=== PATIENT | female | born 2005 | race Caucasian/White ===

== ENCOUNTER 2023-03-03 12:19 | Outpatient (OUT) | payer OTHER, SELFPAY | END 2023-03-03 12:20 | disposition home or self-care (01) | LOC: PST 12:25 | PROVIDERS: Family Provider Family Medicine; PCP Family Medicine; Visit Provider Obstetrics & Gynecology | DX: Z01.818 Encounter for other preprocedural examination (principal); O02.1 Missed abortion ==

== ENCOUNTER 2023-03-05 06:16 | Day surgery (SDC) | payer OTHER, SELFPAY ==
[2023-03-03 12:47] VITALS: BP 112/65; PULSE 97; RESP 20; TEMP 36.1; O2SAT 98; BMI 25.5
[2023-03-05] VITALS (14 sets, daily range): BP systolic 105–118; BP diastolic 58–80; PULSE 62–102; RESP 14–39; TEMP 36.3–36.4; O2SAT 98–100; BMI 25.5
[2023-03-05 06:30] LABS: Basophils Absolute Auto 0.1 10^3/uL (0.0-0.1); Basophils Percent Auto 0.5 % (0.2-2.0); Eosinophils Absolute Auto 0.2 10^3/uL (0.0-0.7); Eosinophils Percent Auto 1.5 % (0.9-7.0); Hematocrit 37.6 % (36.0-48.0); Hemoglobin 12.4 g/dL (12.0-16.0); Immature Granulocytes Abs Auto 0.03 10^3/uL (0.00-0.03); Immature Granulocytes Pct Auto 0.3 % (0.0-0.5); Lymphocytes Absolute Auto 2.9 10^3/uL (1.2-3.8); Mean Corpuscular Hemoglobin 28.4 pg (26.7-34.0); Mean Corpuscular Volume 86.2 fL (81.0-99.0); Mean Platelet Volume 8.5 fL (9.5-13.5); Monocytes Absolute Auto 0.8 10^3/uL (0.3-0.8); Neutrophils Percent Auto 60.7 % (43.0-75.0); Platelet Count 315 10^3/uL (150-450); Red Blood Count 4.36 10^6/uL (4.20-5.40); Red Cell Distribution Width 14.2 % (11.0-15.0); White Blood Count 9.9 10^3/uL (4.0-11.0)
[2023-03-05 07:07] LABS: HCG Quantitative 8822 mIU/mL
[2023-03-05] MEDS: LACTATED RINGER'S SOLUTION 1,000 ML 50 ML IV (07:17)
--- NOTE | 2023-03-05 09:29 | PC.NURSE ---
Peripad changed for small amount bleeding; no clots noted; denies urge to void
--- NOTE | 2023-03-05 09:34 | P.ON_ITS ---
Brief Operative Note Date of procedure: 03/05/23 Pre-op diagnosis: missed Post-op diagnosis: same Procedure: NAME OF PROCEDURE: [D&C suction ] PROCEDURE: The patient was taken back to the OR where she was given general anesthesia w ithout difficulty. She was then placed in dorsal lithotomy position, prepped and draped in the normal sterile fashion. A weighted speculum was placed in the patient's vagina and the anterior lip of the cervix was identified and grasped with a single-tooth tenaculum. The patient was then gently dilated using Hegar dilators after we had sounded roughly to 12 cm. The suction curette was then tested. The suction curette was then placed in the patient's uterus and products of conception were removed using an 8-Portuguese suction curette. ?Excellent hemostasis was noted. The patient tolerated the procedure well. Sponge, lap, and needle counts were correct x 2. All instruments were then removed from the patient's vagina. The patient was taken to the Recovery Room in stable condition. ?? Anesthesia: SOBEIDAA Surgeon: Filiberto Brunson Estimated blood loss (mL): 20 Pathology: other (products of conception) Condition: stable Disposition: PACU
[2023-03-05] MEDS: LACTATED RINGER'S SOLUTION 1,000 ML 100 ML IV (09:47)
--- NOTE | 2023-03-05 09:59 | PC.NURSE ---
Denies urge to void; peripad has scant bloody drainage
--- NOTE | 2023-03-05 10:29 | PC.NURSE ---
pt urinates without difficulty at 1015
== END 2023-03-05 10:33 | disposition home or self-care (01) ==
PROVIDERS: Family Provider Family Medicine; PCP Family Medicine; Visit Provider Obstetrics & Gynecology
PROC: (CPT 1965; principal; 2023-03-05 07:30)
DX: O02.1 Missed abortion (principal)
CPT/HCPCS: 59820; 36415; 84702; 85025; 86850; 86900; 86901; 88305; J2704

== ENCOUNTER 2024-04-06 17:38 | Emergency (ER) | payer OTHER, SELFPAY ==
[2024-04-06 17:45] VITALS: BP 137/77; PULSE 97; TEMP 37.1; O2SAT 98; BMI 24.8
--- NOTE | 2024-04-06 17:48 | US_ITS ---
The [address] [address] Patient Name: ABHILASH CHOI MRN: [id number] date: 2005 Sex: F Assigned Patient Location: ER Current Patient Location: ED.MAIN Accession/Order Number: [id number] Exam Date: 04/06/2024 18:00 Report Date: 04/06/2024 19:31 At the request of: CONCHITA RIDER Procedure: US OB transvaginal EXAMINATION: US OB transvaginal TECHNIQUE: Transvaginal sonography. Grayscale and color flow Doppler imaging. HISTORY: rule out ectopic. COMPARISON: None. FINDINGS: Uterus and cervix: Uterus is normal size and retroverted. No focal abnormality. Endometrium: Thickness measures 14mm. Endometrium is unremarkable. No evidence for intrauterine . Right ovary: Measures 2.6 x 1.0 x 1.9 cm. Normal marinelli scale and Doppler appearance. Left ovary: Measures 4 x 2.6 x 3.2 cm. 2 cm corpus luteum of the left ovary. Normal left ovary blood flow. Adnexa: No adnexal mass lesion. Cul-de-sac: Small amount of anechoic simple free fluid in the adnexa. US/US OB transvaginal IMPRESSION: No demonstrable intrauterine or extrauterine . Continued monitoring of beta hCG levels recommended with repeat ultrasound if clinically necessary. Electronically authenticated by: BRIELLE KAT Date: 04/06/2024 19:31
--- NOTE | 2024-04-06 17:53 | ED_ITS ---
HPI - Abdominal Pain General Chief Complaint: Abdominal Pain Stated Complaint: 4 WEEKS Time Seen by Provider: 04/06/24 17:41 Source: patient Mode of arrival: walk-in Limitations: no limitations History of Present Illness HPI narrative: Patient is a 18-year-old female G2, who presents to the emergency department at approximately 4 weeks for evaluation of a possible ectopic. She was referred to the emergency department by her [facility] consultant. She states last night she had sharp pain radiating from the left lower quadrant into the suprapubic abdomen. She states today the pain is dull. No medications taken prior to arrival. She denies fevers, vomiting, vaginal bleeding or fluid leakage. No vaginal discharge. She has not had any urinary symptoms. She had a miscarriage about 1 year ago with D&C. Related Data Home Medications ?Medication ?Instructions ?Recorded ?Confirmed No Known Home Medications 04/06/24 04/06/24 Allergies Allergy/AdvReac Type Severity Reaction Status Date / Time No Known Drug Allergies Allergy Verified 03/05/23 07:18 Review of Systems ROS Constitutional Denies: fever or chills Ears, nose, mouth, and throat Denies: throat pain or nasal congestion Respiratory Denies: shortness of breath Gastrointestinal Reports: abdominal pain; Denies: nausea or vomiting Genitourinary Reports: pelvic pain; Denies: painful urination or urinary frequency Musculoskeletal Denies: back pain or neck pain Integumentary/Breast Denies: rash Neurological Denies: numbness in extremities or weakness in extremities Hematologic/Lymphatic Denies: easy bruising or easy bleeding PFSH PFS Medical History (Updated 04/06/24 @ 19:52 by ANNMARIE Gramajo) Missed ab ?O02.1 - Missed (ICD-10) Family History (Updated 03/03/23 @ 12:43 by Coco Willis RN) Other Family history of COPD (chronic obstructive pulmonary disease) Family history of diabetes mellitus Social History Within the past year, how often did you have a drink containing alcohol: never Score interpretation: A score less than 3 is consistent with normal alcohol consumption. Smoking status: Never smoker Non-prescribed substance use: denies use Previous occupational history: [employer] Known occupational exposures/hazards: No Highest level of school completed/degree received: high school graduate Little interest or pleasure in doing things: more than half the days Feeling down, depressed, or hopeless: not at all Feel stressed/tense/nervous/anxious/difficulty sleeping: not at all Exam Narrative Exam Narrative: Gen.: Awake, alert, in no distress Head: Normocephalic, atraumatic ENT: Moist mucous membranes Respiratory: No respiratory distress Gastrointestinal: Abdomen is soft, nondistended and mildly tender to palpation in the left lower quadrant with no guarding or rebound. No pain out of proportion on exam Extremities: Moves extremities equally Psych: Normal mood and affect Neuro: No focal neuro deficit Skin: Warm, dry, intact Constitutional Vital Signs, click to edit/add: Last Vital Signs Temp 98.7 F 04/06/24 17:45 Pulse 97 H 04/06/24 17:45 Resp 18 04/06/24 17:45 BP 137/77 04/06/24 17:45 Pulse Ox 98 04/06/24 17:45 O2 Del Method Room Air 04/06/24 17:45 Course Vital Signs Vital signs: Vital Signs Temperature 98.7 F 04/06/24 17:45 Pulse Rate 97 H 04/06/24 17:45 Respiratory Rate 18 04/06/24 17:45 Blood Pressure 137/77 04/06/24 17:45 Pulse Oximetry 98 04/06/24 17:45 Oxygen Delivery Method Room Air 04/06/24 17:45 Temperature 98.7 F 04/06/24 17:45 Pulse Rate 97 H 04/06/24 17:45 Respiratory Rate 18 04/06/24 17:45 Blood Pressure 137/77 04/06/24 17:45 Pulse Oximetry 98 04/06/24 17:45 Oxygen Delivery Method Room Air 04/06/24 17:45 MDM - Abdominal Pain MDM Narrative Medical decision making narrative: Quantitative hCG level is 300, urine specimen is unremarkable. Abdomen is soft and benign with stable vital signs. Patient with Rh+ blood type on file from previous. Ultrasound with no evidence of , likely due to low hCG. Patient given education and reassurance, she will need to follow closely with her [facility] provider for repeat testing of quantitative hCG levels. Return to the ER if symptoms change or worsen. Continue Tylenol as needed. SUPERVISED APC VISIT, PHYSICIAN ATTESTATION: Based on the medical record the care appears appropriate. ? Medical Records Attestation: I reviewed the patient's medical records. Lab Data Labs: Lab Results 04/06/24 04/06/24 Range/Units 17:56 19:25 WBC 7.4 (4.0-11.0) 10^3/uL RBC 4.59 (4.20-5.40) 10^6/uL Hgb 12.3 (12.0-16.0) g/dL Hct 38.5 (36.0-48.0) % MCV 83.9 (81.0-99.0) fL MCH 26.8 (26.7-34.0) pg MCHC 31.9 (29.9-35.2) g/dL RDW 14.5 (11.0-15.0) % Plt Count 325 (150-450) 10^3/uL MPV 9.2 L (9.5-13.5) fL Neut % (Auto) 65.1 (43.0-75.0) % Lymph % (Auto) 24.1 (20.5-60.0) % [place] % (Auto) 9.2 (1.7-12.0) % Eos % (Auto) 0.8 L (0.9-7.0) % Baso % (Auto) 0.4 (0.2-2.0) % Neut # (Auto) 4.8 (1.4-6.5) 10^3/uL Lymph # (Auto) 1.8 (1.2-3.8) 10^3/uL [place] # (Auto) 0.7 (0.3-0.8) 10^3/uL Eos # (Auto) 0.1 (0.0-0.7) 10^3/uL Baso # (Auto) 0.0 (0.0-0.1) 10^3/uL Abs Immat Gran (auto) 0.03 (0.00-0.03) 10^3/uL Imm/Tot Granulo (auto) 0.4 (0.0-0.5) % HCG, Quant 308 mIU/mL Urine Color Yellow (YELLOW) Urine Clarity Clear (CLEAR) Urine pH 6.0 (5.0-9.0) Ur Specific [place] >=1.030 A (1.005-1.025) Urine Protein Negative (NEG/TRACE) mg/dL Urine Glucose (UA) Negative (NEGATIVE) mg/dL Urine Ketones 15 A (NEGATIVE) mg/dL Urine Occult Blood Negative (NEGATIVE) Urine Nitrite Negative (NEGATIVE) Urine Bilirubin Negative (NEGATIVE) Urine Urobilinogen 0.2 (0.2-1.0) EU/dL Ur Leukocyte Esterase Negative (NEGATIVE) Imaging Data US - abdomen: Attestation: I have reviewed the pertinent imaging results. Radiologist's impression: ITS Impressions Transvaginal US 04/06/24 17:48 IMPRESSION: No demonstrable intrauterine or extrauterine . Continued monitoring of beta hCG levels recommended with repeat ultrasound if clinically necessary. Electronically authenticated by: BRIELLE KAT Date: 04/06/2024 19:31 Discharge Plan Discharge Chief Complaint: Abdominal Pain Clinical Impression: Pelvic pain Patient Disposition: Home, Self-Care Time of Disposition Decision: 19:52 Condition: Good Prescriptions / Home Meds: No Action No Known Home Medications Print Language: Filipino Instructions: Abdominal Pain in (ED) Referrals: LAURA CANALES [Primary Care Provider] - 1 week TIAGO BRIZUELA APRN, CNM [Physician] - As soon as possible
[2024-04-06 18:48] LABS: Basophils Percent Auto 0.4 % (0.2-2.0); Eosinophils Absolute Auto 0.1 10^3/uL (0.0-0.7); Eosinophils Percent Auto 0.8 % (0.9-7.0); Hematocrit 38.5 % (36.0-48.0); Hemoglobin 12.3 g/dL (12.0-16.0); Immature Granulocytes Abs Auto 0.03 10^3/uL (0.00-0.03); Immature Granulocytes Pct Auto 0.4 % (0.0-0.5); Lymphocytes Absolute Auto 1.8 10^3/uL (1.2-3.8); Lymphocytes Percent Auto 24.1 % (20.5-60.0); Mean Corpuscular HGB Conc 31.9 g/dL (29.9-35.2); Mean Corpuscular Hemoglobin 26.8 pg (26.7-34.0); Mean Corpuscular Volume 83.9 fL (81.0-99.0); Mean Platelet Volume 9.2 fL (9.5-13.5); Monocytes Absolute Auto 0.7 10^3/uL (0.3-0.8); Monocytes Percent Auto 9.2 % (1.7-12.0); Neutrophils Absolute Auto 4.8 10^3/uL (1.4-6.5); Neutrophils Percent Auto 65.1 % (43.0-75.0); Platelet Count 325 10^3/uL (150-450); Red Blood Count 4.59 10^6/uL (4.20-5.40); Red Cell Distribution Width 14.5 % (11.0-15.0); White Blood Count 7.4 10^3/uL (4.0-11.0)
[2024-04-06 19:15] LABS: HCG Quantitative 308 mIU/mL
[2024-04-06 19:48] LABS: Bilirubin Urine NEGATIVE (NEGATIVE); Blood Urine NEGATIVE (NEGATIVE); Clarity Urine CLEAR (CLEAR); Color Urine YELLOW (YELLOW); Glucose Urine UA NEGATIVE (NEGATIVE); Ketones Urine 15 mg/dL (NEGATIVE); Leukocyte Esterase Urine NEGATIVE (NEGATIVE); Nitrite Urine NEGATIVE (NEGATIVE); Protein Urine NEGATIVE (NEG/TRACE); Specific Gravity Urine >=1.030 (1.005-1.025); Urobilinogen Urine 0.2 EU/dL (0.2-1.0)
[2024-04-06 19:49] LABS: Urine Microscopic Indicated NO
== END 2024-04-06 19:59 | disposition home or self-care (01) ==
PROVIDERS: Physician Assistant; Emergency Provider Student in an Organized Health Care Education/Training Program; Family Provider Family Medicine; PCP Family Medicine
DX: R10.2 Pelvic and perineal pain (principal)
CPT/HCPCS: 36415; 76817; 81003; 84702; 85025; 99284

== ENCOUNTER 2024-08-09 19:05 | Outpatient (OUT) | payer OTHER, SELFPAY ==
--- NOTE | 2024-08-09 19:19 | US_ITS ---
[address] [address] Patient Name: ABHILASH CHOI MRN: [id number] date: 2005 Sex: F Assigned Patient Location: US Current Patient Location: Accession/Order Number: [id number] Exam Date: 08/09/2024 19:25 Report Date: 08/10/2024 07:19 At the request of: TIAGO BRIZUELA Procedure: US OB anatomy EXAMINATION: US OB anatomy HISTORY: RELATED CONDITION IN SECOND TRIMESTER O26.92 COMPARISON: No relevant comparison available. TECHNIQUE: Transabdominal sonographic examination was performed for obstetrical and evaluation. FINDINGS: Number: 1 Heart Rate: 149.17 bpm H.B. /min Amniotic Fluid Volume: Subjectively normal Placental Location: ANTERIOR, grade 1. Placental edge is 7.6 cm from the internal cervical os Cervix Length: 3.41 cm , closed Normal anatomy: Lateral ventricles, cerebellum, posterior fossa, nose, lips, orbits, four-chamber heart, RVOT, LVOT, diaphragm, stomach, kidneys, abdominal cord insertion, bladder, umbilical arteries, three-vessel cord, spine, extremities BIOMETRY: BPD: 5.24 cm; 21 weeks 6 days; 31.70 % HC: 19.36 cm; 21 weeks 4 days; 13.50 % AC: 16.83 cm; 21 weeks 6 days; 27.80 % FL: 3.94 cm; 22 weeks 5 days; 53.10 % EFW:479.47 g; 36.10 % FL/AC: 23.41 FL/BPD: 75.22 HC/AC: 1.15 GESTATIONAL AGE: Age by EDC: 22 weeks 2 days OZZIE by EDC: 2024-12-11 Age by current US: 22 weeks 0 days OZZIE by current US: 2024-12-13 US/US OB anatomy IMPRESSION: Normal anatomy scan *Reference: [facility] Practice Guideline for the performance of Obstetric Ultrasound Examinations, May 02, 2007. Electronically authenticated by: LISA RAMSEY Date: 08/10/2024 07:19
== END 2024-08-09 19:06 | disposition home or self-care (01) ==
PROVIDERS: Family Provider Family Medicine; PCP Family Medicine; Visit Provider Midwife
DX: O26.92 Pregnancy related conditions, unspecified, second trimester (principal); Z3A.22 22 weeks gestation of pregnancy
CPT/HCPCS: 76805

== ENCOUNTER 2024-12-14 09:38 | Inpatient (IN) | payer OTHER, SELFPAY ==
[2024-12-14] VITALS (33 sets, daily range): BP systolic 113–150; BP diastolic 56–96; PULSE 60–105; TEMP 36.5–36.9
--- OUTSIDE RECORDS SUMMARY | 2024-12-14 10:01 | XMS_ITS | CCD ---
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 Name Role Phone Iain SAUL, Karma Jain Primary Care Provider [phone] FLORO, TIAGO L Attending Unavailable FLORO, TIAGO L Attending Unavailable FLORO, TIAGO L Referring Unavailable FLORO, TIAGO L Attending Unavailable FLORO, TIAGO L Attending Unavailable FLORO, TIAGO L Attending Unavailable KIM, AMISHA Mccoy Attending Unavailable JUDY, AMISHA Mccoy Attending Unavailable KARMA TIMMONS Attending Unavailable FLORO, TIAGO Cinthia Attending Unavailable FLORO, ITAGO L Attending Unavailable FLORO, TIAGO L Attending Unavailable FLORO, TIAGO L Referring Unavailable FLORO, TIAGO L Attending Unavailable FLORO, TIAGO L Attending Unavailable FLORO, TIAGO L Referring Unavailable FLORO, TIAGO L Attending Unavailable FLORO, TIAGO L Referring Unavailable FLORO, TIAGO L Attending Unavailable FLORO, TIAGO L Attending Unavailable Allergies Allergy Classification Reported Allergen(s) Allergy Type Date of Onset Reaction(s) Facility (20 sources) [place] Propensity to adverse reactions 1 [facility] Medications Current Medications Medication Drug Class(es) Dates Sig (Normalized) Sig (Original) Vit-Fe Fumarate-FA ( Vitamins) 27-0.8 MG tablet (20 sources) Vit-Fe Fumarate-FA ( Vitamins) 27-0.8 MG tablet Take by mouth Active sertraline 25 mg oral tablet (20 sources) Serotonin Reuptake Inhibitor Start: 07-31-2024 take 1 tablet by mouth once daily sertraline (Zoloft) 25 MG tablet Indications: Anxiety, generalized (CMS/HCC) Take 1 tablet (25 mg) by mouth Daily 30 tablet 2 07/31/2024 Active Completed/Discontinued Medications Medication Drug Class(es) Dates Sig (Normalized) Sig (Original) amitriptyline hydrochloride 25 mg oral tablet (3 sources) Tricyclic Antidepressant Start: 01-25-2024 End: 04-11-2024 take 1 tablet by mouth at bedtime amitriptyline (Elavil) 25 MG tablet Indications: Primary insomnia Take 1 tablet (25 mg) by mouth at bedtime 30 tablet 1 01/25/2024 04/11/2024 Discontinued (Therapy completed) ethinyl estradiol 0.02 mg / levonorgestrel 0.1 mg oral tablet (3 sources) Progestin, Estrogen, Progestin-containing Intrauterine Device Start: 12-21-2023 End: 04-11-2024 take 0.1-20 tablets by mouth once daily levonorgestrel-eth inyl estradiol (Aviane, Alesse, Lessina) 0.1-20 MG-MCG tablet Indications: Menorrhagia with regular cycle Take 1 tablet by mouth Daily 28 tablet 2 12/21/2023 04/11/2024 Discontinued (Therapy completed) Problems Active Problems Problem Classification Problem Date Documented Date Episodic/Chronic Anxiety disorders (20 sources) Posttraumatic stress disorder; Translations: [Post-traumatic stress disorder, unspecified] Onset: 03-29-2023 03-29-2023 Chronic Headache; including migraine (20 sources) Chronic cluster headache; Translations: [Chronic cluster headache, not intractable] Onset: 12-21-2023 12-21-2023 Chronic Menstrual disorders (20 sources) Menorrhagia; Translations: [Excessive and frequent menstruation with regular cycle] Onset: 12-21-2023 12-21-2023 Chronic Other conditions (2 sources) [id number] at regardless of gestation period; Translations: [Other heavy for gestational age ] 12-05-2024 Episodic Other and delivery including normal (20 sources) test positive; Translations: [Encounter for test, result positive] 05-29-2024 Episodic Other screening for suspected conditions (not mental disorders or infectious disease) (2 sources) Patient encounter status; Translations: [Encounter for screening for Streptococcus B] 11-15-2024 Episodic Residual codes; unclassified (2 sources) Gestation period, 12 weeks; Translations: [12 weeks gestation of ] 05-29-2024 Episodic Residual codes; unclassified (2 sources) Gestation period, 8 weeks; Translations: [8 weeks gestation of ] 05-01-2024 Episodic Past or Other Problems Problem Classification Problem Date Documented Da te Episodic/Chronic Cardiac dysrhythmias (20 sources) Tachycardia; Translations: [Tachycardia, unspecified] Onset: 12-21-2023 12-21-2023 Episodic Hemorrhage during ; abruptio placenta; placenta previa (2 sources) Threatened miscarriage in first trimester; Translations: [Threatened ] 04-11-2024 Episodic Mood disorders (20 sources) Mood disorders Onset: 01-25-2024 01-25-2024 Results Test Name Value Interpretation Reference Range Facil ity US OB FOLLOW UP TRANSABDOMIN AL APPROACHon 12-08-2024 US OB FOLLOW UP TRANSABDOMINAL APPROACH TITLE OF EXAM: OB Ultrasound: REASON FOR EXAM: IUGR COMPARISON: 10/05/2024, 08/09/2024, 05/01/2024 TECHNIQUE: Grayscale and M-mode Doppler imaging is performed. FINDINGS: heart rate: 136 bpm CHULA: 14.2 cm (7.1-21.9) BPD: 8.7 cm HC: 31.2 cm AC: 34.4 cm FL: 7.1 cm GA for sonogram: 35.7 wk (33.3-38.2) Cervix length: 5.0 cm OZZIE: 12/11/2024 Weight Estimate: Weight: 3112 gm / 6 lbs, 13 oz (5471-9975 gm) [place] Normal: 3540 gm (6157-7699 gm) [place] Wt%: 18% for 39.6 wks LMP: 03-06-24 Age by LMP: 39 w 4 d Age Prior US: 39 w 4 d Age US Today: 36 w 1 d OZZIE by LMP: 12-11-24 OZZIE Prior US: 12-11-24 OZZIE US Today: 01-04-25 Gestation: Single Position: Cephalic Placental Location: Anterior Placental Grade: 3 Heart Rate: 136 bpm Somatic Movement: Yes Cervical Length: 5.0 cm Fluid-filled stomach noted. MVP 5.1 cm. IMPRESSION: 1. Single live intrauterine gestation in cephalic position estimated at 35.7 weeks. This is approximately 4 weeks behind clinical dates and dating from prior ultrasound. 2. Normal CHULA. 3. Grade 3 anterior placenta. Dictated and transcribed 12/08/24/bart rodríguez [facility] sent results to ordering physician. This report has been electronically signed and approved by the interpreting radiologist. Normal Not Available US OB FOLLOW UP TRANSABDOMIN AL APPROACHon 10-05-2024 US OB FOLLOW UP TRANSABDOMINAL APPROACH TITLE OF EXAM: OB Ultrasound: REASON FOR EXAM: Growth COMPARISON: 08/09/2024, 05/01/2024 TECHNIQUE: Grayscale and M-mode Doppler imaging is performed. FINDINGS: heart rate: 143 bpm CHULA: 15.5 cm (8.9-23.6) BPD: 7.4 cm HC: 27.4 cm AC: 25.5 cm FL: 5.7 cm GA for sonogram: 29.4 wk (27.6-31.2) Cervix length: 3.6 cm OZZIE: 12/11/2024 Weight Estimate: Weight: 1448 gm / 3 lbs, 3 oz (0146-1498 gm) [place]lock Normal: 1641 gm (9284-4321 gm) [place] Wt%: 18% for 30.4 wks Age by LMP: 30 w 3 d OZZIE by LMP: 12/11/24 Gestation: Single Position: Cephalic Placental Location: Anterior Placental Grade: 2 Somatic Movement: Yes IMPRESSION: Single live intrauterine gestation in cephalic position estimated at 29 weeks 5 days. This is approximately 5 days behind provided clinical dates which is within biometric variation. Dictated and transcribed 10/06/24dpd This report has been electronically signed and approved by the interpreting radiologist. Normal Not Available US OB < 14 WEEKS EARLYon US OB < 14 WEEKS EARLY TITLE OF EXAM: OB Ultrasound: REASON FOR EXAM: Dating, New OB. TECHNIQUE: Grayscale imaging is performed. Measurements: heart rate: 163 bpm Sac: 2.9 cm CRL: 1.6 cm GA for sonogram: 8.0 wk (07.4-08.6) Cervix Length: 3.7 cm OZZIE: 12/11/2024 CLINICAL SUMMARY: Endovaginal exam was performed. Early intrauterine is seen with positive cardiac activity. Yolk sac is identified and within normal limits. heart is observed with a heart rate of 163. Uterus and adnexae: No abnormalities seen. Limited study. Full anatomical survey not performed. Dictated and transcribed 05/02/24dpd This report has been electronically signed and approved by the interpreting radiologist. Electronically Signed Prabhjot Simpson M.D. 2024-05-02 12:50:19 Normal Not Available Vital Signs Date Time Vital Sign Value Performing Clinician Kamille morales 12-05-2024 16:38-0400 Body mass index (BMI) [Ratio] 35.43 kg/m2 Tiago Floro CNM Work Phone: [facility] 12-05-2024 16:38-0400 Body weight 90.72 kg Tiago Floro CNM Work Phone: [facility] 12-05-2024 16:38-0400 Diastolic blood pressure 80 mm[Hg] Tiago Floro CNM Work Phone: [facility] 12-05-2024 16:38-0400 Systolic blood pressure 120 mm[Hg] Tiago Floro CNM Work Phone: [facility] 11-29-2024 16:29-0400 Body mass index (BMI) [Ratio] 35.43 kg/m2 Tiago Floro CNM Work Phone: [facility] 11-29-2024 16:29-0400 Body weight 90.72 kg Tiago Floro CNM Work Phone: [facility] 11-29-2024 16:29-0400 Diastolic blood pressure 70 mm[Hg] Tiago Floro CNM Work Phone: [facility] 11-29-2024 16:29-0400 Systolic blood pressure 120 mm[Hg] Tiago Floro CNM Work Phone: [facility] 11-22-2024 16:15-0400 Body mass index (BMI) [Ratio] 34.37 kg/m2 Tiago Floro CNM Work Phone: [facility] 11-22-2024 16:15-0400 Body weight 88 kg Tiago Floro CNM Work Phone: [facility] 11-22-2024 16:15-0400 Diastolic blood pressure 80 mm[Hg] Tiago Floro CNM Work Phone: [facility] 11-22-2024 16:15-0400 Systolic blood pressure 120 mm[Hg] Tiago Floro CNM Work Phone: [facility] 11-15-2024 16:31-0400 Body mass index (BMI) [Ratio] 34.54 kg/m2 Tiago Floro CNM Work Phone: [facility] 11-15-2024 16:31-0400 Body weight 88.45 kg Tiago Floro CNM Work Phone: [facility] 11-15-2024 16:31-0400 Diastolic blood pressure 80 mm[Hg] Tiago Floro CNM Work Phone: [facility] 11-15-2024 16:31-0400 Systolic blood pressure 120 mm[Hg] Tiago Floro CNM Work Phone: [facility] 11-08-2024 15:44-0400 Body mass index (BMI) [Ratio] 34.37 kg/m2 Tiago Floro CNM Work Phone: [facility] 11-08-2024 15:44-0400 Body weight 88 kg Tiago Floro CNM Work Phone: [facility] 11-08-2024 15:44-0400 Diastolic blood pressure 72 mm[Hg] Tiago Floro CNM Work Phone: [facility] 11-08-2024 15:44-0400 Systolic blood pressure 110 mm[Hg] Tiago Floro CNM Work Phone: [facility] 10-23-2024 17:03-0400 Body mass index (BMI) [Ratio] 33.48 kg/m2 Tiago Floro CNM Work Phone: [facility] 10-23-2024 17:03-0400 Body weight 85.73 kg Tiago Floro CNM Work Phone: [facility] 10-23-2024 17:03-0400 Diastolic blood pressure 80 mm[Hg] Tiago Floro CNM Work Phone: [facility] 10-23-2024 17:03-0400 Systolic blood pressure 118 mm[Hg] Tiago Floro CNM Work Phone: [facility] 08-29-2024 16:07-0500 Body mass index (BMI) [Ratio] 30.82 kg/m2 Tiago Floro CNM Work Phone: [facility] 08-29-2024 16:07-0500 Body weight 78.93 kg Tiago Floro CNM Work Phone: [facility] 08-29-2024 16:07-0500 Diastolic blood pressure 70 mm[Hg] Tiago Floro CNM Work Phone: [facility] 08-29-2024 16:07-0500 Systolic blood pressure 120 mm[Hg] Tiago Floro CNM Work Phone: [facility] 07-31-2024 18:16-0500 Body mass index (BMI) [Ratio] 30.29 kg/m2 Tiago Floro CNM Work Phone: [facility] 07-31-2024 18:16-0500 Body weight 77.56 kg Tiago Floro CNM Work Phone: [facility] 07-31-2024 18:16-0500 Diastolic blood pressure 80 mm[Hg] Tiago Floro CNM Work Phone: [facility] 07-31-2024 18:16-0500 Systolic blood pressure 120 mm[Hg] Tiago Floro CNM Work Phone: [facility] 05-29-2024 16:07-0400 Body mass index (BMI) [Ratio] 28.52 kg/m2 Tiago Floro CNM Work Phone: [facility] 05-29-2024 16:07-0400 Body weight 73.03 kg Tiago Floro CNM Work Phone: [facility] 05-29-2024 16:07-0400 Diastolic blood pressure 70 mm[Hg] Tiago Floro CNM Work Phone: [facility] 05-29-2024 16:07-0400 Systolic blood pressure 112 mm[Hg] Tiago Kim CNM Work Phone: [facility] 05-01-2024 13:43-0400 Body mass index (BMI) [Ratio] 28.87 kg/m2 Tiago Kim CNM Work Phone: [facility] 05-01-2024 13:43-0400 Body weight 73.94 kg Tiago Kim CNM Work Phone: [facility] 04-11-2024 10:56-0400 Body height 160 cm Karma Timmons MD Work Phone: [facility] 04-11-2024 10:56-0400 Body mass index (BMI) [Ratio] 28.87 kg/m2 Karma Timmons MD Work Phone: [facility] 04-11-2024 10:56-0400 Body weight 73.94 kg Karma Timmons MD Work Phone: [facility] 04-11-2024 10:56-0400 Diastolic blood pressure 70 mm[Hg] Karma Timmons MD Work Phone: [facility] 04-11-2024 10:56-0400 Heart rate 88 /min Karma Timmons MD Work Phone: [facility] 04-11-2024 10:56-0400 Respiratory rate 18 /min Karma Timmons MD Work Phone: [facility] 04-11-2024 10:56-0400 SaO2% (BldA) [Mass fraction] 100 % Karma Timmons MD Work Phone: [facility] 04-11-2024 10:56-0400 Systolic blood pressure 122 mm[Hg] Karma Timmons MD Work Phone: [facility] Encounters Encounter Date Encounter Type Care Provider Facility Start: 12-11-2024 ambulatory TIAGO Cinthia BLACKWyatt Not Bertha ilable Start: 12-08-2024 End: 12-08-2024 ambulatory TIAGO L FLORO Not Available Start: 12-05-2024 End: 12-05-2024 ambulatory TIAGO L FLORO Not Available Start: 12-05-2024 End: 12-05-2024 Subsequent care visit Tiago L Floro CNM Work Phone: [facility] Comment on above: Large for dates (Sade karma Dx); Encounter for care of first , third trimester Start: 12-05-2024 End: 12-05-2024 Bamboo flowsheet Tiago L Floro CNM Work Phone: [facility] Start: 12-05-2024 End: 12-05-2024 Bamboo flowsheet Tiago L Floro CNM Work Phone: [facility] Start: 11-29-2024 End: 11-29-2024 Subsequent care visit Tiago L Floro CNM Work Phone: [facility] Comment on above: Encounter for prenat al care of first , third trimester (Primary Dx) Start: 11-29-2024 End: 11-29-2024 ambulatory TIAGO L FLORO Not Available Start: 11-29-2024 End: 11-29-2024 Bamboo flowsheet Tiago L Floro CNM Work Phone: [facility] Start: 11-29-2024 End: 11-29-2024 Bamboo flowsheet Tiago L Floro CNM Work Phone: [facility] Start: 11-22-2024 End: 11-22-2024 Subsequent care visit Tiago L Floro CNM Work Phone: [facility] Comment on above: Encounter for prenat al care of first , third trimester (Primary Dx) Start: 11-22-2024 End: 11-22-2024 ambulatory TIAGO L FLORO Not Available Start: 11-22-2024 End: 11-22-2024 Bamboo flowsheet Tiago L Floro CNM Work Phone: [facility] Start: 11-22-2024 End: 11-22-2024 Bamboo flowsheet Tiago L Floro CNM Work Phone: [facility] Start: 11-15-2024 End: 11-15-2024 Subsequent care visit Tiago L Floro CNM Work Phone: [facility] Comment on above: Encounter for prenat al care of first , third trimester (Primary Dx); screening for streptococcus B Start: 11-15-2024 End: 11-15-2024 ambulatory TIAGO L FLORO Not Available Start: 11-15-2024 End: 11-15-2024 Bamboo flowsheet Tiago L Floro CNM Work Phone: [facility] Start: 11-15-2024 End: 11-15-2024 Bamboo flowsheet Tiago L Floro CNM Work Phone: [facility] Start: 11-08-2024 End: 11-08-2024 ambulatory TIAGO L FLORO Not Available Start: 11-08-2024 End: 11-08-2024 Subsequent care visit Tiago L Floro CNM Work Phone: [facility] Comment on above: Encounter for prenat al care of first , third trimester (Primary Dx) Start: 11-08-2024 End: 11-08-2024 Bamboo flowsheet Tiago L Floro CNM Work Phone: [facility] Start: 11-08-2024 End: 11-08-2024 Bamboo flowsheet Tiago L Floro CNM Work Phone: [facility] Start: 10-23-2024 End: 10-23-2024 ambulatory TIAGO L FLORO Not Available Start: 10-23-2024 End: 10-23-2024 Subsequent care visit Tiago L Floro CNM Work Phone: [facility] Comment on above: Encounter for prenat al care of first , third trimester (Primary Dx) Start: 10-23-2024 End: 10-23-2024 Bamboo flowsheet Tiago L Floro CNM Work Phone: [facility] Start: 10-23-2024 End: 10-23-2024 Bamboo flowsheet Tiago L Floro CNM Work Phone: [facility] Start: 10-05-2024 End: 10-05-2024 ambulatory TIAGO L FLORO Not Available Start: 09-21-2024 End: 09-21-2024 ambulatory TIAGO L FLORO Not Available Start: 09-21-2024 End: 09-21-2024 Bamboo flowsheet Tiago L Floro CNM Work Phone: [facility] Start: 09-21-2024 End: 09-21-2024 Bamboo flowsheet Tiago L Floro CNM Work Phone: [facility] Start: 08-29-2024 End: 08-29-2024 flow sheet Tiago L Floro CNM Work Phone: [facility] Comment on above: Anxiety, generalized (CMS/HCC) (Primary Dx); Encounter for supervision of other normal , second trimester Start: 08-29-2024 End: 08-29-2024 ambulatory TIAGO L FLORO Not Available Start: 08-29-2024 End: 08-29-2024 Bamboo flowsheet Tiago L Floro CNM Work Phone: [facility] Start: 08-29-2024 End: 08-29-2024 Bamboo flowsheet Tiago L Floro CNM Work Phone: [facility] Start: 08-15-2024 End: 08-15-2024 Telephone encounter Melinda TYLER [facility] Start: 07-31-2024 End: 07-31-2024 Subsequent care visit Tiago L Floro CNM Work Phone: [facility] Comment on above: Anxiety, generalized (CMS/HCC) (Primary Dx); Encounter for supervision of other normal , second trimester Start: 07-31-2024 End: 07-31-2024 ambulatory TIAGO L FLORO Not Available Start: 07-31-2024 End: 07-31-2024 Bamboo flowsheet Tiago L Floro CNM Work Phone: [facility] Start: 07-31-2024 End: 07-31-2024 Bamboo flowsheet Tiago L Floro CNM Work Phone: [facility] Start: 07-28-2024 End: 07-28-2024 Telephone encounter Karma Timmons MD Work Phone: [facility] Start: 06-26-2024 End: 06-26-2024 ambulatory TIAGO L FLORO Not Available Start: 06-26-2024 End: 06-26-2024 Bamboo flowsheet Tiago L Floro CNM Work Phone: [facility] Start: 06-26-2024 End: 06-26-2024 Bamboo flowsheet Tiago L Floro CNM Work Phone: [facility] Start: 05-29-2024 End: 05-29-2024 Office outpatient visit 15 minutes Tiago L Floro CNM Work Phone: [facility] Comment on above: 12 weeks gestation o f (Primary Dx); examination or test, positive result Start: 05-29-2024 End: 05-29-2024 ambulatory TIAGO L FLORO Not Available Start: 05-29-2024 End: 05-29-2024 Bamboo flowsheet Tiago L Floro CNM Work Phone: [facility] Start: 05-29-2024 End: 05-29-2024 Bamboo flowsheet Tiago L Floro CNM Work Phone: [facility] Start: 05-01-2024 End: 05-01-2024 Bamboo flowsheet Tiago L Floro CNM Work Phone: [facility] Start: 05-01-2024 End: 05-01-2024 Bamboo flowsheet Tiago Kim CNM Work Phone: [facility] Start: 05-01-2024 End: 05-01-2024 Initial care visit Tiago Kim CNM Work Phone: [facility] Comment on above: GA: 8w0d Start: 05-01-2024 End: 05-01-2024 ambulatory TIAGO Vicente CHATA Not Available Start: 04-11-2024 End: 04-11-2024 Bamboo flowsheet Karma Timmons MD Work Phone: [facility] Start: 04-11-2024 End: 04-11-2024 Bamboo flowsheet Karma Timmons MD Work Phone: [facility] Start: 04-11-2024 End: 04-11-2024 ambulatory KARMA TIMMONS Not Available Start: 04-11-2024 End: 04-11-2024 Office outpatient visit 15 minutes Karma Timmons MD Work Phone: [facility] Comment on above: Threatened in early (Primary Dx) Start: 01-25-2024 End: 01-25-2024 ambulatory AMISHA KIM Not Available Start: 12-21-2023 End: 12-21-2023 ambulatory AMISHA KIM Not Available Plan of Treatment Date Care Activity Detail Author Start: 04-02-2025 Influenza vaccination Influenz a Vaccine (Season Ended) [facility] Start: 01-29-2025 Influenza vaccination Influenza Vacc ine (#1) [facility] Comment on above: Postponed from 04/02 (Patient Refused) Start: 12-11-2024 End: 12-11-2024 Patient encounter procedure 12/11/2024 4:30 PM EDT Routine [facility] [address] [place] [address] Tiago Kim CNM [address] [place] [address] [facility] Start: 12-08-2024 End: 12-08-2024 Professional / ancillary services management 12/08/2024 9:30 AM EDT Ancillary Procedure [facility] [address] [id number] [facility] Start: 12-05-2024 End: 12-05-2024 Patient encounter procedure 12/05/2024 4:30 PM EDT Routine [facility] [address] [place] [id number] Tiago Kim, CNM [address] [place], [place] [id number] [facility] Start: 12-05-2024 End: 12-05-2025 US for US OB follow up transabdominal approach Imaging Routine Large for dates Expected: 12/05/2024, Expires: 12/05/2025 [facility] Work Phone: Comment on above: Expected: 12/05/2024 , Expires: 12/05/2025 Start: 11-29-2024 End: 11-29-2024 Patient encounter procedure [facility] Comment on above: Arrived Start: 11-22-2024 End: 11-22-2024 Patient encounter procedure [facility] Comment on above: Arrived Start: 11-15-2024 End: 11-15-2024 Patient encounter procedure 11/15/2024 4:30 PM EDT Routine [facility] [address] [place] [phone] Tiago Kim, CNM [address] [place], [place] [id number] [facility] Start: 11-15-2024 End: 11-15-2025 STREPTOCCOUS, GROUP B CULTURE STREPTOCCOUS, GROUP B CULTURE Lab Routine screening for streptococcus B Expected: 11/15/2024 (Approximate), Expires: 11/15/2025 [facility] Work Phone: Comment on above: Expected: 11/15/2024 (Approximate), Expires: 11/15/2025 Start: 11-07-2024 End: 11-07-2024 Patient encounter procedure 11/07/2024 4:30 PM EDT Routine [facility] [address] [place] [address] Tiago Kim, CNM [address] [place] [address] [facility] Start: 10-23-2024 End: 10-23-2024 Patient encounter procedure 10/23/2024 4:45 PM EDT Routine [facility] [address] [place] [address] Tiago Kim, CNM [address] [place] [address] [facility] Start: 09-21-2024 End: 09-21-2024 Patient encounter procedure 09/21/2024 2:30 PM EST Routine [facility] [address] [place] [address] Tiago Kim, CNM [address] [place] [address] [facility] Start: 08-29-2024 End: 08-29-2024 Patient encounter procedure [facility] Comment on above: Arrived Start: 07-31-2024 End: 07-31-2024 Patient encounter procedure [facility] Comment on above: Arrived Start: 06-26-2024 End: 06-26-2024 Patient encounter procedure [facility] Comment on above: Arrived Start: 05-29-2024 End: 05-29-2024 Patient encounter procedure [facility] Comment on above: examinatio n or test, positive result; 8 weeks gestation of Start: 05-22-2024 End: 05-22-2024 Patient encounter procedure 05/22/2024 9:30 AM EDT Office Visit [facility] [address] [facility] [address] [place] [address] Mckeznie Hong, BURN OUT SCARFING OPERATOR-COMMERCIAL FINANCE MANAGER [address] [facility] [address] [place] [address] [facility] Start: 05-01-2024 End: 05-01-2025 Bacteria identified in Urine by Culture Urine culture Microbiology Routine Amenorrhea examination or test, positive result 8 weeks gestation of Expected: 05/01/2024 (Approximate), Expires: 05/01/2025 [facility] Comment on above: Expected: 05/01/2024 (Approximate), Expires: 05/01/2025 Start: 05-01-2024 End: 05-01-2025 DRUG TOX MONITORIGN 6 W/ CONF,URINE DRUG TOX MONITORIGN 6 W/ CONF,URINE Lab Routine Amenorrhea examination or test, positive result 8 weeks gestation of Expected: 05/01/2024 (Approximate), Expires: 05/01/2025 [facility] Comment on above: Expected: 05/01/2024 (Approximate), Expires: 05/01/2025 Start: 05-01-2024 End: 05-01-2025 Neisseria gonorrhoeae DNA [Presence] in Cervical mucus by PAULINE with probe detection C. trachomatis / N. gonorrhoeae, DNA probe Pathology and Cytology Routine Amenorrhea examination or test, positive result 8 weeks gestation of Expected: 05/01/2024 (Approximate), Expires: 05/01/2025 [facility] Comment on above: Expected: 05/01/2024 (Approximate), Expires: 05/01/2025 Start: 05-01-2024 End: 05-01-2024 Professional / ancillary services management 05/01/2024 2:00 PM EDT Ancillary Procedure [facility] [address] [facility] [address] [place] [id number] [facility] Start: 05-01-2024 End: 05-01-2025 TSH W/REFLEX TO FT4 TSH W/REFLEX TO FT4 Lab Routine Amenorrhea examination or test, positive result 8 weeks gestation of Expected: 05/01/2024 (Approximate), Expires: 05/01/2025 [facility] Comment on above: Expected: 05/01/2024 (Approximate), Expires: 05/01/2025 Start: 05-01-2024 End: 05-01-2025 URINALYSIS MICROSCOPIC URINALYSIS MICROSCOPIC Lab Routine Amenorrhea examination or test, positive result 8 weeks gestation of Expected: 05/01/2024 (Approximate), Expires: 05/01/2025 [facility] Comment on above: Expected: 05/01/2024 (Approximate), Expires: 05/01/2025 Start: 05-01-2024 End: 05-01-2024 ambulatory [facility] Comment on above: Arrived Start: 04-11-2024 End: 04-11-2025 HCG, quantitative, HCG, quantitative, Lab Routine Threatened in early Expected: 04/11/2024 (Approximate), Expires: 04/11/2025 [facility] Work Phone: Comment on above: Expected: 04/11/2024 (Approximate), Expires: 04/11/2025 Start: 04-02-2024 Influenza vaccination Influenza Vacc ine (#1) [facility] ABO/Rh ABO/Rh Lab Routi ne Amenorrhea examination or test, positive result 8 weeks gestation of Ordered: 05/01/2024 [facility] Comment on above: Ordered: 05/01/2024 Antibody screen Antibody screen Lab Routine Amenorrhea examination or test, positive result 8 weeks gestation of Ordered: 05/01/2024 [facility] Comment on above: Ordered: 05/01/2024 CBC panel - Blood by Automated count CBC Lab Routine Amenorrhea examination or test, positive result 8 weeks gestation of Ordered: 05/01/2024 [facility] Comment on above: Ordered: 05/01/2024 Hemoglobin A1c/Hemoglobin.total in Blood Hemoglobin A1c Lab Routine Amenorrhea examination or test, positive result 8 weeks gestation of Ordered: 05/01/2024 [facility] Comment on above: Ordered: 05/01/2024 Hepatitis B virus surface Ag [Presence] in Serum or Plasma by Immunoassay Hepatitis B surface antigen Lab Routine Amenorrhea examination or test, positive result 8 weeks gestation of Ordered: 05/01/2024 [facility] Work Phone: Comment on above: Ordered: 05/01/2024 Hepatitis C virus Ab [Presence] in Serum or Plasma by Immunoassay Hepatitis C antibody Lab Routine Amenorrhea examination or test, positive result 8 weeks gestation of Ordered: 05/01/2024 [facility] Comment on above: Ordered: 05/01/2024 HIV-1/HIV-2 antigen/antibody combination immunoassay HIV-1 and HIV-2 antibodies Lab Routine Amenorrhea examination or test, positive result 8 weeks gestation of Ordered: 05/01/2024 [facility] Comment on above: Ordered: 05/01/2024 Reagin Ab [Presence] in Serum by RPR RPR Lab Routine Amenorrhea examination or test, positive result 8 weeks gestation of Ordered: 05/01/2024 [facility] Comment on above: Ordered: 05/01/2024 Rubella antibody, IgG Rubella an tibody, IgG Lab Routine Amenorrhea examination or test, positive result 8 weeks gestation of Ordered: 05/01/2024 [facility] Comment on above: Ordered: 05/01/2024 Immunizations Immunization Date Immunization Notes Care Provider [facility] 03-10-2021 meningococcal oligosaccharide (groups A, C, Y and W-135) diphtheria toxoid conjugate vaccine (MCV4O) Karma Timmons MD Work Phone: [facility] 03-23-2016 meningococcal oligosaccharide (groups A, C, Y and W-135) diphtheria toxoid conjugate vaccine (MCV4O) Karma Timmons MD Work Phone: [facility] 03-23-2016 tetanus toxoid, redu lu diphtheria toxoid, and acellular pertussis vaccine, adsorbed Karma Timmons MD Work Phone: [facility] 03-23-2016 varicella virus vaccine Karma Timmons MD Work Phone: [facility] 04-18-2009 diphtheria, tetanus toxoids and acellular pertussis vaccine Karma Timmons MD Work Phone: [facility] 03-23-2008 measles, mumps and r ubella virus vaccine Karma Timmons MD Work Phone: [facility] 03-23-2008 poliovirus vaccine, inactivated Karma Timmons MD Work Phone: [facility] 07-20-2005 diphtheria, tetanus toxoids and acellular pertussis vaccine Karma Timmons MD Work Phone: [facility] 07-20-2005 measles, mumps and r ubella virus vaccine Karma Timmons MD Work Phone: [facility] 07-20-2005 poliovirus vaccine, inactivated Karma Timmons MD Work Phone: [facility] 07-03-2004 pneumococcal conjuga te vaccine, 7 valent Karma Timmons MD Work Phone: [facility] 07-03-2004 varicella virus vaccine Karma Timmons MD Work Phone: [facility] 02-15-2004 diphtheria, tetanus toxoids and acellular pertussis vaccine Karma Timmons MD Work Phone: [facility] 02-15-2004 pneumococcal conjuga te vaccine, 7 valent Karma Timmons MD Work Phone: [facility] 2003 DTaP-hepatitis B and poliovirus vaccine Karma Timmons MD Work Phone: [facility] 2003 pneumococcal conjuga te vaccine, 7 valent Karma Timmons MD Work Phone: [facility] 2003 DTaP-hepatitis B and poliovirus vaccine Karma Timmons MD Work Phone: [facility] 2003 pneumococcal conjuga te vaccine, 7 valent Karma Timmons MD Work Phone: [facility] 2003 hepatitis B vaccine, pediatric or pediatric/adolescent dosage Karma Timmons MD Work Phone: [facility] Payers Date Payer Category Payer Medicaid [employer] [place] [id number] 2022-Present [address] [place] [address] [id number] 2022 Private Health Insurance [id number] 2022 Medicaid [id number] 2022 Private Health Insurance [id number] 2003 Unknown [id number] [id number]. 1259 2003 Unknown [id number] 2.16.840.1.091946.3.579.2. 1259 2003 Unknown [id number] 2.16.840.1.739908.3.579.2. 125 2003 Unknown [id number] 2.16.840.1.783631.3.579.2. 125 2003 Unknown [id number] 2.16.840.1.404895.3.579.2. 1259 2003 Unknown [id number] 2.16.840.1.649731.3.579.2. 1259 2003 Unknown [id number] 2.16.840.1.195389.3.579.2. 125 2003 Unknown [id number] 2.16.840.1.937729.3.579.2. 1259 2003 Unknown [id number] 2.16.840.1.278867.3.579.2. 1259 2003 Unknown [id number] 2.16.840.1.138583.3.579.2. 1259 2003 Unknown [id number] 2.16.840.1.039206.3.579.2. 1259 2003 Unknown [id number] 2.16.840.1.656349.3.579.2. 1259 2003 Unknown [id number] 2.16.840.1.252050.3.579.2. 1259 2003 Unknown [id number] 2.16.840.1.165604.3.579.2. 1259 2003 Unknown [id number] 2.16.840.1.005669.3.579.2. 1259 2003 Unknown [id number] 2.16.840.1.359001.3.579.2. 1259 2003 Unknown [id number] 2.16.840.1.890192.3.579.2. 9 2003 Unknown [id number] 2.16.840.1.037704.3.579.2. 1259 2003 Unknown [id number] 2.16.840.1.737393.3.579.2. 1259 Social History Date Type Detail Facility Start: 03-18-2023 Tobacco smoking stat [facility] Never smoked tobacco [facility] Start: 03-18-2023 Tobacco use and exposure Smokeless t obacco non-user [facility] Start: 04-11-2024 End: 05-01-2024 Alcoholic beverage intake Lifetime non-drinker (finding) [facility] Start: 01-25-2024 End: 05-01-2024 History of Social function [facility] Start: 01-25-2024 End: 05-01-2024 Tobacco use panel [facility] Start: 02-17-2023 Alcohol Comment Caffeine: occasional pop [facility] Start: 03-20-2024 [facility] Start: 2003 Sex assigned at Not on file [facility] Clinical Notes 04-11-2024 to 12-05-2024 Tiago Kim CNM - 12/05/2024 4:30 PM EDTGULSHAN Lynn - 11/29/2024 4:30 PM EDGULSHAN Rodríguez - 11/22/2024 4:15 PM EDTGULSHAN Lynn - 11/15/2024 4:30 PM EDT Note Date & Type Note Facility 12-05-2024 History of Presen t illness Narrative Subjective No chief complaint on file. Nani Choi is a 19 y.o. at 39w1d with a working estimated date of delivery of 12/11/2024, by Last Menstrual Period who presents for a routine visit. She denies vaginal bleeding, leakage of fluid, decreased movements, or contractions. OB History Para Term AB Living 2 1 SAB IAB Ectopic Multiple Live Births 1 # Outcome Date GA Lbr Jonny/2nd Weight Sex Type Anes PTL Lv 2 Current 1 SAB 8w0d Her is complicated by: h/o miscarriage No problems today Objective Physical Exam Weight: 200 lb Expected Total Weight Gain: 15 lb-25 lb Pregravid BMI: 28.88 BP: 120/80 Urine protein Urine glucose- Assessment/Plan Diagnoses and all orders for this visit: Large for dates - US OB follow up transabdominal approach; Future Encounter for care of first , third trimester Continue vitamin. Labs reviewed. GBS taken. Expected mode of delivery Follow up in 1 week for a routine visit. documented in this encounter [facility] 11-29-2024 History of Presen t illness Narrative Subjective No chief complaint on file. Nani Choi is a 19 y.o. at 38w2d with a working estimated date of delivery of 12/11/2024, by Last Menstrual Period who presents for a routine visit. She denies vaginal bleeding, leakage of fluid, decreased movements, or contractions. OB History Para Term AB Living 2 1 SAB IAB Ectopic Multiple Live Births 1 # Outcome Date GA Lbr Jonny/2nd Weight Sex Type Anes PTL Lv 2 Current 1 SAB 8w0d Her is complicated by: Objective Physical Exam Weight: 200 lb Expected Total Weight Gain: 15 lb-25 lb Pregravid BMI: 28.88 BP: 120/70 Urine protein-negative Urine glucose-negative Assessment/Plan Continue vitamin. Labs reviewed. GBS taken. Expected mode of delivery Follow up in 1 week for a routine visit. documented in this encounter [facility] 11-22-2024 History of Presen t illness Narrative Subjective No chief complaint on file. Nani Choi is a 19 y.o. at 37w2d with a working estimated date of delivery of 12/11/2024, by Last Menstrual Period who presents for a routine visit. She denies vaginal bleeding, leakage of fluid, decreased movements, or contractions. OB History Para Term AB Living 2 1 SAB IAB Ectopic Multiple Live Births 1 # Outcome Date GA Lbr Jonny/2nd Weight Sex Type Anes PTL Lv 2 Current 1 SAB 8w0d Her is complicated by: Objective Physical Exam Weight: 194 lb Expected Total Weight Gain: 15 lb-25 lb Pregravid BMI: 28.88 BP: 120/80 Urine protein-negative Urine glucose-negative Assessment/Plan Continue vitamin. Labs reviewed. GBS taken. Expected mode of delivery Follow up in 1 week for a routine visit. documented in this encounter [facility] 11-15-2024 History of Presen t illness Narrative Subjective No chief complaint on file. Nani Choi is a 19 y.o. at 36w2d with a working estimated date of delivery of 12/11/2024, by Last Menstrual Period who presents for a routine visit. She denies vaginal bleeding, leakage of fluid, decreased movements, or contractions. OB History Para Term AB Living 2 1 SAB IAB Ectopic Multiple Live Births 1 # Outcome Date GA Lbr Jonny/2nd Weight Sex Type Anes PTL Lv 2 Current 1 SAB 8w0d Her is complicated by: Objective Physical Exam weight: 195 lb Expected Total Weight Gain: 15 lb-25 lb Pregravid BMI: 28.88 BP: 120/80 Urine protein-negative Urine glucose-negative Assessment/Plan Diagnoses and all orders for this visit: Encounter for care of first , third trimester screening for streptococcus B - STREPTOCCOUS, GROUP B CULTURE; Future Continue vitamin. Labs reviewed. GBS taken today Expected mode of delivery Follow up in 1 week for a routine visit. documented in this encounter [facility] 11-08-2024 History of Presen t illness Narrative Subjective No chief complaint on file. Nani Choi is a 19 y.o. at 35w2d with a working estimated date of delivery of 12/11/2024, by Last Menstrual Period who presents for a routine visit. She denies vaginal bleeding, leakage of fluid, decreased movements, or contractions. OB History Para Term AB Living 2 1 SAB IAB Ectopic Multiple Live Births 1 # Outcome Date GA Lbr Jonny/2nd Weight Sex Type Anes PTL Lv 2 Current 1 SAB 8w0d Her is complicated by: back pain Objective Physical Exam weight: 194 lb Expected Total Weight Gain: 15 lb-25 lb Pregravid BMI: 28.88 BP: 110/72 Urine protein Urine glucose Assessment/Plan Patient has back pain, and states when she is at work she gets these sharp shooting pain up her whole back and it lasts for a couple minutes and then goes away. 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 I also demonstrated some stretches for her to try. Also recommended tylenol for discomfort, warm heating pad to her lower back, abdominal binder, warm shower or bath, massage and may need PT referral. PVU Note given for her work to eliminate the lifting, pushing and operating the palette derek. Continue vitamin. Labs reviewed. GBS taken. Expected mode of delivery Follow up in 1 week for a routine visit. documented in this encounter [facility] 10-23-2024 History of Presen t illness Narrative Subjective No chief complaint on file. Nani Choi is a 19 y.o. at 33w0d with a working estimated date of delivery of 12/11/2024, by Last Menstrual Period who presents for a routine visit. She denies vaginal bleeding, leakage of fluid, decreased movements, or contractions. OB History Para Term AB Living 2 1 SAB IAB Ectopic Multiple Live Births 1 # Outcome Date GA Lbr Jonny/2nd Weight Sex Type Anes PTL Lv 2 Current 1 SAB 8w0d Her is complicated by: Objective Physical Exam weight: 189 lb Expected Total Weight Gain: 15 lb-25 lb Pregravid BMI: 28.88 BP: 118/80 Urine protein-negative Urine glucose-negative Assessment/Plan Continue vitamin. Labs reviewed. GBS taken. Expected mode of delivery Follow up in 1 week for a routine visit. documented in this encounter [facility] 08-29-2024 History of Presen t illness Narrative Subjective No chief complaint on file. Nani Choi is a 19 y.o. at 25w1d with a working estimated date of delivery of 12/11/2024, by Last Menstrual Period who presents for a routine visit. She denies vaginal bleeding, leakage of fluid, decreased movements, or contractions. OB History Para Term AB Living 2 1 SAB IAB Ectopic Multiple Live Births 1 # Outcome Date GA Lbr Jonny/2nd Weight Sex Type Anes PTL Lv 2 Current 1 SAB 8w0d Her is complicated by: The following portions of the chart were reviewed this encounter and updated as appropriate: Objective Physical Exam weight: 174 lb Expected Total Weight Gain: 15 lb-25 lb Pregravid BMI: 28.88 BP: 120/70 Urine protein Urine glucose Labs: reviewed Imaging Assessment/Plan Diagnoses and all orders for this visit: Anxiety, generalized ([facility]) Encounter for supervision of other normal , second trimester Continue vitamin. Labs reviewed. Rhogam GTT at 28 weeks Follow up in 2 weeks for a routine visit. documented in this encounter [facility] 08-15-2024 Telephone encount er Note 10% co pay with unlimited visits after deductible is met Deductible is 1000/2000 and 0 is met Out of pocket 2500/5000 and 0 is met Pt will callback to schedule [facility] 08-15-2024 Miscellaneous Notes Formattin g of this note might be different from the original. 10% co pay with unlimited visits after deductible is met Deductible is 1000/2000 and 0 is met Out of pocket 2500/5000 and 0 is met Pt will callback to schedule documented in this encounter [facility] 07-31-2024 History of Presen t illness Narrative Subjective No chief complaint on file. Nani Choi is a 19 y.o. at 21w0d with a working estimated date of delivery of 12/11/2024, by Last Menstrual Period who presents for a routine visit. She denies vaginal bleeding, leakage of fluid, decreased movements, or contractions. OB History Para Term AB Living 2 1 SAB IAB Ectopic Multiple Live Births 1 # Outcome Date GA Lbr Jonny/2nd Weight Sex Type Anes PTL Lv 2 Current 1 SAB 8w0d Her is complicated by: anxiety, depression and ADHD depression The following portions of the chart were reviewed this encounter and updated as a] Objective Physical Exam weight: 171 lb Expected Total Weight Gain: 15 lb-25 lb Pregravid BMI: 28.88 BP: 120/80 Urine protein Urine glucose Labs: reviewed Imaging Assessment/Plan Continue vitamin. Labs reviewed. Rhogam GTT . Follow up in 2 weeks for a routine visit. documented in this encounter [facility] 07-28-2024 Telephone encount er Note [facility] called - a fax that was sent today didn't go over correctly - it needs re-sent . I didn't see anything recent or any notes as to what it was or I would have . Ty [facility] 07-28-2024 Miscellaneous Notes Formattin g of this note might be different from the original. [facility] called - a fax that was sent today didn't go over correctly - it needs re-sent . I didn't see anything recent or any notes as to what it was or I would have . Ty documented in this encounter [facility] 05-29-2024 History of Presen t illness Narrative Subjective No chief complaint on file. Nani Choi is a 19 y.o. at 12w0d with a working estimated date of delivery of 12/11/2024, by Last Menstrual Period who presents for a routine visit. She denies vaginal bleeding, leakage of fluid, decreased movements, and contractions. OB History Para Term AB Living 2 1 SAB IAB Ectopic Multiple Live Births 1 # Outcome Date GA Lbr Jonny/2nd Weight Sex Type Anes PTL Lv 2 Current 1 SAB 8w0d Her is complicated by history of loss The following portions of the chart were reviewed this encounter and updated as appropriate: Objective Physical Exam weight: 161 lb, Pregravid BMI: 28.88 Expected Total Weight Gain: 15 lb-25 lb BP: 112/70 Labs Imaging Assessment/Plan Diagnoses and all orders for this visit: examination or test, positive result - Ambulatory referral to Obstetrics / Gynecoologists Urine protein Urine glucose Continue vitamin. Labs reviewed. Order placed for anatomy scan at 20 weeks. Follow up in 4 weeks for a routine visit. documented in this encounter [facility] 05-01-2024 History of Presen t illness Narrative Subjective Nani Choi is a 18 y.o. at 8w0d with a working estimated date of delivery of 12/11/2024, by Last Menstrual Period who presents for an initial visit. This is planned. Patient Care Team: Karma Timmons MD as PCP - General (Family Medicine) OB History Para Term AB Living 2 1 SAB IAB Ectopic Multiple Live Births 1 # Outcome Date GA Lbr Jonny/2nd Weight Sex Type Anes PTL Lv 2 Current 1 SAB 8w0d Her is complicated by: Patient referred by Gynecology History Last Pap n/a The following portions of the chart were reviewed this encounter and updated as appropriate: Review of Systems Objective Physical Exam weight: 163 lb Expected Total Weight Gain: 15 lb-25 lb Pregravid BMI: 28.88 Urine protein Urine glucose Labs Assessment/Plan Diagnoses and all orders for this visit: Amenorrhea - Hepatitis B surface antigen - Rubella antibody, IgG - CBC - Antibody screen - RPR - Hemoglobin A1c - TSH W/REFLEX TO FT4; Future - HIV-1 and HIV-2 antibodies - ABO/Rh - DRUG TOX MONITORIGN 6 W/ CONF,URINE; Future - Hepatitis C antibody - Urine culture; Future - URINALYSIS MICROSCOPIC; Future - C. trachomatis / N. gonorrhoeae, DNA probe; Future examination or test, positive result - Hepatitis B surface antigen - Rubella antibody, IgG - CBC - Antibody screen - RPR - Hemoglobin A1c - TSH W/REFLEX TO FT4; Future - HIV-1 and HIV-2 antibodies - ABO/Rh - DRUG TOX MONITORIGN 6 W/ CONF,URINE; Future - Hepatitis C antibody - Urine culture; Future - URINALYSIS MICROSCOPIC; Future - C. trachomatis / N. gonorrhoeae, DNA probe; Future - Ambulatory referral to Obstetrics / Gynecology; Future 8 weeks gestation of - Hepatitis B surface antigen - Rubella antibody, IgG - CBC - Antibody screen - RPR - Hemoglobin A1c - TSH W/REFLEX TO FT4; Future - HIV-1 and HIV-2 antibodies - ABO/Rh - DRUG TOX MONITORIGN 6 W/ CONF,URINE; Future - Hepatitis C antibody - Urine culture; Future - URINALYSIS MICROSCOPIC; Future - C. trachomatis / N. gonorrhoeae, DNA probe; Future - Ambulatory referral to Obstetrics / Gynecology; Future Blue education folder given. Patient educated on safe medication list. Genetic testing information given. Discussed the do's and don'ts in the blue folder. We discussed labs and what we draw and what we are testing for. Patient is also informed that we do a urine drug test. Patient also given office phone number and [facility] number to call in case of an emergency or after hours needs. PVU and all questions answered. We did discuss place of delivery. Patient should plan to go to [facility] for all services unless an emergency and they need to go to the closest ER. We can make other arrangements possibly if patient would like to deliver at another facility but I did explain I am now at [place] 100% of the time and would like to do all deliveries there. documented in this encounter [facility] 04-11-2024 History of Presen t illness Narrative Nani Choi is a 18 y.o. female presents with chief complaint of Hospital Follow-up (Patient presents today for ER follow up from [facility]. Patient was in ER on 04/06/24. Patient states that she went to the ER to make sure that she wasn't having an ectopic . Patient is currently 4 weeks . Patient was having pain in lower left abdomen.) HPI: HPI History of Present Illness The patient is a 18-year-old female who presents for evaluation of . She reports feeling well overall, with no current pain. She has not yet started taking vitamins. She denies experiencing any nausea. She was advised to monitor her hormone levels due to a previous visit to the hospital for pain, which raised concerns about a potential ectopic . She has an upcoming appointment with Dr. Cook on 05/01/2024. Flowsheet Row Office Visit from 04/11/2024 in [facility] with Karma Timmons MD Hospital Information Discharged To: Home Setting Discharge Hospital [facility] Discharge Date 04/06/24 Engagement Call Start Time 1056 Admission Date 04/06/24 Medications Appointments Does the patient have a primary care provider? Yes Has the patient kept scheduled appointments due by today? Yes Self Management Patient Teaching Does the patient have access to their discharge instructions? Yes What is the patient's perception of their health status since discharge? Improving Is the patient/caregiver able to teach back the hierarchy of who to call/visit for symptoms/problems? PCP, Specialist, Home Health nurse, Urgent Care, ED, 911 Yes Wrap Up Call End Time 1100 SUBJECTIVE: MEDICATIONS: Current Outpatient Medications Medication Instructions amitriptyline (ELAVIL) 25 mg, Oral, Nightly levonorgestrel-ethinyl estradiol (Aviane, Alesse, Lessina) 0.1-20 MG-MCG tablet 1 tablet, Oral, Daily ALLERGIES: Allergies Allergen Reactions [place] Extract SURGICAL HISTORY: Past Surgical History: Procedure Laterality Date DILATION AND CURETTAGE OF UTERUS 03/05/2023 FAMILY HISTORY: Family History Problem Relation Name Age of Onset Heart disease Maternal Grandparent Diabetes Maternal Grandparent SOCIAL HISTORY: Social History Tobacco Use Smoking status: Never Smokeless tobacco: Never Vaping Use Vaping status: Never Used Substance Use Topics Alcohol use: Never Comment: Caffeine: occasional pop Drug use: Never Depression: Not at risk (01/25/2024) PHQ-2 PHQ-2 Score: 0 REVIEW OF SYMPTOMS: Review of Systems OBJECTIVE: Visit Vitals BP 122/70 (BP Location: Left arm, Patient Position: Sitting, BP Cuff Size: Adult) Pulse 88 Resp 18 Ht 5' 3 Wt 163 lb SpO2 100% BMI 28.87 kg/m OB Status Having periods Smoking Status Never BSA 1.81 m Physical Exam Constitutional: Appearance: Normal appearance. She is normal weight. Musculoskeletal: Cervical back: Normal range of motion and neck supple. Skin: General: Skin is warm and dry. Neurological: General: No focal deficit present. Mental Status: She is alert and oriented to person, place, and time. Mental status is at baseline. Psychiatric: Mood and Affect: Mood normal. Behavior: Behavior normal. Thought Content: Thought content normal. Judgment: Judgment normal. ASSESSMENT AND PLAN: Assessment/Plan Problem List Items Addressed This Visit None Visit Diagnoses Threatened in early - Primary Relevant Orders HCG, quantitative, Start pnv, pending ob visit in 3 weeks documented in this encounter [facility] Evaluation note Diagnosis 12 weeks gestation of - Primary examination or test, positive result [facility] Diagnosis Threatened in early - Primary [facility] Diagnosis Amenorrhea Absence of menstruation examination or test, positive result 8 weeks gestation of documented in [facility]* Diagnosis Anxiety, generalized (CMS/HCC)- Primary Encounter for supervision of other normal , second trimester documented [facility]* Diagnosis Anxiety, generalized (CMS/HCC)- Primary Encounter for supervision of other normal , second trimester documented [facility]* Diagnosis Encounter for care of first , third trimester- Primary [facility]* Diagnosis Encounter for care of first , third trimester- Primary screening for streptococcus B screening for Streptococcus B documented [facility]* Diagnosis Encounter for care of first , third trimester- Primary documented [facility]* Diagnosis Encounter for care of first , third trimester- Primary documented [facility]* Diagnosis Large for dates- Primary Encounter for care of first , third trimester [facility]* Maternity Services (Routine) - Closed Specialty Diagnoses / Procedures Referred By Elly suazo Referred To Contact Obstetrics and Gynecology Diagnoses examination or test, positive result 8 weeks gestation of Procedures [place] OFFICE/OUTPATIENT NEW HIGH MDM 60 MINUTES Tiago Kim, CNM [address] [place] [address] Phone: tel: fax: Tiago Kim, CNM [address] [place] [address] Phone: tel: fax: Referral ID Status Reason Start Date Expiration Date V isits Requested Visits Authorized [id number] Closed Specialty Services Required 05/01/2024 10/28/2024 1 1 [facility] Reason for Referral Specialty Diagnoses / Procedures Referred By Elly suazo Referred To Contact Obstetrics and Gynecology Diagnoses examination or test, positive result 8 weeks gestation of Procedures [place] OFFICE/OUTPATIENT NEW HIGH MDM 60 MINUTES Tiago Kim, CNM [address] [place] [address] Tiago Kim, CNM [address] [place] [address] Referral ID Status Reason Start Date Expiration Date Visits Requested Visits Authorized [id number] Pending Review Specialty Services Required 05/01/2024 10/28/2024 1 1 Summary Purpose Family History No Family History Records Found Advance Directives No Advanced Directives Records Found Additional Source Comments Care Teams (unrecognized sec tion and content) Cat Wagon Operator Relationship Specialty Start Date End Date Karma Timmons MD [address] [facility] [place] [address] PCP - General Family Medicine 02/18/23 Cat Wagon Operator Relationship Specialty Start Date End Date Karma Timmons MD [address] [place] [address] PCP - General Family Medicine 02/18/23 Cat Wagon Operator Relationship Specialty Start Date End Date Karma Timmons MD [address] [place] [address] PCP - General Family Medicine 02/18/23 Cat Wagon Operator Relationship Specialty Start Date End Date Karma Timmons MD [address] [place] [address] PCP - General Family Medicine 02/18/23 Cat Wagon Operator Relationship Specialty Start Date End Date Karma Timmons MD [address] [facility] [place] [address] PCP - General Family Medicine 02/18/23 Cat Wagon Operator Relationship Specialty Start Date End Date Karma Timmons MD [address] [place] [address] PCP - General Family Medicine 02/18/23 Cat Wagon Operator Relationship Specialty Start Date End Date Karma Timmons MD [address] [facility] [place] [address] PCP - General Family Medicine 02/18/23 Cat Wagon Operator Relationship Specialty Start Date End Date Karma Timmons MD [address] [place] [address] PCP - General Family Medicine 02/18/23 Cat Wagon Operator Relationship Specialty Start Date End Date Karma Timmons MD [address] [place] [address] PCP - General Family Medicine 02/18/23 Cat Wagon Operator Relationship Specialty Start Date End Date Karma Timmons MD [address] [facility] [place] [address] PCP - General Family Medicine 02/18/23 Cat Wagon Operator Relationship Specialty Start Date End Date Karma Timmons MD [address] [facility] [place] [address] PCP - General Family Medicine 02/18/23 Cat Wagon Operator Relationship Specialty Start Date End Date Karma Timmons MD [address] [place] [address] PCP - General Family Medicine 02/18/23 Reason for Visit (unrecogniz ed section and content) Reason Comments Hospital Follow-up Patient [facility] ER follow up from [facility]. Patient was in ER on 04/06/24. Patient states that she went to the ER to make sure that she wasn't having an ectopic . Patient is currently 4 weeks . Patient was having pain in lower left abdomen. Reason Comments Initial Visit INFORMATION SOURCE (unrecogn ized section and content) DATE CREATED AUTHOR 12/12/2024 [facility] EPIC FOR RECORDS PERTAINING TO PATIENTS WHO ARE OR HAVE BEEN ENROLLED IN A CHEMICAL DEPENDENCY/SUBSTANCEABUSE PROGRAM, SOME INFORMATION MAY BE OMITTED. This clinical summary was aggregated from multiple sources. Caution should be exercised in using it in the provision of clinical care. This summary normalizes information from multiple sources, and as a consequence, information in this document may materially change the coding, format and clinical context of patient data. In addition, data may be omitted in some cases. CLINICAL DECISIONS SHOULD BE BASED ON THE PRIMARY CLINICAL RECORDS. [employer] [facility]. provides no warranty or guarantee of the accuracy or completeness of information in this document.
[2024-12-14 10:30] LABS: Bilirubin Urine NEGATIVE (NEGATIVE); Blood Urine NEGATIVE (NEGATIVE); Clarity Urine CLEAR (CLEAR); Color Urine LT. YELLOW (YELLOW); Glucose Urine UA NEGATIVE (NEGATIVE); Ketones Urine NEGATIVE (NEGATIVE); Leukocyte Esterase Urine NEGATIVE (NEGATIVE); Nitrite Urine NEGATIVE (NEGATIVE); Protein Urine NEGATIVE (NEG/TRACE); Specific Gravity Urine <=1.005 (1.005-1.025); Urobilinogen Urine 0.2 EU/dL (0.2-1.0)
[2024-12-14 10:32] LABS: Urine Microscopic Indicated NO
[2024-12-14 10:33] LABS: Amnisure POSITIVE (NEGATIVE); Internal Control Within Normal Limits
--- NOTE | 2024-12-14 12:01 | US_ITS ---
[address] [address] Patient Name: ABHILASH CHOI MRN: [id number] date: 2005 Sex: F Assigned Patient Location: [facility] Current Patient Location: [facility] Accession/Order Number: [id number] Exam Date: 12/14/2024 14:51 Report Date: 12/14/2024 14:52 At the request of: TIAGO BRIZUELA APRN CNM Procedure: US OB limited Limited obstetrical ultrasound HISTORY: Assessment of position prior to delivery The fetus is in cephalic presentation with longitudinal lie. The heart rate 148 bpm. US/US OB limited IMPRESSION: Cephalic presentation of fetus. Impression dictated by: Cody Joseph M.D. 12/14/2024 2:52 PM Dictation Location: [place] [address] Electronically authenticated by: [id number] Y Date: 12/14/2024 14:52
[2024-12-14] MEDS: LACTATED RINGER'S SOLUTION 1,000 ML 125 ML IV ×2 (12:03→19:38)
[2024-12-14 12:26] LABS: Hemoglobin 10.9 g/dL (12.0-16.0); Mean Corpuscular HGB Conc 32.1 g/dL (29.9-35.2); Mean Corpuscular Hemoglobin 25.3 pg (26.7-34.0); Mean Corpuscular Volume 78.9 fL (81.0-99.0); Mean Platelet Volume 10.7 fL (9.5-13.5); Platelet Count 306 10^3/uL (150-450); Red Blood Count 4.31 10^6/uL (4.20-5.40); Red Cell Distribution Width 15.4 % (11.0-15.0); White Blood Count 13.3 10^3/uL (4.0-11.0)
[2024-12-14] MEDS: OXYTOCIN/0.9 % SODIUM CHLORIDE 10 UNITS/500 ML PLAST..BAG 6 UNIT IV (12:29)
[2024-12-14 12:41] LABS: Amphetamine Screen Urine NEGATIVE (NEGATIVE); Barbiturates Screen Urine NEGATIVE (NEGATIVE); Benzodiazepines Screen Urine NEGATIVE (NEGATIVE); Buprenorphine Screen Urine NEGATIVE (NEGATIVE); Cannabinoid Screen Urine NEGATIVE (NEGATIVE); Cocaine Screen Urine NEGATIVE (NEGATIVE); Methadone Screen Urine NEGATIVE (NEGATIVE); Methamphetamines Screen Urine NEGATIVE (NEGATIVE); Opiate Screen Urine NEGATIVE (NEGATIVE); Oxycodone Screen Urine NEGATIVE (NEGATIVE); Phencyclidine Screen Urine NEGATIVE (NEGATIVE); Tricyclic Antidepressant Urine NEGATIVE (NEGATIVE)
[2024-12-14] MEDS: NALBUPHINE HCL 10 MG/ML AMPULE IV (16:02)
[2024-12-14] MEDS: NALBUPHINE HCL 10 MG/ML AMPULE 20 MG IM (18:03)
[2024-12-14] MEDS: OXYTOCIN/0.9 % SODIUM CHLORIDE 20 UNITS/1,000 ML PLAST..BAG 125 UNIT IV (21:18)
--- NOTE | 2024-12-14 22:00 | P.OBHP_ITS ---
OB - H&P: HPI History of Present Illness Chief complaint: RULE OUT RUPTURE OF MEMBRANES : 1 Para: 0 History of Present Dating criteria: LMP confirmed by 1st trimester US care: good care Ultrasounds: normal 1st trimester US and normal mid trimester US Medical complications OB: none Labs Blood type: A (+) positive Rubella: immune RPR/VDLR: nonreactive GBS status: negative HBsAG: negative PFSH PFSH Medical History (Updated 12/14/24 @ 22:09 by TIAGO BRIZUELA APRN, CNHossein) Missed ab ?O02.1 - Missed (ICD-10) Family History (Updated 03/03/23 @ 12:43 by Coco Willis RN) Other Family history of COPD (chronic obstructive pulmonary disease) Family history of diabetes mellitus Social History Within the past year, how often did you have a drink containing alcohol: never Score interpretation: A score less than 3 is consistent with normal alcohol consumption. Smoking status: Never smoker Non-prescribed substance use: denies use Previous occupational history: [employer] Known occupational exposures/hazards: No Highest level of school completed/degree received: high school graduate Little interest or pleasure in doing things: not at all Feeling down, depressed, or hopeless: not at all Feel stressed/tense/nervous/anxious/difficulty sleeping: not at all Meds Home Medications and Allergies Home Medications ?Medication ?Instructions ?Recorded ?Confirmed ?Type No Known Home Medications 04/06/24 09/0 12/23 History Allergies Allergy/AdvReac Type Severity Reaction Status Date / Time No Known Drug Allergies Allergy Verified 03/05/23 07:18 Exam Constitutional Vital Signs, click to edit/add: Last Vital Signs Temp 98 F 12/14/24 18:34 Pulse 76 12/14/24 20:21 Resp 22 H 12/14/24 18:34 BP 134/67 12/14/24 20:21 O2 Del Method Room Air 12/14/24 12:32 Documenting provider has reviewed patient's vital signs: yes Common normals: no apparent distress and oriented x3 General appearance: cooperative Orientation/consciousness: Yes awake, Yes oriented to person, Yes oriented to place and Yes oriented to time HENMT Common normals: normocephalic Eye Common normals: EOMs intact bilaterally General eye: normal appearance of both eyes Neck & C-Spine Common normals: full ROM General: normal visual inspection Lymph Lymphatic: no lymphadenopathy noted Chest Common normals: inspection of chest normal, palpation of chest normal, inspection of breasts normal and palpation of breasts normal Respiratory Common normals: normal respiratory effort, no retractions, no use of accessory muscles, clear to auscultation bilaterally and percussion normal Effort & inspection: able to speak in complete sentences Cardio Common normals: regular rate and regular rhythm Rate: regular rate Rhythm: regular rhythm GI Common normals: Normal to inspection, nondistended, normoactive bowel sounds present Inspection: normal to inspection Common normals: no CVA tenderness Back & Pelvis Common normals: no CVA tenderness Extremity Common normals: normal to inspection Neuro Common normals: oriented x3 Sensorium/orientation: awake, alert, oriented to person, oriented to place and oriented to time Psych Common normals: mental status grossly normal, thought process normal, cooperative, affect normal, speech normal, activity/motor behavior normal, denie s hallucinations, denies homicidal ideation and denies suicidal ideation Appearance: grossly normal Attitude: calm Activity/motor behavior: appropriate eye contact Speech: normal speech Results Labs Labs: Short CBC 12/14/24 Range/Units 11:45 WBC 13.3 H (4.0-11.0) 10^3/uL Hgb 10.9 L (12.0-16.0) g/dL Hct 34.0 L (36.0-48.0) % Plt Count 306 (150-450) 10^3/uL Urine 12/14/24 Range/Units 10:12 Urine Color Lt. yellow (YELLOW) Urine Clarity Clear (CLEAR) Urine pH 6.0 (5.0-9.0) Ur Specific [place] <=1.005 A (1.005-1.025) Urine Protein Negative (NEG/TRACE) mg/dL Urine Glucose (UA) Negative (NEGATIVE) mg/dL OB - A/P Assessment and Plan (1) Term : (2) Post-dates :
--- NOTE | 2024-12-14 22:09 | PM.OBPRCVD ---
Procedure Procedure: RIGHT MEDIAL LATERAL EPISIOTOMY Intrapartal events: None Induction method: none Delivery augmentation: pitocin Delivery monitor: external FHT and external uterine Route of delivery: Episiotomy Description: right mediolateral L&D Laceration Description: perineal - 2nd degree and labial (Left labial repair ) Delivery repair: Vicryl Estimated blood loss (mL): 100 Anesthesia type: Nubain Infant Delivery date: 12/14/24 Gender: female presentation: vertex Placental delivery description: Spontaneous cord description: 3 Vessels and Around Body x1 (loose, reduced with delivery ) heart rate - 1 minute: 100 bpm or Greater respiratory effort - 1 minute: Spontaneous/Strong Cry muscle tone - 1 minute: Active Movement reflex response - 1 minute: Minimal Response color - 1 minute: Bluish Hands or Feet total score - 1 minute: 8 heart rate - 5 minute: 100 bpm or Greater respiratory effort - 5 minute: Spontaneous/Strong Cry muscle tone - 5 minute: Active Movement reflex response - 5 minute: Prompt Response color - 5 minute: Bluish Hands or Feet total score - 5 minute: 9
[2024-12-14] MEDS: BENZOCAINE/MENTHOL 85 GRAM SPRAY BOTTLE 1 APPLIC TOPICAL (22:38)
[2024-12-14] MEDS: GLYCERIN/WITCH HAZEL PADS 1 PAD TOPICAL (22:39)
[2024-12-14] MEDS: IBUPROFEN 400 MG TABLET 800 MG PO (22:39)
[2024-12-14] MEDS: ACETAMINOPHEN 325 MG TABLET 650 MG PO (22:39)
[2024-12-14] MEDS: LIDOCAINE HCL 1% 200 MG/20 ML MDV INJ (23:24)
[2024-12-15 04:03] VITALS: BP 144/66; PULSE 71
[2024-12-15 04:04] VITALS: BP 126/63; PULSE 68; TEMP 36.8
[2024-12-15 06:43] LABS: Basophils Percent Auto 0.2 % (0.2-2.0); Eosinophils Percent Auto 0.2 % (0.9-7.0); Hematocrit 29.4 % (36.0-48.0); Hemoglobin 9.7 g/dL (12.0-16.0); Immature Granulocytes Pct Auto 0.6 % (0.0-0.5); Lymphocytes Absolute Auto 1.5 10^3/uL (1.2-3.8); Lymphocytes Percent Auto 8.9 % (20.5-60.0); Mean Corpuscular Hemoglobin 25.9 pg (26.7-34.0); Mean Corpuscular Volume 78.4 fL (81.0-99.0); Mean Platelet Volume 9.9 fL (9.5-13.5); Monocytes Percent Auto 5.9 % (1.7-12.0); Neutrophils Percent Auto 84.2 % (43.0-75.0); Platelet Count 299 10^3/uL (150-450); Red Blood Count 3.75 10^6/uL (4.20-5.40); Red Cell Distribution Width 15.5 % (11.0-15.0); White Blood Count 16.6 10^3/uL (4.0-11.0)
[2024-12-15] MEDS: IBUPROFEN 400 MG TABLET 800 MG PO ×2 (07:51→17:54)
[2024-12-15 07:53] VITALS: BP 129/68; PULSE 87; TEMP 36.7
--- NOTE | 2024-12-15 09:08 | P.OBPN_ITS ---
OB - PN: Subj Subjective Patient comments: no complaints, pain well controlled, tolerating diet and flatus present Grapevine feeding status: exclusively Exam Narrative Exam Narrative: Alert without any distress Constitutional Vital Signs, click to edit/add: Last Vital Signs Temp 98.1 F 12/15/24 07:53 Pulse 87 12/15/24 07:53 Resp 14 12/15/24 07:53 BP 129/68 12/15/24 07:53 O2 Del Method Room Air 12/15/24 08:06 Documenting provider has reviewed patient's vital signs: yes Common normals: no apparent distress, average body habitus, oriented x3, no limitations, healthy appearing, alert and well nourished General appearance: cooperative, comfortable, well kempt, well developed and well hydrated Orientation/consciousness: Yes awake, Yes oriented to person, Yes oriented to place and Yes oriented to time GI Common normals: Normal to inspection, nondistended, normoactive bowel sounds present, soft to palpation and non-tender (Fundus firm and 1 fingerbreadth below the umbilicus) Back & Pelvis Pelvis: other (Mild lochia rubra) Extremity Common normals: normal to inspection, full ROM, no calf tenderness and no pedal edema Psych Common normals: mental status grossly normal, thought process normal, cooperative, affect normal, speech normal and activity/motor behavior normal Speech: normal speech Results Labs Labs: Short CBC 12/14/24 12/15/24 Range/Units 11:45 06:27 WBC 13.3 H 16.6 H (4.0-11.0) 10^3/uL Hgb 10.9 L 9.7 L (12.0-16.0) g/dL Hct 34.0 L 29.4 L (36.0-48.0) % Plt Count 306 299 (150-450) 10^3/uL Urine 12/14/24 Range/Units 10:12 Urine Color Lt. yellow (YELLOW) Urine Clarity Clear (CLEAR) Urine pH 6.0 (5.0-9.0) Ur Specific [place] <=1.005 A (1.005-1.025) Urine Protein Negative (NEG/TRACE) mg/dL Urine Glucose (UA) Negative (NEGATIVE) mg/dL OB - PN: A/P Assessment and Plan (1) Term : (2) Post-dates : Assessment and Plan: Patient is post #1 progressing well. Will continue supportive care. Qualifiers: Post-term type: 40-42 weeks gestation Qualified Code(s): O48.0 - Post-term Plan Patient is post #1 progressing well. Will continue supportive care Plan - Vaginal Delivery day: 1 Plan: routine care Time Spent with Patient Time: Total time spent is greater than 50% in coordination of care (as documented) at patient's floor/unit and/or counseling patient: Total time spent with greater than 50% in coordination of care (as documented) at patient's floor/unit and/or counseling patient: less than 15 minutes
[2024-12-15 17:54] VITALS: BP 131/80; PULSE 85
[2024-12-15 18:05] VITALS: TEMP 36.7
[2024-12-15] MEDS: DOCUSATE SODIUM 100 MG CAPSULE PO (21:59)
[2024-12-15] MEDS: FERROUS SULFATE 325 MG TABLET PO (22:02)
[2024-12-16 00:56] VITALS: BP 127/79; PULSE 93
[2024-12-16 00:57] VITALS: TEMP 36.6
[2024-12-16] MEDS: IBUPROFEN 400 MG TABLET 800 MG PO ×2 (01:01→09:15)
[2024-12-16] MEDS: FERROUS SULFATE 325 MG TABLET PO (09:15)
[2024-12-16] MEDS: DOCUSATE SODIUM 100 MG CAPSULE PO (09:15)
[2024-12-16 11:29] VITALS: BP 126/77; PULSE 90; TEMP 35.6
--- NOTE | 2024-12-16 13:09 | PM.OBDS ---
DS: Providers Provider Date of admission: 12/14/24 11:30 Primary care physician: LAURA CANALES Admitting clinician: Jayjay Che Attending physician on admission: Jayjay Che Attending physician on discharge: Jayjay Che Discharging clinician: Jayjay Che Anticipated date of discharge: 12/16/24 DS: Diagnosis Discharge Diagnosis (1) Term : (2) Post-dates : Assessment and plan: Patient is day #2 progressing well. Patient is for discharge to home today. Qualifiers: Post-term type: 40-42 weeks gestation Qualified Code(s): O48.0 - Post-term Plan Patient is day #2 progressing well. Patient is for discharge home today. OB - DS: Summary Hospital Course Hospital Course: Uneventful Time spent discussing smoking cessation with patient: 3 to 10 minutes Peripartum Data - Vaginal Delivery Episiotomy Description: right mediolateral Complications complications: none Infant Delivery method: spontaneous vaginal delivery Gender: female Discharge plan: home Status at Discharge Cognitive/behavioral status at discharge: Good Functional status at discharge: independent ambulation Overall status at discharge: patient is back to baseline Time Spent with Patient Time attestation: Total time spent providing and/or coordinating discharge services: Time spent: less than 30 minutes Exam Narrative Exam Narrative: Alert and oriented without any distress. Constitutional Vital Signs, click to edit/add: Last Vital Signs Temp 96.1 F L 12/16/24 11:29 Pulse 90 12/16/24 11:29 Resp 16 12/16/24 09:15 BP 126/77 12/16/24 11:29 O2 Del Method Room Air 12/16/24 09:15 Documenting provider has reviewed patient's vital signs: yes Common normals: no apparent distress, average body habitus, oriented x3, no limitations, healthy appearing, alert and well nourished General appearance: cooperative, comfortable, well kempt and well developed Orientation/consciousness: Yes awake, Yes oriented to person, Yes oriented to place and Yes oriented to time GI Common normals: Normal to inspection, nondistended, normoactive bowel sounds present, soft to palpation and non-tender (Fundus firm and 2 fingerbreadths below the umbilicus) Back & Pelvis Pelvis: other (Mild lochia rubra) Extremity Common normals: normal to inspection, full ROM, no calf tenderness and no pedal edema Psych Common normals: mental status grossly normal, thought process normal, cooperative, affect normal, speech normal and activity/motor behavior normal Appearance: grossly normal and well kempt Attitude: calm and engaged Activity/motor behavior: appropriate eye contact Speech: normal speech Discharge Plan Discharge Disposition: Home, Self-Care Condition: Good Assessment: Patient is day #2 progressing well. Health Concerns: None Plan of Treatment: Patient for discharge to home today. Patient to schedule 6 weeks visit. Discharge Medications: New acetaminophen 325 mg Tablet 650 mg PO Q6H PRN (Reason: Mild Pain) 28 Days Qty: 120 0RF Dermoplast (with menthol) 20-0.5 % Aerosol 1 spray topical Q2H PRN (Reason: Pain) 28 Days Qty: 1 0RF ferrous sulfate 325 mg (65 mg iron) Tablet 325 mg PO BID 28 Days Qty: 56 3RF ibuprofen 400 mg Tablet 800 mg PO Q8H 28 Days Qty: 168 1RF docusate sodium 100 mg Capsule 100 mg PO BID 28 Days Qty: 56 3RF lidocaine HCl 2 % Solution 5 ml topical ONCE PRN (Reason: Pain) 28 Days Qty: 1 3RF simethicone [Gas Relief 80 (simethicone)] 80 mg Tablet,Chewable 80 mg PO QID PRN (Reason: Abdominal Distention) 28 Days Qty: 90 1RF [employer]. Witch Kayla 12.5-50 % Pads, Medicated 1 pad topical Q2H PRN (Reason: Pain) 28 Days Qty: 90 2RF Activity: resume usual activities as tolerated Diet: regular diet Print Language: Romansh Patient Instructions: Postterm (DC) Forms: Portal Instructions Follow Up Appointments: December 28 @ 1130am with Marilyn Kim via teleJAZIO
== END 2024-12-16 14:15 | disposition home or self-care (01) | DRG 807 ==
PROVIDERS: Admitting Provider Midwife; Family Provider Family Medicine; PCP Family Medicine; Visit Provider Midwife
DX: O48.0 Post-term pregnancy (principal); Z37.0 Single live birth; O70.1 Second degree perineal laceration during delivery; Z3A.40 40 weeks gestation of pregnancy; Z23 Encounter for immunization
CPT/HCPCS: 36415; 51701; 59050; 59410; 76815; 80307; 81003; 84112; 85025; 85027; 86850; 86900; 86901; J2300

== ENCOUNTER 2025-04-03 14:31 | Emergency (ER) | payer OTHER, SELFPAY ==
[2025-04-03] VITALS (9 sets, daily range): BP systolic 121–151; BP diastolic 74–83; PULSE 87–113; TEMP 36.7; O2SAT 95–100; BMI 31.9
--- OUTSIDE RECORDS SUMMARY | 2025-04-03 14:36 | XMS_ITS | Clinical Summary ---
Author Organization [facility] Healthcare Address [address] [place] [address] Care Team Providers Care Detail Drafter Name Role Phone Karma Timmons MD Primary Care Provider [phone] Allergies Active Allergy Reactions Criticality Noted Date Comments Clifton Extract 10/15/2020 Medications docusate sodium (Colace) 100 MG capsule Take 100 mg by mouth in the morning and 100 mg before bedtime. Active ferrous sulfate 325 (65 Fe) MG tablet Take 325 mg by mouth in the morning. Take with meals. Active norethindrone (Micronor) 0.35 MG tabletIndicatio ns:Unwanted fertility Take 1 tablet (0.35 mg) by mouth Daily 90 tablet 3 01/23/2025 5 Active Active Problems Problem Noted Date Diagnosed Date Anxiety 12/21/2023 Chronic cluster headache, not intractable 2023 Menorrhagia with regular cycle 12/21/2023 Migraine without aura and wi thout status migrainosus, not intractable 12/21/2023 Tachycardia 12/21/2023 PTSD (post-traumatic stress disorder) 03/29/2023 Encounters Date Type Department Care Team Description 01/23/2025 2:00 PM EDT Visit [facility] [address] [place] [address] Adrianna Kim CNM Unwanted fertility (Primary Dx); care following vaginal delivery ([facility]) 01/02/2025 Refill [facility] [address] [place] [id number] Terri Jo MA Enterococcus faecalis infection from Last 3 Months Immunizations Immunization Administration Dates Next Due DTaP 04/18/2009,07/20/2005,02/15/2004 DTaP / Hep B / IPV 2003,2003 Hep B, Adolescent or Pediatric 2003 IPV 03/23/2008,07/20/2005 MMR 03/23/2008,07/20/2005 Meningococcal MCV4O 03/10/2021,03/23/2016 Pneumococcal Conjugate PCV 7 07/03/2004,02/15/20 04,2003,2003 Tdap 03/23/2016 Varicella 03/23/2016,07/03/2004 Family History Medical History Relation Name Comments Diabetes Maternal Grandparent Heart disease Maternal Grandparent Relation Name Status Comments Brother 1 Alive Brother 2 Alive Father Alive Maternal Grandparent Mother Alive Sister 1 Alive Sister 2 Alive Sister 3 Alive Social History Tobacco Use Types Packs/Day Years Used Date Smoking Tobacco: Never Smokeless Tobacco: Never Tobacco Cessation:Counseling Given: Not Answered Alcohol Use Standard Drinks/Week Comments Never 0 (1 standard drink = 0.6 oz pur e alcohol) Caffeine: occasional pop PHQ-2 Answer Date Recorded Patient Health Questionnaire-2 Score 0 12/18/2024 Comments No Sex and Gender Information Value Date Recorded Sex Assigned at Not on file Legal Sex Female 7:05 PM EDT Gender Identity Not on file Sexual Orientation Not on file Last Filed Vital Signs Vital Sign Reading Time Taken Comments Blood Pressure 120/80 01/23/2025 2:07 PM EDT Pulse 88 04/11/2024 10:56 AM EDT Temperature - - Respiratory Rate 18 04/11/2024 10:56 AM EDT Oxygen Saturation 100% 04/11/2024 10:56 AM EDT Inhaled Oxygen Concentration - - Weight 79.8 kg (176 lb) 01/23/2025 2:07 PM EDT Height 160 cm (5' 3 ) 04/11/2024 10:56 AM EDT Body Mass Index 31.18 04/11/2024 10:56 AM EDT Plan of Treatment Upcoming Encounters Date Type Department Care Team (Late st Contact Info) Description 05/01/2025 2:00 PM EDT Office Visit [facility] [address] [place] [address] Adrianna Kim CNM [address] [place] [address] Health Maintenance Due Date Last Done Comments Influenza Vaccine (#1) [address] [facility] Care Teams Detail Drafter Relationship Specialty Start Date End Date Karma Timmons MD [address] [place] [address] PCP - General Family Medicine 02/18/23
--- OUTSIDE RECORDS SUMMARY | 2025-04-03 14:36 | XMS_ITS | Encounter Summary ---
Author Organization [facility] Healthcare Address [address] [place] [address] Care Team Providers Care Machining Department Supervisor Name Role Phone Karma Timmons MD Primary Care Provider [phone] Encounter Details Date Type Department Care Team (Late Contact Info) Description 12/26/2024 Results Follow-Up [facility] [address] [place] [address] Adrianna Kim CN [address] [place], [place] [id number] POCT Urinalysis dipstick, Urine culture Social History Tobacco Use Types Packs/Day Years Used Date Smoking Tobacco: Never Smokeless Tobacco: Never Alcohol Use Standard Drinks/Week Comments Never 0 (1 standard drink = 0.6 oz pur e alcohol) Caffeine: occasional pop PHQ-2 Answer Date Recorded Patient Health Questionnaire-2 Score 0 12/18/2024 Comments No Sex and Gender Information Value Date Recorded Sex Assigned at Not on file Legal Sex Female 7:05 PM EDT Gender Identity Not on file Sexual Orientation Not on file documented as of this encounter Plan of Treatment Upcoming Encounters Date Type Department Care Team (Late Contact Info) Description 05/01/2025 2:00 PM EDT Office Visit [facility] [address] [place] [address] Adrianna Kim CNM [address] [place], [place] [id number] documented as of this encounter Visit Diagnoses Not on filedocumented in this encounter Additional Health Concerns Assessment Noted Time PHQ-9 Depression Total Score: 14 024 10:00 AM EDT documented as of this encounter Care Teams Machining Department Supervisor Relationship Specialty Start Date End Date Karma Timmons MD [address] [place] [address] PCP - General Family Medicine 02/18/23 documented as of this encounter
--- OUTSIDE RECORDS SUMMARY | 2025-04-03 14:37 | XMS_ITS | Encounter Summary ---
Author Organization [facility] Healthcare Address [address] [place] [address] Care Team Providers Care Harmonica Maker Name Role Phone Karma Timmons MD Primary Care Provider [phone] Encounter Details Date Type Department Care Team (Latest Contact Info) Description 12/11/2024 Results Follow-Up [facility] [address] [place] [address] Adrianna Kim CN [address] [place], [place] [id number] OB follow up transabdominal approach Social History Tobacco Use Types Packs/Day Years Used Date Smoking Tobacco: Never Smokeless Tobacco: Never Alcohol Use Standard Drinks/Week Comments Never 0 (1 standard drink = 0.6 oz pur e alcohol) Caffeine: occasional pop PHQ-2 Answer Date Recorded Patient Health Questionnaire-2 Score 0 01/25/2024 Comments Yes Sex and Gender Information Value Date Recorded Sex Assigned at Not on file Legal Sex Female 7:05 PM EDT Gender Identity Not on file Sexual Orientation Not on file documented as of this encounter Plan of Treatment Upcoming Encounters Date Type Department Care Team (Late st Contact Info) Description 05/01/2025 2:00 PM EDT Office Visit [facility] [address] [place] [address] Adrianna Kim CNM [address] [place], [place] [phone] documented as of this encounter Visit Diagnoses Not on filedocumented in this encounter Additional Health Concerns Assessment Noted Time PHQ-9 Depression Total Score: 14 024 10:00 AM EDT documented as of this encounter Care Teams Harmonica Maker Relationship Specialty Start Date End Date Karma Timmons MD [address] [place] [address] PCP - General Family Medicine 02/18/23 documented as of this encounter
--- OUTSIDE RECORDS SUMMARY | 2025-04-03 14:37 | XMS_ITS | Encounter Summary ---
Author Organization [facility] Healthcare Address [address] [place] [address] Care Team Providers Care Facility Service Manager Name Role Phone Karma Timmons MD Primary Care Provider [phone] Encounter Details Date Type Department Care Team ([facility] Contact Info) Description 03/05/2023 Abstract [facility] [address] [place] [address] Karma Timmons MD [address] [place], [place] [id number] Social History Tobacco Use Types Packs/Day Years Used Date Smoking Tobacco: Never Alcohol Use Standard Drinks/Week Comments Never 0 (1 standard drink = 0.6 oz pur e alcohol) Caffeine: occasional pop Comments Unknown Sex and Gender Information Value Date Recorded Sex Assigned at Not on file Legal Sex Female 7:05 PM EDT Gender Identity Not on file Sexual Orientation Not on file documented as of this encounter Plan of Treatment Upcoming Encounters Date Type Department Care Team ([facility] Contact Info) Description 05/01/2025 2:00 PM EDT Office Visit [facility] [address] [place] [address] Adrianna Kim CNM [address] [place] [address] documented as of this encounter Visit Diagnoses Not on filedocumented in this encounter Care Teams Facility Service Manager Relationship Specialty Start Date End Date Karma Timmons MD [facility] [place] [address] PCP - General Family Medicine 02/18/23 documented as of this encounter
--- OUTSIDE RECORDS SUMMARY | 2025-04-03 14:37 | XMS_ITS | Encounter Summary ---
Author Organization [facility] Healthcare Address [address] [place] [address] Care Team Providers Care Naphthalene Still Operator Name Role Phone Karma Timmons MD Primary Care Provider [phone] Encounter Details Date Type Department Care Team (Late Contact Info) Description 12/14/2024 Results Follow-Up [facility] FELIC[facility] [address] [place] [address] Adrianna Kim CNM [address] [place], [place] [phone] [facility] (CLEAN/CATCH) CLINICAL DATA PROGRAMMER/MICRO IF IND. Social History Tobacco Use Types Packs/Day Years Used Date Smoking Tobacco: Never Smokeless Tobacco: Never Alcohol Use Standard Drinks/Week Comments Never 0 (1 standard drink = 0.6 oz pur e alcohol) Caffeine: occasional pop PHQ-2 Answer Date Recorded Patient Health Questionnaire-2 Score 0 12/18/2024 Comments Yes Sex and Gender Information Value Date Recorded Sex Assigned at Not on file Legal Sex Female 7:05 PM EDT Gender Identity Not on file Sexual Orientation Not on file documented as of this encounter Plan of Treatment Upcoming Encounters Date Type Department Care Team (Late Contact Info) Description 05/01/2025 2:00 PM EDT Office Visit [facility] [address] [place] [address] Adrianna Kim CNM [address] [place], [place] [phone] documented as of this encounter Visit Diagnoses Not on filedocumented in this encounter Additional Health Concerns Assessment Noted Time PHQ-9 Depression Total Score: 14 024 10:00 AM EDT documented as of this encounter Care Teams Naphthalene Still Operator Relationship Specialty Start Date End Date Karma Timmons MD [address] [place] [address] PCP - General Family Medicine 02/18/23 documented as of this encounter
--- OUTSIDE RECORDS SUMMARY | 2025-04-03 14:37 | XMS_ITS | Clinical Summary ---
Author Organization [employer] [facility] Address [id number] [place] [address] Care Team Providers Care Veneer Joiner Name Role Phone Nevaeh Ruiz DESKTOP SUPPORT MANAGER-RAILROAD CAR CLEANER Primary Care Provider [phone] Allergies Active Allergy Reactions Criticality Noted Date Comments [place] 10/15/2020 Medications acetaminophen (TylenoL) 325 mg tablet Take 2 tablets (650 mg total) by mouth every 6 (six) hours as needed for pain. 30 tablet 10/18/2021 Active ibuprofen (ADVIL,MOTRIN) 600 mg tablet Take 1 tablet (600 mg total) by mouth every 6 (six) hours as needed for pain. 30 tablet 10/18/2021 Active Social History Tobacco Use Types Packs/Day Years Used Date Smoking Tobacco: Never Assessed Childcare Answer Date Recorded Childcare Unknown 10/14/2020 Employment Answer Date Recorded Employment Unknown 10/14/2020 Purpose - Life Answer Date Recorded Purpose and direction in life Unknown Comments No Sex and Gender Information Value Date Recorded Sex Assigned at Not on file Legal Sex Female 12:01 PM EDT Gender Identity Not on file Sexual Orientation Not on file Last Filed Vital Signs Vital Sign Reading Time Taken Comments Blood Pressure 121/81 10/18/2021 1:57 PM EDT Pulse 95 10/18/2021 1:46 PM EDT Temperature 36.6 C (97.8 F) 10/18/2021 1:46 PM EDT Respiratory Rate 16 10/18/2021 1:46 PM EDT Oxygen Saturation 100% 10/18/2021 1:46 PM EDT Inhaled Oxygen Concentration - - Weight 63.5 kg (140 lb) 10/18/2021 1:46 PM EDT Height 160 cm (5' 3 ) 10/18/2021 1:46 PM EDT Body Mass Index 24.8 10/18/2021 1:46 PM EDT Plan of Treatment Health Maintenance Due Date Last Done Comments Depression Screening 2015 Tobacco Screening 2015 Adult BMI Screening 2021 Pap Smear 2024 Influenza Vaccine 04/02/2025 DTaP,Tdap and Td Vaccines (7 - Td or Tdap) 03/23/2026 03/23/2016, 04/18/2009, 07/20/2005, Additional history exists Medical Devices Not on file Insurance [employer] Care Teams Veneer Joiner Relationship Specialty Start Date End Date Nevaeh Ruiz, DESKTOP SUPPORT MANAGER-RAILROAD CAR CLEANER PCP - General Nurse Practitioner 10/15/20
--- OUTSIDE RECORDS SUMMARY | 2025-04-03 14:37 | XMS_ITS | Encounter Summary ---
Author Organization [facility] Address [address] [place] [address] Care Team Providers Care Chip Mixing Machine Operator Name Role Phone Karma Timmons MD Primary Care Provider Encounter Details Date Type Department Care Team ([facility] Contact Info) Description 03/11/2023 Abstract [facility] [address] [id number] Filiberto Brunson DO [address] Chance Beth, [id number] Social History Tobacco Use Types Packs/Day Years [...] PM EDT Office Visit [facility] [address] [place] [address] Adrianna Kim CNM [address] [place] [address] documented as of this encounter Visit Diagnoses Not on filedocumented in this encounter Care Teams Chip Mixing Machine Operator Relationship Specialty Start Date End Date Karma Timmons MD [address] [place] [address] PCP - General Family Medicine 02/18/23 documented as of this encounter
--- OUTSIDE RECORDS SUMMARY | 2025-04-03 14:37 | XMS_ITS | Encounter Summary ---
Author Organization [facility] Address [address] [place] [address] Care Team Providers Care Direct Marketing Analyst Name Role Phone Karma Timmons MD Primary Care Provider [phone] Encounter Details Date Type Department Care Team ([facility] Contact Info) Description 04/13/2023 Abstract [facility] [address] [place] [address] Karma Timmons MD [address] [place], [place] [phone] Social History Tobacco Use Types Packs/Day Years Used Date Smoking Tobacco: Never Smokeless Tobacco: Never Alcohol Use Standard Drinks/Week Comments Never 0 (1 standard drink = 0.6 oz pur e alcohol) Caffeine: occasional pop Comments No Sex and Gender Information Value Date Recorded Sex Assigned at Not on file Legal Sex Female 7:05 PM EDT Gender Identity Not on file Sexual Orientation Not on file documented as of this encounter Plan of Treatment Upcoming Encounters Date Type Department Care Team ([facility] Contact Info) Description 05/01/2025 2:00 PM EDT Office Visit [facility] [address] [place] [address] Adrianna Kim CNM [address] [place] [address] documented as of this encounter Visit Diagnoses Not on filedocumented in this encounter Care Teams Direct Marketing Analyst Relationship Specialty Start Date End Date Karma Timmons MD [address] [place] [address] PCP - General Family Medicine 02/18/23 documented as of this encounter
--- OUTSIDE RECORDS SUMMARY | 2025-04-03 14:37 | XMS_ITS | Encounter Summary ---
Author Organization [facility] Healthcare Address [address] [place] [address] Care Team Providers Care Flooring Installer Name Role Phone Karma Timmons MD Primary Care Provider [phone] Encounter Details Date Type Department Care Team (Late Contact Info) Description 12/14/2024 Results Follow-Up [facility] [address] [place] [address] Adrianna Kim CN [address] [place], [place] [phone] US OB limited 1+ fetuses Social History Tobacco Use Types Packs/Day Years [...] EDT Office Visit [facility] [address] [place] [address] Adrianna Kim CNM [address] [place], [place] [address] documented as of this encounter Visit Diagnoses Not on filedocumented in this encounter Additional Health Concerns Assessment Noted Time PHQ-9 Depression Total Score: 14 024 10:00 AM EDT documented as of this encounter Care Teams Flooring Installer Relationship Specialty Start Date End Date Karma Timmons MD [address] [place] [address] PCP - General Family Medicine 02/18/23 documented as of this encounter
--- OUTSIDE RECORDS SUMMARY | 2025-04-03 14:37 | XMS_ITS | Encounter Summary ---
Author Organization [facility] Address [address] [place] [address] Care Team Providers Care Coldfusion Name Role Phone Karma Timmons MD Primary Care Provider [phone] Encounter Details Date Type Department Care Team ([facility] Contact Info) Description 05/28/2023 Abstract [facility] [address] [place] [address] Karma Timmons MD [address] [place], [place] [phone] Social History Tobacco Use Types Packs/Day Years [...] Upcoming Encounters Date Type Department Care Team ([facility] Contact Info) Description 05/01/2025 2:00 PM EDT Office Visit [facility] [address] [place] [address] Adrianna Kim CNM [address] [place] [address] documented as of this encounter Visit Diagnoses Not on filedocumented in this encounter Care Teams Coldfusion Relationship Specialty Start Date End Date Karma Timmons MD [address] [place] [address] PCP - General Family Medicine 02/18/23 documented as of this encounter
--- OUTSIDE RECORDS SUMMARY | 2025-04-03 14:37 | XMS_ITS | Encounter Summary ---
Author Organization [facility] Address [address] [place] [address] Care Team Providers Care Facility Operations Manager Name Role Phone Karma Timmons MD Primary Care Provider [phone] Encounter Details Date Type Department Care Team ([facility] Contact Info) Description 05/28/2023 Abstract [facility] [address] [place] [address] Karma Timmons MD [address] [place], [place] [address] Social History Tobacco Use Types Packs/Day Years [...] Upcoming Encounters Date Type Department Care Team ([facility] Contact Info) Description 05/01/2025 2:00 PM EDT Office Visit [facility] [address] [place] [address] Adrianna Kim CNM [address] [place] [address] documented as of this encounter Visit Diagnoses Not on filedocumented in this encounter Care Teams Facility Operations Manager Relationship Specialty Start Date End Date Karma Timmons MD [address] [place] [address] PCP - General Family Medicine 02/18/23 documented as of this encounter
--- OUTSIDE RECORDS SUMMARY | 2025-04-03 14:37 | XMS_ITS | Encounter Summary ---
Author Organization [facility] Address [address] [place] [address] Care Team Providers Care Component Assembler Supervisor Name Role Phone Laura Canales MD Primary Care Provider [phone] Encounter Details Date Type Department Care Team (Late st Contact Info) Description 08/10/2024 Clinisync Result Encounter [facility] External Department Unsolicited Tiago Kim CNM [address] [place] [address] Social History Tobacco Use Types Packs/Day Years [...] PM EDT Office Visit [facility] [address] [place] [address] Tiago Kim CNM [address] [place], [place] [phone] documented as of this encounter Procedures Procedure Name Priority Date/Time Associated Diagnosis Comments US OB ANATOMY 08/10/2024 7:19 AM EST documented in this encounter Results * US OB ANATOMY (08/10/2024 7:19 AM EST) Anatomical Region Laterality Modality Other 08/10/2024 7:19 AM EST Narrative 08/10/2024 7:21 [place] [address] Ultrasound Report Signed Patient: NANI ARENAS MR#: [id number] : 2005 Acct:[id number] Age/Sex: 19 / F ADM Date: 08/09/24 Loc: US Attending Dr: TIAGO KIM APRN, CNM Ordering Physician: TIAGO KIM APRN, CNM Date of Service: 08/09/24 Procedure(s): US OB anatomy Accession Number(s): [id number] cc: LAURA CANALES ; TIAGO KIM APRN, CNM The [place] [address] Patient Name: NANI ARENAS MRN: [id number] date: 2005 Sex: F Assigned Patient Location: US Current Patient Location: Accession/Order Number: [id number] Exam Date: 08/09/2024 19:25 Report Date: 08/10/2024 07:19 At the request of: TIAGO KIM Procedure: US OB anatomy EXAMINATION: US OB anatomy HISTORY: RELATED CONDITION IN SECOND TRIMESTER O26.92 COMPARISON: No relevant comparison available. TECHNIQUE: Transabdominal sonographic examination was performed for obstetrical and evaluation. FINDINGS: Number: 1 Heart Rate: 149.17 bpm H.B. /min Amniotic Fluid Volume: Subjectively normal Placental Location: ANTERIOR, grade 1. Placental edge is 7.6 cm from the internal cervical os Cervix Length: 3.41 cm , closed Normal anatomy: Lateral ventricles, cerebellum, posterior fossa, nose, lips, orbits, four-chamber heart, RVOT, LVOT, diaphragm, stomach, kidneys, abdominal cord insertion, bladder, umbilical arteries, three-vessel cord, spine, extremities BIOMETRY: BPD: 5.24 cm; 21 weeks 6 days; 31.70 % HC: 19.36 cm; 21 weeks 4 days; 13.50 % AC: 16.83 cm; 21 weeks 6 days; 27.80 % FL: 3.94 cm; 22 weeks 5 days; 53.10 % EFW:479.47 g; 36.10 % FL/AC: 23.41 FL/BPD: 75.22 HC/AC: 1.15 GESTATIONAL AGE: Age by EDC: 22 weeks 2 days OZZIE by EDC: 2024-12-11 Age by current US: 22 weeks 0 days OZZIE by current US: 2024-12-13 US/US OB anatomy IMPRESSION: Normal anatomy scan *Reference: [facility] Practice Guideline for the performance of Obstetric Ultrasound Examinations, May 02, 2007. Electronically authenticated by: LISA RAMSEY Date: 08/10/2024 07:19 Dictated By: Lisa Ramsey M.D. Signed By: 08/10/24720 DD/ 8 TD/TT: Permastone Mechanic: Procedure Note Radiology, Radiologist, MD - 08/10/2024 [place] [address] Ultrasound Report Signed Patient: NANI ARENAS RMR#: [id number] : 2005Acct:[id number] Age/Sex: 19 / FADM Date: 08/09/24 Loc: US Attending Dr: TIAGO KIM APRN, CNM Ordering Physician: TIGAO KIM APRN, CNM Date of Service: 08/09/24 Procedure(s): US OB anatomy Accession Number(s): [id number] cc: LAURA CANALES VALERIE APRN, CNM The [address] [address] Patient Name: NANI ARENAS MRN: [id number] date: 2005 Sex: F Assigned Patient Location: US Current Patient Location: Accession/Order Number: [id number] Exam Date: 08/09/2024 19:25 Report Date: 08/10/2024 07:19 At the request of: TIAGO KIM Procedure: US OB anatomy EXAMINATION: US OB anatomy HISTORY: RELATED CONDITION IN SECOND TRIMESTER O26.92 COMPARISON: No relevant comparison available. TECHNIQUE: Transabdominal sonographic examination was performed for obstetrical and evaluation. FINDINGS: Number: 1 Heart Rate: 149.17 bpm H.B. /min Amniotic Fluid Volume: Subjectively normal Placental Location: ANTERIOR, grade 1. Placental edge is 7.6 cm from the internal cervical os Cervix Length: 3.41 cm , closed Normal anatomy: Lateral ventricles, cerebellum, posterior fossa, nose,lips, orbits, four-chamber heart, RVOT, LVOT, diaphragm, stomach, kidneys,abdominal cord insertion, bladder, umbilical arteries, three-vessel cord, spine, extremities BIOMETRY: BPD: 5.24 cm; 21 weeks 6 days; 31.70 % HC: 19.36 cm; 21 weeks 4 days; 13.50 % AC: 16.83 cm; 21 weeks 6 days; 27.80 % FL: 3.94 cm; 22 weeks 5 days; 53.10 % EFW:479.47 g; 36.10 % FL/AC: 23.41 FL/BPD: 75.22 HC/AC: 1.15 GESTATIONAL AGE: Age by EDC: 22 weeks 2 days OZZIE by EDC: 2024-12-11 Age by current US: 22 weeks 0 days OZZIE by current US: 2024-12-13 US/US OB anatomy IMPRESSION: Normal anatomy scan *Reference: [facility] Practice Guideline for the performance of Obstetric Ultrasound Examinations, May 02, 2007. Electronically authenticated by: LISA RAMSEY Date: 08/10/2024 07:19 Dictated By: Lisa Ramsey M.D. Signed By:08/10/24 0721 DD/ 07 TD/TT: Permastone Mechanic: Tiago Kim [facility] Final Resu lt documented in this encounter Visit Diagnoses Not on filedocumented in this encounter Additional Health Concerns Assessment Noted Time PHQ-9 Depression Total Score: 14 01/24/ 024 10:00 AM EDT documented as of this encounter Care Teams Component Assembler Supervisor Relationship Specialty Start Date End Date Laura Canales MD [address] [place] [address] PCP - General Family Medicine 02/18/23 documented as of this encounter
--- NOTE | 2025-04-03 14:44 | CT_ITS ---
The [address] [address] Patient Name: ABHILASH CHOI MRN: [id number] date: 2005 Sex: F Assigned Patient Location: ER Current Patient Location: Accession/Order Number: [id number] Exam Date: 04/03/2025 15:40 Report Date: 04/03/2025 16:14 At the request of: RITCHIE BLANDON Procedure: CT angio chest CT ANGIOGRAM OF THE CHEST, PULMONARY EMBOLISM PROTOCOL: CLINICAL INFORMATION: Chest pain shortness of breath dizziness for 3 days. COMPARISON: None TECHNIQUE: Following intravenous injection of contrast CT scans of the chest were obtained using pulmonary embolism protocol. Coronal and sagittal reconstructed images, as well as volume rendered CT pulmonary angiographic images were also submitted.The CT exam was performed using one or more of the following dose reduction techniques: Automated exposure control, adjustment of the MA and/or Kv according to patient size, or use of the iterative reconstruction technique. FINDINGS: Pulmonary Vasculature: Contrast bolus is adequate for evaluation of pulmonary embolism. Pulmonary trunk appears nondilated. No filling defects are identified to suggest pulmonary embolism. Mediastinum : Thoracic aorta is normal in caliber. No pericardial effusion. No lymphadenopathy. The esophagus is grossly unremarkable. Lungs: No focal consolidation, pneumothorax or pleural effusion. Upper abdomen: No acute findings Soft tissue/bones: Soft tissues surrounding the chest wall demonstrate no acute findings. Osseous structures demonstrate degenerative change. CT/CT angio chest IMPRESSION: NO EVIDENCE OF ACUTE PULMONARY EMBOLISM OR PROCESS. Impression dictated by: Pablo Cuevas Jr., D.O. 04/03/2025 4:14 PM Dictation Location: [place] [address] Electronically authenticated by: [id number] Y Date: 04/03/2025 16:14
--- NOTE | 2025-04-03 14:44 | ECG_ITS ---
The [facility] Test Date: 2025-04-03 Pat Name: ABHILASH CHOI Department: Room: - Gender: Female Reprint Sorter: : 2005 Requested By: [id number] Order Number: [id number] Reading MD: CHUCK DELUCA Measurements Intervals [place] Rate: 94 P: 59 WA: 142 QRS: 75 QRSD: 84 T: 8 QT: 336 QTc: 388 Interpretive Statements 1100 Sinus rhythm 4068 Nonspecific Twave abnormality 9130 borderline ECG No previous ECG available for comparison Electronically Signed On 04-04-2025 13:55:27 EDT by CHUCK DELUCA
--- NOTE | 2025-04-03 14:45 | ED.CHESTPAI1 ---
HPI - Chest Pain General Chief Complaint: Chest Pain Stated Complaint: CHEST PAIN SOB NAUSEA Time Seen by Provider: 04/03/25 14:37 Source: patient Mode of arrival: walk-in Limitations: no limitations History of Present Illness HPI narrative: 19 year old female presents to the ED for palpitations, chest pain. Reports SOB, dizziness. Symptoms have been intermittent for 2 weeks, more constant the past 3 days. Denies fever, chills, IBARRA, vision changes. Denies N/V/D. She is taking an oral contraceptive. States she stopped breast feeding 2 weeks ago. She is 3 months . Reports wearing a Holter monitor in the past with no alarming results. Related Data Previous Rx's ?Medication ?Instructions ?Recorded acetaminophen 325 mg tablet 650 mg (2 x 325 mg) PO Q6H PRN 12/16/24 Mild Pain 28 days #120 tabs benzocaine 20 %-menthol 0.5 % 1 spray topical Q2H PRN Pain 28 12/16/24 topical aerosol (Dermoplast (with days #1 g menthol)) docusate sodium 100 mg capsule 100 mg PO BID 28 days #56 caps 12/16/24 ferrous sulfate 325 mg (65 mg 325 mg PO BID 28 days #56 tabs 12/16/24 iron) tablet glycerin-witch juliet 12.5 %-50 % 1 pad topical Q2H PRN Pain 28 days 12/16/24 topical pads ([employer].R. Witch Juliet) #90 ea ibuprofen 400 mg tablet 800 mg (2 x 400 mg) PO Q8H 28 days 12/16/24 #168 tabs lidocaine HCl 2 % mucosal solution 5 ml topical ONCE PRN Pain 28 days 12/16/24 #1 mL simethicone 80 mg chewable tablet 80 mg PO QID PRN Abdominal 12/16/24 (Gas Relief 80 (simethicone)) Distention 28 days #90 tabs Allergies Allergy/AdvReac Type Severity Reaction Status Date / Time No Known Drug Allergies Allergy Verified 04/03/25 14:35 Review of Systems ROS Constitutional Denies: fever or chills Cardiovascular Reports: chest pain and palpitations; Denies: edema or lightheadedness Respiratory Reports: shortness of breath Gastrointestinal Denies: abdominal pain Musculoskeletal Denies: back pain or neck pain Integumentary/Breast Denies: rash Neurological Reports: dizziness; Denies: headache, numbness in extremities, weakness in extremities or lack of coordination [facility] Medical History (Updated 04/03/25 @ 16:42 by Cinthya Flores) Missed ab ?O02.1 - Missed (ICD-10) Family History (Updated 03/03/23 @ 12:43 by Coco Willis RN) Other Family history of COPD (chronic obstructive pulmonary disease) Family history of diabetes mellitus Social History Within the past year, how often did you have a drink containing alcohol: never Score interpretation: A score less than 3 is consistent with normal alcohol consumption. Smoking status: Never smoker Non-prescribed substance use: denies use Previous occupational history: [employer] Known occupational exposures/hazards: No Highest level of school completed/degree received: high school graduate Little interest or pleasure in doing things: not at all Feeling down, depressed, or hopeless: not at all Feel stressed/tense/nervous/anxious/difficulty sleeping: not at all Exam Constitutional Vital Signs, click to edit/add: Last Vital Signs Temp 98.1 F 04/03/25 14:35 Pulse 89 04/03/25 16:05 Resp 18 04/03/25 16:05 BP 121/74 04/03/25 16:05 Pulse Ox 100 04/03/25 16:05 O2 Del Method Room Air 04/03/25 15:09 Common normals: no apparent distress and oriented x3 General appearance: cooperative HENMT Common normals: moist oral mucous membranes Eye Common normals: PERRL, EOMs intact bilaterally, conjunctivae normal and no scleral icterus Neck & C-Spine Common normals: supple and no JVD Chest Chest: symmetrical chest wall rise Respiratory Common normals: normal respiratory effort and clear to auscultation bilaterally Effort & inspection: able to speak in complete sentences and symmetric chest movement Cardio Common normals: regular rate and regular rhythm Neuro Common normals: oriented x3, CN's II-XII intact bilaterally, moves all extremities and no focal motor deficits Sensorium/orientation: awake and alert Speech: speech normal Course Vital Signs Vital signs: Vital Signs Temperature 98.1 F 04/03/25 14:35 Pulse Rate 113 H 04/03/25 14:35 Respiratory Rate 18 04/03/25 14:35 Blood Pressure 151/83 H 04/03/25 14:35 Pulse Oximetry 97 04/03/25 14:35 Oxygen Delivery Method Room Air 04/03/25 14:35 Temperature 98.1 F 04/03/25 14:35 Pulse Rate 89 04/03/25 16:05 Respiratory Rate 18 04/03/25 16:05 Blood Pressure 121/74 04/03/25 16:05 Pulse Oximetry 100 04/03/25 16:05 Oxygen Delivery Method Room Air 04/03/25 15:09 MDM - Chest Pain MDM Narrative Medical decision making narrative: CBC, CMP, troponin, and BNP were unremarkable. CT chest was negative for PE. She was given IV fluids. BP and HR were unremarkable. Findings were discussed with the patient. Follow up with pcp and/or [facility] for a recheck, further evaluation and treatment. Differential Diagnosis Differential diagnosis: Likely stable angina, unstable angina pectoris, atypical chest pain, st elevation myocardial infarction and chest pain Medical Records Data Attestation: I reviewed the patient's medical records. Lab Data Attestation: I reviewed the patient's lab results. Labs: Lab Results 04/03/25 Range/Units 14:58 WBC 7.1 (4.0-11.0) 10^3/uL RBC 4.88 (4.20-5.40) 10^6/uL Hgb 12.8 (12.0-16.0) g/dL Hct 39.8 (36.0-48.0) % MCV 81.6 (81.0-99.0) fL MCH 26.2 L (26.7-34.0) pg MCHC 32.2 (29.9-35.2) g/dL RDW 15.3 H (11.0-15.0) % Plt Count 323 (150-450) 10^3/uL MPV 9.2 L (9.5-13.5) fL Neut % (Auto) 61.2 (43.0-75.0) % Lymph % (Auto) 26.1 (20.5-60.0) % [place] % (Auto) 8.1 (1.7-12.0) % Eos % (Auto) 3.7 (0.9-7.0) % Baso % (Auto) 0.6 (0.2-2.0) % Neut # (Auto) 4.3 (1.4-6.5) 10^3/uL Lymph # (Auto) 1.9 (1.2-3.8) 10^3/uL [place] # (Auto) 0.6 (0.3-0.8) 10^3/uL Eos # (Auto) 0.3 (0.0-0.7) 10^3/uL Baso # (Auto) 0.0 (0.0-0.1) 10^3/uL Abs Immat Gran (auto) 0.02 (0.00-0.03) 10^3/uL Imm/Tot Granulo (auto) 0.3 (0.0-0.5) % Sodium 141 (136-145) mmol/L Potassium 4.1 (3.5-5.1) mmol/L Chloride 106 (98-107) mmol/L Carbon Dioxide 26.0 (21.0-32.0) mmol/L Anion Gap 13.1 BUN 12.0 (7.0-18.0) mg/dL Creatinine 0.67 (0.55-1.02) mg/dL Est GFR ( Amer) >60 (>=60 mL/min/1.73m^2) Est GFR (Non-Af Amer) >60 (>=60 mL/min/1.73m^2) BUN/Creatinine Ratio 17.9 Glucose 91 (74-106) mg/dL Calcium 9.4 (8.5-10.1) mg/dL Total Bilirubin 0.2 (0.2-1.0) mg/dL AST 12 L (15-37) U/L ALT 21 (14-59) U/L Alkaline Phosphatase 125 H (46-116) U/L Troponin I High Sens <4.0 L (4.0-51.3) pg/mL NT-Pro-B Natriuret Pep 18.0 (<=450.0) pg/mL Total Protein 7.9 (6.4-8.2) g/dL Albumin 3.7 (3.4-5.0) g/dL Globulin 4.2 g/dL Albumin/Globulin Ratio 0.9 Serum HCG, Qual Negative (NEGATIVE) Imaging Data CT scan - chest: Attestation: I have reviewed the pertinent imaging results. Radiologist's impression: ITS Impressions Chest CTA 04/03/25 14:44 IMPRESSION: NO EVIDENCE OF ACUTE PULMONARY EMBOLISM OR PROCESS. Impression dictated by: Pablo Cuevas Jr., D.O. 04/03/2025 4:14 PM Dictation Location: [place] [id number] Electronically authenticated by: [id number] Y Date: 04/03/2025 16:14 ECG Data Attestation: ?I have reviewed the pertinent ECG results. (EKG was reviewed by the attending physician. It showed sinus rhythm at a rate of 94. No STEMI.) Interpretation: Measurements Intervals [place] Rate: 94 P: 59 [place]: 140 QRS: 74 QRSD: 86 T: 5 QT: 336 QTc: 388 Interpretive Statements 1100 Sinus rhythm 68448 with occasional ventricular premature complexes (Unreliable analysis due to noise) 60443 Electronic ventricular pacemaker (Unreliable analysis due to noise) 4068 Nonspecific Twave abnormality 0102 ARTIFACT PRESENT 0201 -- Analysis based on intrinsic rhythm 9140 abnormal rhythm ECG No previous ECG available for comparison Heart Score History: Slightly/Non-Suspicious ECG: Normal Age: <45 years Risk Factors: 1 or 2 Risk Factors Troponin: <Normal Limit Total Heart Score Recommendations & Risks:: 1 Discharge Plan Discharge Chief Complaint: Chest Pain Clinical Impression: Palpitations, Dyspnea Patient Disposition: Home, Self-Care Time of Disposition Decision: 16:41 Condition: Good Mode of Transportation: Private Vehicle Prescriptions / Home Meds: No Action acetaminophen 325 mg Tablet 650 mg PO Q6H PRN (Reason: Mild Pain) 28 Days Qty: 120 0RF Dermoplast (with menthol) 20-0.5 % Aerosol 1 spray topical Q2H PRN (Reason: Pain) 28 Days Qty: 1 0RF ferrous sulfate 325 mg (65 mg iron) Tablet 325 mg PO BID 28 Days Qty: 56 3RF ibuprofen 400 mg Tablet 800 mg PO Q8H 28 Days Qty: 168 1RF docusate sodium 100 mg Capsule 100 mg PO BID 28 Days Qty: 56 3RF lidocaine HCl 2 % Solution 5 ml topical ONCE PRN (Reason: Pain) 28 Days Qty: 1 3RF simethicone [Gas Relief 80 (simethicone)] 80 mg Tablet,Chewable 80 mg PO QID PRN (Reason: Abdominal Distention) 28 Days Qty: 90 1RF A.E.RInder Garza 12.5-50 % Pads, Medicated 1 pad topical Q2H PRN (Reason: Pain) 28 Days Qty: 90 2RF Print Language: Mongolian Instructions: Chest Pain (ED), Heart Palpitations (ED), Dyspnea (ED) Additional Instructions: Return to the ED for worsening symptoms. Follow up with your physician for a recheck, further evaluation and treatment. Referrals: LAURA CANALES [Primary Care Provider, Family Practice] - 1 week Discharge Date/Time: 04/03/25 16:52
--- OUTSIDE RECORDS SUMMARY | 2025-04-03 15:01 | XMS_ITS | CCD ---
Author Organization [facility] Care Team Providers Care Silversmith Apprentice Name Role Phone Iain SAUL, Karma Jain Primary Care Provider FLORO, TIAGO L Attending Unavailable FLORO, TIAGO L Attending Unavailable FLORO, TIAGO L Referring Unavailable FLORO, TIAGO L Attending Unavailable FLORO, TIAGO L Attending Unavailable FLORO, TIAGO L Attending Unavailable IAINKARMA Attending Unavailable FLORO, TIAGO L Attending Unavailable [...] Date of Onset Reaction(s) Facility (20 sources) [place] Propensity to adverse reactions [facility] Medications Current Medications Medication Drug Class(es) Dates Sig (Normalized) Sig (Original) cephalexin 500 mg oral capsule (2 sources) Cephalosporin Antibacterial Start: 12-26-2024 End: 01-05-2025 take 1 capsule by mouth in the morning, then take 1 capsule by mouth in the evening, then take 1 capsule by mouth at bedtime cephalexin (Keflex) 500 MG capsule Indications: Acute cystitis without hematuria Take 1 capsule (500 mg) by mouth in the morning and 1 capsule (500 mg) in the evening and 1 capsule (500 mg) before bedtime. Do all this for 10 days. 30 capsule 12/26/2024 01/05/2025 Active docusate sodium 100 mg oral capsule (4 sources) take 1 capsule by mouth in the morning docusate sodium (Colace) 100 MG capsule Take 100 mg by mouth in the morning and 100 mg before bedtime. Active ferrous sulfate 325 mg oral tablet (4 sources) take 1 tablet by mouth at mealtime ferrous sulfate 325 (65 Fe) MG tablet Take 325 mg by mouth in the morning. Take with meals. Active norethindrone 0.35 mg oral tablet (2 sources) Start: 01-23-2025 End: 04-23-2025 take 1 tablet by mouth once daily norethindrone (Micronor) 0.35 MG tablet Indications: Unwanted fertility Take 1 tablet (0.35 mg) by mouth Daily 90 tablet 3 01/23/2025 04/23/2025 Active Vit-Fe Fumarate-FA ( Vitamins) 27-0.8 MG tablet (20 sources) End: 12-26-2024 Vit-Fe Fumarate-FA ( Vitamins) 27-0.8 MG tablet Take by mouth 12/26/2024 Discontinued (Therapy completed) Vit-Fe Fumarate-FA ( Vitamins) 27-0.8 MG tablet Take by mouth Active sertraline 25 mg oral tablet (20 sources) Serotonin Reuptake Inhibitor Start: 07-31-2024 End: 12-26-2024 take 1 tablet by mouth once daily sertraline (Zoloft) 25 MG tablet Indications: Anxiety, generalized (CMS/HCC) Take 1 tablet (25 mg) by mouth Daily 30 tablet 2 07/31/2024 12/26/2024 Discontinued (Therapy completed) Completed/Discontinued Medications Medication Drug Class(es) Dates Sig [...] stress disorder, unspecified] Onset: 03-29-2023 03-29-2023 Chronic Contraceptive and procreative management (2 sources) Unwanted fertility ; Translations: [Encounter for other general counseling and advice on contraception] 01-23-2025 Episodic Headache; including migraine (20 sources) Chronic cluster headache; Translations: [Chronic cluster headache, not intractable] Onset: 12-21-2023 12-21-2023 Chronic Menstrual disorders (20 sources) Menorrhagia; Translations: [Excessive and frequent menstruation with regular cycle] Onset: 12-21-2023 12-21-2023 Chronic Other conditions (2 sources) Kirlz-qis-fvvod at regardless of gestation period; Translations: [Other [...] [8 weeks gestation of ] 05-01-2024 Episodic Urinary tract infections (2 sources) Acute cystitis; Translations: [Acute cystitis without hematuria] 12-26-2024 Episodic Past or Other Problems Problem Classification Problem Date Documented Da te Episodic/Chronic Cardiac dysrhythmias (20 sources) Tachycardia; Translations: [Tachycardia, unspecified] Onset: 12-21-2023 12-21-2023 Episodic Hemorrhage during ; abruptio placenta; placenta previa (2 sources) Threatened miscarriage in first trimester; Translations: [Threatened ] 04-11-2024 Episodic Mood disorders (20 sources) Mood disorders Onset: 01-25-2024 01-25-2024 Results Test Name Value Interpretation Reference Range Facility ALL CBC WITH AUTO DIFFon BASOPHILS ABSOLUTE AUTO 0 [facility] Basophils/100 WBC (Bld) 0.2 % 0.2 - 2.0 % [facility] Eosinophils/100 WBC (Bld) 0.2 % Low 0.9 - 7.0 % [facility] Erythrocyte distribution width (RBC) [Ratio] 15.5 % High 11.0 - 15.0 % [facility] Hematocrit (Bld) [Volume fraction] 29.4 % Low 36.0 - 48.0 % [facility] Hemoglobin (Bld) [Mass/Vol] 9.7 g/dL Low 12.0 - 16.0 g/dL [facility] IMMATURE GRANULOCYTES ABS AUTO 0.1 High [facility] Immature granulocytes/100 WBC (Bld) 0.6 % High 0.0 - 0.5 % [facility] Interpretation and review of laboratory results Abnormal [facility] LYMPHOCYTES ABSOLUTE AUTO 1.5 [facility] Lymphocytes/100 WBC (Bld) 8.9 % Low 20.5 - 60.0 % [facility] MCH (RBC) [Entitic mass] 25.9 pg Low 26.7 - 34.[address] [facility] MCHC (RBC) [Mass/Vol] 33 g/dL 29.9 - 35.2 g/dL [facility] MCV (RBC) [Entitic vol] 78.4 fL Low 81.0 - 99.0 fL [facility] MONOCYTES ABSOLUTE AUTO 1 High [facility] Monocytes/100 WBC (Bld) 5.9 % 1.7 - 12.0 % [facility] NEUTROPHILS ABSOLUTE AUTO 14 High [facility] Neutrophils/100 WBC (Bld) 84.2 % High 43.0 - 75.0 % [facility] Platelet mean volume (Bld) [Entitic vol] 9.9 fL 9.5 - 13.5 fL [facility] EO # 0 [facility] PLT 299 [facility] RBC 3.75 Low [facility] WBC 16.6 High [facility] UA (CLEAN/CATCH) MDS COORDINATOR/RICKY RO IF IND.on 12-14-2024 BILIRUBIN URINE Negative NEGATIVE [facility] BLOOD URINE Negative NEGATIVE [facility] Clarity (U) CLEAR CLEAR [facility] Color (U) LT. YELLOW YELLOW [facility] GLUCOSE URINE UA Negative NEGATIVE mg/dL [facility] Interpretation and review of laboratory results Abnormal [facility] Ketones Ql (U) Negative NEGATIVE mg/dL [facility] Leukocyte esterase Test strip Ql (U) Negative NEGATIVE [facility] NITRITE URINE Negative NEGATIVE [facility] pH (U) 6.0 [pH] 5.0 - 9.0 [facility] PROTEIN URINE Negative NEG/TRACE mg/dL [facility] SPECIFIC GRAVITY URINE <=1.005 Abnormal 1.005 - 1.025 [facility] URINE MICROSCOPIC INDICATED NO [facility] UROBILINOGEN URINE 0.2 EU/dL 0.2 - 1.0 EU/dL [facility] US for pregnancyon [address] [place] [address] Ultrasound Report Signed Patient: NANI CHOI MR#: [id number] : 2005 Acct:[id number] Age/Sex: 19 / F ADM Date: Loc: [facility] 255- Attending Dr: TIAGO KIM APRN, CNM Ordering Physician: TIAGO KIM APRN, CNM Date of Service: 12/14/24 Procedure(s): US OB limited Accession Number(s): [id number] cc: KARMA TIMMONS ; TIAGO KIM APRN, CNM [place] [id number] Patient Name: NANI CHOI MRN: [facility]:[id number] date: 2005 Sex: F Assigned Patient Location: [facility] Current Patient Location: [facility] Accession/Order Number: [id number] Exam Date: 12/14/2024 14:51 Report Date: 12/14/2024 14:52 At the request of: TIAGO KIM APRN, CNM Procedure: US OB limited Limited obstetrical ultrasound HISTORY: Assessment of position prior to delivery The fetus is in cephalic presentation with longitudinal lie. The heart rate 148 bpm. US/US OB limited IMPRESSION: Cephalic presentation of fetus. Impression dictated by: Cody Joseph M.D. 12/14/2024 2:52 PM Dictation Location: [employer]-[facility] Electronically authenticated by: [id number] Y Date: 12/14/2024 14:52 Dictated By: Cody Joseph D.O. Signed By: 12/14/241454 DD/ 51 TD/TT: Collator Operator: [facility] Radiology, Radiologist, MD - 12/14/2024 [place] [address] Ultrasound Report Signed Patient: NANI CHOI MR#: [id number] : 2005 Acct:[id number] Age/Sex: 19 / F ADM Date: Loc: [facility] 255-[address]: TIAGO KIM APRN, CNM Ordering Physician: TIAGO KIM APRN, CNM Date of Service: 12/14/24 Procedure(s): US OB limited Accession Number(s): [id number] cc: KARMA TIMMONS VALERIE APRN, CNM [facility] [place] [id number] Patient Name: NANI CHOI MRN: [facility]:[id number] date: 2005 Sex: F Assigned Patient Location: [facility] Current Patient Location: [facility] Accession/Order Number: [id number] Exam Date: 12/14/2024 14:51 Report Date: 12/14/2024 14:52 At the request of: TIAGO KIM APRN, CNM Procedure: US OB limited Limited obstetrical ultrasound HISTORY: Assessment of position prior to delivery The fetus is in cephalic presentation with longitudinal lie. The heart rate 148 bpm. US/US OB limited IMPRESSION: Cephalic presentation of fetus. Impression dictated by: Cody Joseph M.D. 12/14/2024 2:52 PM Dictation Location: [employer] Electronically authenticated by: [id number] Y Date: 12/14/2024 14:52 Dictated By: Cody Joseph D.O. Signed By: 12/14/241454 DD/ 51 TD/TT: Collator Operator: [facility] [employer] Radiology Study observation (narrative) [facility] US for pregnancyOrdered By: Radiologist Radiology on 12-14-2024 [facility] [employer] Work Phone: US OB FOLLOW UP TRANSABDOMIN AL APPROACHon [...] 3112 gm / 6 lbs, 13 oz (1878-8010 gm) [place] Normal: 3540 gm (2889-7028 gm) [place] Wt%: 18% for 39.6 wks [...] anterior placenta. Dictated and transcribed 12/08/24/bart rodríguez [facility] sent results to ordering physician. This [...] 1448 gm / 3 lbs, 3 oz (5816-6763 gm) [place] Normal: 1641 gm (6566-2125 gm) [place] Wt%: 18% for 30.4 wks [...] anatomical survey not performed. Dictated and transcribed 05/02/24/dpd This report has been electronically signed and approved by the interpreting radiologist. Electronically Signed Prabhjot Simpson M.D. 2024-05-02 12:50:19 Normal Not Available Vital Signs Date Time Vital Sign Value Performing Clinician Kamille morales 01-23-2025 14:07-0400 Body mass index (BMI) [Ratio] 31.18 kg/m2 Tiaog Floro CNM Work Phone: [facility] 01-23-2025 14:07-0400 Body weight 79.83 kg Tiago Floro CNM Work Phone: [facility] 01-23-2025 14:07-0400 Diastolic blood pressure 80 mm[Hg] Tiago Floro CNM Work Phone: [facility] 01-23-2025 14:07-0400 Systolic blood pressure 120 mm[Hg] Tiago Floro CNM Work Phone: [facility] 12-26-2024 11:32-0400 Body mass index (BMI) [Ratio] 32.06 kg/m2 Tiago Floro CNM Work Phone: [facility] 12-26-2024 11:32-0400 Body weight 82.1 kg Tiago Floro CNM Work Phone: [facility] 12-26-2024 11:32-0400 Diastolic blood pressure 80 mm[Hg] Tiago Floro CNM Work Phone: [facility] 12-26-2024 11:32-0400 Systolic blood pressure 120 mm[Hg] Tiago Floro CNM Work Phone: [facility] 12-05-2024 16:38-0400 Body mass index (BMI) [Ratio] 35.43 kg/m2 Tiago Floro CNM Work Phone: [facility] 12-05-2024 16:38-0400 Body weight 90.72 kg Taigo Floro CNM Work Phone: [facility] 12-05-2024 16:38-0400 Diastolic blood pressure 80 mm[Hg] Tiago Floro CNM Work Phone: [facility] 12-05-2024 16:38-0400 Systolic blood pressure 120 mm[Hg] Tiago Floro CNM Work Phone: [facility] 11-29-2024 16:29-0400 Body mass index (BMI) [Ratio] 35.43 kg/m2 Tiago Floro CNM Work Phone: [facility] 11-29-2024 16:29-0400 Body weight 90.72 kg Tiago Floro CNM Work Phone: [facility] 11-29-2024 16:29-0400 Diastolic blood pressure 70 mm[Hg] Tiago Floro CNM Work Phone: [facility] 11-29-2024 16:29-0400 Systolic blood pressure 120 mm[Hg] Tiago Floro CNM Work Phone: [facility] 11-22-2024 16:15-0400 Body mass index (BMI) [Ratio] 34.37 kg/m2 Tiago Floro CNM Work Phone: [facility] 11-22-2024 16:15-0400 Body weight 88 kg Tiago Floro CNM Work Phone: [facility] 11-22-2024 16:15-0400 Diastolic blood pressure 80 mm[Hg] Tiago Floro CNM Work Phone: [facility] 11-22-2024 16:15-0400 Systolic blood pressure 120 mm[Hg] Tiago Floro CNM Work Phone: [facility] 11-15-2024 16:31-0400 Body mass index (BMI) [Ratio] 34.54 kg/m2 Tiago Floro CNM Work Phone: [facility] 11-15-2024 16:31-0400 Body weight 88.45 kg Tiago Floro CNM Work Phone: [facility] 11-15-2024 16:31-0400 Diastolic blood pressure 80 mm[Hg] Tiago Floro CNM Work Phone: [facility] 11-15-2024 16:31-0400 Systolic blood pressure 120 mm[Hg] Tiago Floro CNM Work Phone: [facility] 11-08-2024 15:44-0400 Body mass index (BMI) [Ratio] 34.37 kg/m2 Tiago Floro CNM Work Phone: [facility] 11-08-2024 15:44-0400 Body weight 88 kg Tiago Floro CNM Work Phone: [facility] 11-08-2024 15:44-0400 Diastolic blood pressure 72 mm[Hg] Tiago Floro CNM Work Phone: [facility] 11-08-2024 15:44-0400 Systolic blood pressure 110 mm[Hg] Tiago Floro CNM Work Phone: [facility] 10-23-2024 17:03-0400 Body mass index (BMI) [Ratio] 33.48 kg/m2 Tiago Floro CNM Work Phone: [facility] 10-23-2024 17:03-0400 Body weight 85.73 kg Tiago Floro CNM Work Phone: [facility] 10-23-2024 17:03-0400 Diastolic blood pressure 80 mm[Hg] Tiago Floro CNM Work Phone: [facility] 10-23-2024 17:03-0400 Systolic blood pressure 118 mm[Hg] Tiago Floro CNM Work Phone: [facility] 08-29-2024 16:07-0500 Body mass index (BMI) [Ratio] 30.82 kg/m2 Tiago Floro CNM Work Phone: [facility] 08-29-2024 16:07-0500 Body weight 78.93 kg Tiago Floro CNM Work Phone: [facility] 08-29-2024 16:07-0500 Diastolic blood pressure 70 mm[Hg] Tiago Floro CNM Work Phone: [facility] 08-29-2024 16:07-0500 Systolic blood pressure 120 mm[Hg] Tiago Floro CNM Work Phone: [facility] 07-31-2024 18:16-0500 Body mass index (BMI) [Ratio] 30.29 kg/m2 Tiago Floro CNM Work Phone: [facility] 07-31-2024 18:16-0500 Body weight 77.56 kg Tiago Floro CNM Work Phone: [facility] 07-31-2024 18:16-0500 Diastolic blood pressure 80 mm[Hg] Tiago Floro CNM Work Phone: [facility] 07-31-2024 18:16-0500 Systolic blood pressure 120 mm[Hg] Tiago Floro CNM Work Phone: [facility] 05-29-2024 16:07-0400 Body mass index (BMI) [Ratio] 28.52 kg/m2 Tiago Floro CNM Work Phone: [facility] 05-29-2024 16:07-0400 Body weight 73.03 kg Tiago Floro CNM Work Phone: [facility] 05-29-2024 16:07-0400 Diastolic blood pressure 70 mm[Hg] Tiago Floro CNM Work Phone: [facility] 05-29-2024 16:07-0400 Systolic blood pressure 112 mm[Hg] Tiago Floro CNM Work Phone: [facility] 05-01-2024 13:43-0400 Body mass index (BMI) [Ratio] 28.87 kg/m2 Tiago Floro CNM Work Phone: [facility] 05-01-2024 13:43-0400 Body weight 73.94 kg Tiago Floro CNM Work Phone: [facility] 04-11-2024 10:56-0400 Body height 160 cm Karma Timmons MD Work Phone: [facility] 04-11-2024 10:56-0400 Body mass index (BMI) [Ratio] 28.87 kg/m2 Karma Timmons MD Work Phone: [facility] 04-11-2024 10:56-0400 Body weight 73.94 kg Karma Timmons MD Work Phone: [facility] 04-11-2024 10:56-0400 Diastolic blood pressure 70 mm[Hg] Karma Timmons MD Work Phone: [facility] 04-11-2024 10:56-0400 Heart rate 88 /min Karma Timmons MD Work Phone: [facility] 04-11-2024 10:56-0400 Respiratory rate 18 /min Karma Timmons MD Work Phone: [facility] 04-11-2024 10:56-0400 SaO2% (BldA) [Mass fraction] 100 % Karma Timmons MD Work Phone: [facility] 04-11-2024 10:56-0400 Systolic blood pressure 122 mm[Hg] Karma Timmons MD Work Phone: [facility] Encounters Encounter Date Encounter Type Care Provider Facility Start: 01-23-2025 End: 01-23-2025 ambulatory TIAGO L FLORO Not Available Start: 01-23-2025 End: 01-23-2025 care visit Tiago Cinthia Lewiso CNM Work Phone: [facility] Comment on above: Unwanted fertility ( Primary Dx); care following vaginal delivery ([facility]) Start: 12-26-2024 End: 12-26-2024 ambulatory TIAGO L FLORO Not Available Start: 12-26-2024 End: 12-26-2024 care visit Tiago L Floro CNM Work Phone: [facility] Comment on above: Acute cystitis witho ut hematuria (Primary Dx) Start: 12-15-2024 End: 12-15-2024 [facility] Result Encounter Tiago Lewiso CNM Work Phone: [facility] Unsolicited Start: 12-15-2024 End: 12-15-2024 [facility] Result Encounter Tiago Cinthia Lewiso CNM Work Phone: [facility] Unsolicited Start: 12-14-2024 End: 12-14-2024 [facility] Result Encounter Tiago Cinthia Lewiso CNM Work Phone: [facility] Unsolicited Start: 12-14-2024 End: 12-14-2024 [facility] Result Encounter Tiago Lewiso CNM Work Phone: [facility] Unsolicited Start: 12-11-2024 End: 12-11-2024 ambulatory TIAGO L FLORO Not Available Start: 12-08-2024 End: 12-08-2024 ambulatory TIAGO L FLORO Not Available Start: 12-05-2024 End: 12-05-2024 ambulatory TIAGO L FLORO Not Available Start: 12-05-2024 End: 12-05-2024 Subsequent care visit Tiago Cinthia Floro CNM Work Phone: [facility] Comment on above: Large for dates (Sade karma Dx); Encounter for care of first , third trimester Start: 12-05-2024 End: 12-05-2024 Bamboo flowsheet Tiago L Floro CNM Work Phone: [facility] Start: 12-05-2024 End: 12-05-2024 Bamboo flowsheet Tiago L Floro CNM Work Phone: [facility] Start: 11-29-2024 End: 11-29-2024 Subsequent care visit Tiago Cinthia Floro CNM Work Phone: [facility] [...] Start: 08-15-2024 End: 08-15-2024 Telephone encounter Melinda Cecilio HYDRO GENERATION MANAGER [facility] Start: 07-31-2024 End: 07-31-2024 [...] 05-01-2024 End: 05-01-2024 Initial care visit Tiago L Floro CNM Work Phone: [facility] Comment on above: GA: 8w0d Start: 05-01-2024 End: 05-01-2024 ambulatory TIAGO L FLORO Not Available Start: 04-11-2024 End: 04-11-2024 Bamboo [...] on above: Threatened in early (Primary Dx) Procedures Date Procedure Procedure Detail Performing Clinician Start: 05-16-2025 ALL CBC WITH AUTO DIFF Tiago L Floro CNM Work Phone: Start: 12-14-2024 Us uterus limited 1/> fetuses Tiago Kim CNM Work Phone: Start: 12-14-2024 [facility] UA (CLEAN/CATCH) MDS COORDINATOR/MICRO IF IND. Tiago Kim CNHossein Work Phone: Plan of Treatment Date Care Activity Detail Author Start: 05-01-2025 End: 05-01-2025 Patient encounter procedure 05/01/2025 2:00 PM EDT Office Visit [facility] [address] [place] [id number] Tiago Kim, CNM [address] [place] [address] [facility] Start: 04-02-2025 Influenza vaccination Influenz a Vaccine (Season Ended) [facility] Start: 01-29-2025 Influenza vaccination Influenza Vacc ine (#1) [facility] Comment on above: Postponed from 04/02 (Patient Refused) Start: 01-23-2025 End: 01-23-2025 ambulatory 01/23/2025 2:00 PM EDT Visit [facility] [address] [facility] [place] [phone] Tiago Kim, CN [address] [place] [address] [facility] Start: 12-14-2024 End: 12-14-2024 Patient encounter procedure 12/14/2024 3:30 PM EDT Routine [facility] [address] [facility] [place] [phone] Tiago Kim, CNM [address] [place] [address] [facility] Start: 12-14-2024 End: 12-14-2024 Professional / ancillary services management 12/14/2024 3:00 PM EDT Ancillary Procedure [facility] [address] [facility] [address] [place] [phone] [facility] Start: 12-11-2024 End: 12-11-2024 Patient encounter procedure 12/11/2024 4:30 PM EDT Routine [facility] [address] [facility] [place] [phone] Tiago Kim, CNM [address] [place] [address] [facility] Start: 12-08-2024 End: 12-08-2024 Professional / ancillary services management 12/08/2024 9:30 AM EDT Ancillary Procedure [facility] [address] [facility] [address] [place] [phone] [facility] Start: 12-05-2024 End: 12-05-2024 Patient encounter procedure 12/05/2024 4:30 PM EDT Routine [facility] [address] [facility] [place] [address] Tiago Kim, CNM [address] [place] [address] [facility] Start: 12-05-2024 End: 12-05-2025 [...] PM EDT Routine [facility] [address] [facility] [place] [address] Tiago Kim, CNM [address] [place] [address] [facility] Start: 11-15-2024 End: 11-15-2025 STREPTOCCOUS, GROUP B CULTURE STREPTOCCOUS, GROUP B CULTURE Lab Routine screening for streptococcus B Expected: 11/15/2024 (Approximate), Expires: 11/15/2025 [facility] Work Phone: Comment on above: Expected: 11/15/2024 (Approximate), Expires: 11/15/2025 Start: 11-07-2024 End: 11-07-2024 Patient encounter procedure 11/07/2024 4:30 PM EDT Routine [facility] [address] [facility] [place] [address] Tiago Kim, CNM [address] [place] [address] [facility] Start: 10-23-2024 End: 10-23-2024 Patient encounter procedure 10/23/2024 4:45 PM EDT Routine [facility] [address] [facility] [place] [address] Tiago Kim, CNM [address] [place] [address] [facility] Start: 09-21-2024 End: 09-21-2024 Patient encounter procedure 09/21/2024 2:30 PM EST Routine [facility] [address] [facility] [place] [address] Tiago Kim, CNM [address] [place] [address] [facility] Start: 08-29-2024 End: 08-29-2024 [...] 05/22/2024 9:30 AM EDT Office Visit [facility] [address] [facility] [address] [place] [phone] Mckenzie Hong, DIRECTOR CHEMISTRY-[facility] [address] [facility] [address] [place] [address] [facility] Start: 05-01-2024 End: 05-01-2025 Bacteria identified in Urine by Culture Urine culture Microbiology Routine Amenorrhea examination or test, positive result 8 weeks gestation of Expected: 05/01/2024 (Approximate), Expires: 05/01/[address] [facility] Healthcare Comment on above: Expected: 05/01/2024 (Approximate), Expires: 05/01/2025 Start: 05-01-2024 End: 05-01-2025 DRUG TOX MONITORIGN 6 W/ CONF,URINE DRUG TOX MONITORIGN 6 W/ CONF,URINE Lab Routine Amenorrhea examination or test, positive result 8 weeks gestation of Expected: 05/01/2024 (Approximate), Expires: 05/01/2025 [facility] Comment on above: Expected: 05/01/2024 (Approximate), Expires: 05/01/2025 Start: 05-01-2024 End: 05-01-2025 Neisseria gonorrhoeae DNA [Presence] in Cervical mucus by PAULINE with probe detection C. trachomatis / N. gonorrhoeae, DNA probe Pathology and Cytology Routine Amenorrhea examination or test, positive result 8 weeks gestation of Expected: 05/01/2024 (Approximate), Expires: 05/01/2025 [facility] Comment on above: Expected: 05/01/2024 (Approximate), Expires: 05/01/2025 Start: 05-01-2024 End: 05-01-2024 Professional / ancillary services management 05/01/2024 2:00 PM EDT Ancillary Procedure [facility] [address] [place] [address] [facility] Start: 05-01-2024 End: 05-01-2025 TSH W/REFLEX TO FT4 TSH W/REFLEX TO FT4 Lab Routine Amenorrhea examination or test, positive result 8 weeks gestation of Expected: 05/01/2024 (Approximate), Expires: 05/01/2025 [facility] Comment on above: Expected: 05/01/2024 (Approximate), Expires: 05/01/2025 Start: 05-01-2024 End: 05-01-2025 URINALYSIS MICROSCOPIC URINALYSIS MICROSCOPIC Lab Routine Amenorrhea examination or test, positive result 8 weeks gestation of Expected: 05/01/2024 (Approximate), Expires: 05/01/2025 [facility] Comment on above: Expected: 05/01/2024 (Approximate), Expires: 05/01/2025 Start: 05-01-2024 End: 05-01-2024 ambulatory [facility] Comment on above: Arrived Start: 04-11-2024 End: 04-11-2025 HCG, quantitative, HCG, quantitative, Lab Routine Threatened in early Expected: 04/11/2024 (Approximate), Expires: 04/11/2025 [facility] Work Phone: Comment on above: Expected: 04/11/2024 (Approximate), Expires: 04/11/2025 Start: 04-02-2024 Influenza vaccination Influenza Vacc ine (#1) [facility] ABO/Rh ABO/Rh Lab Routi ne Amenorrhea examination or test, positive result 8 weeks gestation of Ordered: 05/01/2024 [facility] Comment on above: Ordered: 05/01/2024 Antibody screen Antibody screen Lab Routine Amenorrhea examination or test, positive result 8 weeks gestation of Ordered: 05/01/2024 [facility] Comment on above: Ordered: 05/01/2024 CBC panel - Blood by Automated count CBC Lab Routine Amenorrhea examination or test, positive result 8 weeks gestation of Ordered: 05/01/2024 [facility] Comment on above: Ordered: 05/01/2024 Hemoglobin A1c/Hemoglobin.total in Blood Hemoglobin A1c Lab Routine Amenorrhea examination or test, positive result 8 weeks gestation of Ordered: 05/01/2024 [facility] Comment on above: Ordered: 05/01/2024 Hepatitis B virus surface Ag [Presence] in Serum or Plasma by Immunoassay Hepatitis B surface antigen Lab Routine Amenorrhea examination or test, positive result 8 weeks gestation of Ordered: 05/01/2024 [facility] Work Phone: Comment on above: Ordered: 05/01/2024 Hepatitis C virus Ab [Presence] in Serum or Plasma by Immunoassay Hepatitis C antibody Lab Routine Amenorrhea examination or test, positive result 8 weeks gestation of Ordered: 05/01/2024 [facility] Comment on above: Ordered: 05/01/2024 HIV-1/HIV-2 antigen/antibody combination immunoassay HIV-1 and HIV-2 antibodies Lab Routine Amenorrhea examination or test, positive result 8 weeks gestation of Ordered: 05/01/2024 [facility] Comment on above: Ordered: 05/01/2024 Reagin Ab [Presence] in Serum by RPR RPR Lab Routine Amenorrhea examination or test, positive result 8 weeks gestation of Ordered: 05/01/2024 [facility] Comment on above: Ordered: 05/01/2024 Rubella antibody, IgG Rubella an tibody, IgG Lab Routine Amenorrhea examination or test, positive result 8 weeks gestation of Ordered: 05/01/2024 [facility] Comment on above: Ordered: 05/01/2024 Immunizations Immunization Date Immunization Notes Care Provider Fa cili 03-10-2021 meningococcal oligosaccharide (groups A, C, Y and W-135) diphtheria toxoid conjugate vaccine (MCV4O) Karma Timmons MD Work Phone: [facility] 03-23-2016 meningococcal oligosaccharide (groups A, C, Y and W-135) diphtheria toxoid conjugate vaccine (MCV4O) Karma Timmons MD Work Phone: [facility] 03-23-2016 tetanus toxoid, redu lu diphtheria toxoid, and acellular pertussis vaccine, adsorbed Karma Timmons MD Work Phone: [facility] 03-23-2016 varicella virus vaccine Karma Timmons MD Work Phone: [facility] 04-18-2009 diphtheria, tetanus toxoids and acellular pertussis vaccine Karma Timmons MD Work Phone: [facility] 03-23-2008 measles, mumps and r ubella virus vaccine Karma Timmons MD Work Phone: [facility] 03-23-2008 poliovirus vaccine, inactivated Karma Timmons MD Work Phone: [facility] 07-20-2005 diphtheria, tetanus toxoids and acellular pertussis vaccine Karma Timmons MD Work Phone: [facility] 07-20-2005 measles, mumps and r ubella virus vaccine Karma Timmons MD Work Phone: [facility] 07-20-2005 poliovirus vaccine, inactivated Karma Timmons MD Work Phone: [facility] 07-03-2004 pneumococcal conjuga te vaccine, 7 valent Karma Timmons MD Work Phone: [facility] 07-03-2004 varicella virus vaccine Karma Timmons MD Work Phone: [facility] 02-15-2004 diphtheria, tetanus toxoids and acellular pertussis vaccine Karma Timmons MD Work Phone: [facility] 02-15-2004 pneumococcal conjuga te vaccine, 7 valent Karma Timmons MD Work Phone: [facility] 2003 DTaP-hepatitis B and poliovirus vaccine Karma Timmons MD Work Phone: [facility] 2003 pneumococcal conjuga te vaccine, 7 valent Karma Timmons MD Work Phone: [facility] 2003 DTaP-hepatitis B and poliovirus vaccine Karma Timmons MD Work Phone: [facility] 2003 pneumococcal conjuga te vaccine, 7 valent Karma Timmons MD Work Phone: [facility] Healthcare 2003 hepatitis B vaccine, pediatric or pediatric/adolescent dosage Karma Timmons MD Work Phone: [facility] Healthcare Payers Date Payer Category Payer Medicaid [facility] [employer] [place] [id number] 2022-Present [address] [place] [address] [id number] 2022 Private Health Insurance [id number] 2022 Medicaid [id number] 2022 Private Health Insurance [id number] 2003 Unknown [id number] 2.16.840.1.580287.3.579.2. 1259 2003 Unknown [id number] 2.16.840.1.761577.3.579.2. 1259 2003 Unknown [id number] 2.16.840.1.036522.3.579.2. 1259 2003 Unknown [id number] 2.16.840.1.246478.3.579.2. 1259 2003 Unknown [id number] 2.16.840.1.795947.3.579.2. 1259 2003 Unknown [id number] 2.16.840.1.028958.3.579.2. 1259 2003 Unknown [id number] 2.16.840.1.486606.3.579.2. 1259 2003 Unknown [id number] 2.16.840.1.897620.3.579.2. 1259 2003 Unknown [id number] 2.16.840.1.908837.3.579.2. 1259 2003 Unknown [id number] 2.16.840.1.609182.3.579.2. 1259 2003 Unknown [id number] 2.16.840.1.132298.3.579.2. 1259 2003 Unknown [id number] 2.16.840.1.776302.3.579.2. 1259 2003 Unknown [id number] 2.16.840.1.991334.3.579.2. 1259 2003 Unknown [id number] 2.16.840.1.280381.3.579.2. 1259 2003 Unknown [id number] 2.16.840.1.505008.3.579.2. 1259 2003 Unknown [id number] 2.16.840.1.465535.3.579.2. 1259 2003 Unknown [id number] 2.16.840.1.947206.3.579.2. 1259 2003 Unknown [id number] 2.16.840.1.106985.3.579.2. 1259 2003 Unknown [id number] 2.16.840.1.469447.3.579.2. 1259 Social History Date Type Detail Facility Start: 03-18-2023 Tobacco smoking stat [facility] Never smoked tobacco [facility] Start: 03-18-2023 Tobacco use and exposure Smokeless t obacco non-user [facility] Start: 05-01-2024 End: 01-23-2025 Alcoholic beverage intake Lifetime non-drinker (finding) [facility] Start: 05-01-2024 End: 12-18-2024 History of Social function [facility] Start: 05-01-2024 End: 12-18-2024 Tobacco use panel [facility] Start: 02-17-2023 Alcohol Comment Caffeine: occasional pop [facility] Start: 03-20-2024 [facility] Start: 2003 Sex assigned at Not on file [facility] Clinical Notes 04-11-2024 to 01-23-2025 Tiago Kim CNM - 01/23/2025 2:00 PM EDGrant Kim CNM - 12/26/2024 11:30 AM Hermila Kim CNM - 12/05/2024 4:30 PM Hermila Kim CNM - 11/29/2024 4:30 PM EDT Note Date & Type Note Facility 01-23-2025 History of Presen t illness Narrative Nani Choi is here for visit. She is 6 weeks . Complaints: has no unusual complaints Weeks at delivery: 40 week Type of delivery: Vaginal, Spontaneous Delivery; Gender: female Baby is healthy: yes Breast or bottle feeding: breast Complaints or complications: no complications mood: well EPDS score at 6 weeks pp Contraception: Resumed Sexual activity: no Resumed Menses: no EXAM: GENERAL APPEARANCE: alert, well appearing, in no apparent distress ASSESSMENT/PLAN: There are no diagnoses linked to this encounter. normal exam documented in this encounter [facility] 12-26-2024 History of Presen t illness Narrative Nani Choi is here for visit. She is 2 weeks . Complaints: has no unusual complaints Weeks at delivery: 40 week Type of delivery: Vaginal, Spontaneous Delivery; Gender: female Baby is healthy: yes Breast or bottle feeding: breast and bottle Complaints or complications: no complications mood: well Contraception: none Resumed Sexual activity: no Resumed Menses: no EXAM: Speculum exam performed. Sutures intact, episiotomy sight is well approximated and healing. No bleeding, odor noted. Patient to continue with kathy bottle wash, tucks, witch juliet and dermoplast spray. ASSESSMENT/PLAN: There are no diagnoses linked to this encounter. normal exam documented in this encounter [facility] 12-05-2024 History of Presen t illness Narrative [...] a routine visit. documented in this encounter [facility] 11-29-2024 History of Presen t illness Narrative [...] a routine visit. documented in this encounter [facility] 11-22-2024 History of Presen t illness Narrative [...] a routine visit. documented in this encounter [facility] 11-15-2024 History of Presen t illness Narrative [...] a routine visit. documented in this encounter [facility] 11-08-2024 History of Presen t illness Narrative [...] goes away. 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 I also demonstrated some stretches for [...] a routine visit. documented in this encounter [facility] 10-23-2024 History of Presen t illness Narrative [...] a routine visit. documented in this encounter [facility] 08-29-2024 History of Presen t illness Narrative [...] all orders for this visit: Anxiety, generalized ([facility]) Encounter for supervision of other normal , second trimester Continue vitamin. Labs reviewed. Rhogam GTT at 28 weeks Follow up in 2 weeks for a routine visit. documented in this encounter [facility] 08-15-2024 Telephone encount er Note 10% co pay with unlimited visits after deductible is met Deductible is 1000/2000 and 0 is met Out of pocket 2500/5000 and 0 is met Pt will callback to schedule [facility] 08-15-2024 Miscellaneous Notes Formattin g of this note might be different from the original. 10% co pay with unlimited visits after deductible is met Deductible is 1000/2000 and 0 is met Out of pocket 2500/5000 and 0 is met Pt will callback to schedule documented in this encounter [facility] 07-31-2024 History of Presen t illness Narrative [...] a routine visit. documented in this encounter [facility] 07-28-2024 Telephone encount er Note Ignacia Galloway called - a fax that was sent today didn't go over correctly - it needs re-sent . I didn't see anything recent or any notes as to what it was or I would have . Ty [facility] 07-28-2024 Miscellaneous Notes Formattin g of this note might be different from the original. Ignacia Galloway called - a fax that was sent today didn't go over correctly - it needs re-sent . I didn't see anything recent or any notes as to what it was or I would have . Ty documented in this encounter [facility] 05-29-2024 History of Presen t illness Narrative [...] a routine visit. documented in this encounter [facility] 05-01-2024 History of Presen t illness Narrative [...] also given office phone number and [facility] number to call in case of an emergency or after hours needs. PVU and all questions answered. We did discuss place of delivery. Patient should plan to go to [facility] for all services unless an emergency and they need to go to the closest ER. We can make other arrangements possibly if patient would like to deliver at another facility but I did explain I am now at [place] 100% of the time and would like to do all deliveries there. documented in this encounter [facility] 04-11-2024 History of Presen t illness Narrative Nani Choi is a 18 y.o. female presents with chief complaint of Hospital Follow-up (Patient presents today for ER follow up from [facility]. Patient was in ER on 04/06/24. Patient [...] Flowsheet Row Office Visit from 04/11/2024 in [facility] with Karma Timmons MD Hospital Information Discharged To: Home Setting Discharge Hospital [facility] Discharge Date 04/06/24 Engagement Call Start Time [...] (ELAVIL) 25 mg, Oral, Nightly levonorgestrel-ethinyl estradiol (Shahbaz Lindere, Lessina) 0.1-20 MG-MCG tablet 1 tablet, Oral, Daily ALLERGIES: Allergies Allergen Reactions Charlotte Extract SURGICAL HISTORY: Past Surgical History: Procedure [...] in 3 weeks documented in this encounter [facility] Healthcare Evaluation note Diagnosis 12 weeks gestation [...] third trimester [facility] Diagnosis Acute cystitis without hematuria- Primary [facility] Diagnosis Unwanted fertility- Primary care following vaginal delivery ([facility]) [facility]* Maternity Services (Routine) - Closed Specialty Diagnoses / Procedures Referred By Elly suazo Referred To Contact Obstetrics and Gynecology Diagnoses examination or test, positive result 8 weeks gestation of Procedures MI OFFICE/OUTPATIENT NEW HIGH MDM 60 MINUTES Tiago Kim, GULSHANM [address] [place] [address] Phone: tel: fax: Tiago Kim, GULSHANM [address] [place] [address] Phone: tel: fax: Referral ID Status Reason Start Date Expiration Date V [facility] Requested Visits Authorized [id number] Closed Specialty Services Required 05/01/2024 10/28/2024 1 1 [facility] Healthcare Reason for Referral Specialty Diagnoses / Procedures Referred By Elly t Referred To Contact Obstetrics and Gynecology Diagnoses examination or test, positive result 8 weeks gestation of Procedures MI OFFICE/OUTPATIENT NEW HIGH MDM 60 MINUTES Tiago Kim, GULSHANM [address] [place] [address] Tiago Kim, GULSHANM [address] [place] [address] Referral ID Status Reason Start Date Expiration Date Visits Requested Visits Authorized [id number] Pending Review Specialty Services Required 05/01/2024 10/28/2024 1 1 Summary Purpose Family History No Family History Records Found Advance Directives No Advanced Directives Records Found Additional Source Comments Care Teams (unrecognized sec tion and content) Silversmith Apprentice Relationship Specialty Start Date End Date Karma Timmons MD [address] [facility] [place] [address] PCP - General Family Medicine 02/18/23 Silversmith Apprentice Relationship Specialty Start Date End Date Karma Timmons MD [address] [facility] [place] [address] PCP - General Family Medicine 02/18/23 Silversmith Apprentice Relationship Specialty Start Date End Date Karma Timmons MD [address] [facility] [place] [address] PCP - General Family Medicine 02/18/23 Silversmith Apprentice Relationship Specialty Start Date End Date Karma Timmons MD [address] [facility] [place] [address] PCP - General Family Medicine 02/18/23 Silversmith Apprentice Relationship Specialty Start Date End Date Karma Timmons MD [address] [facility] [place] [address] PCP - General Family Medicine 02/18/23 Silversmith Apprentice Relationship Specialty Start Date End Date Karma Timmons MD [address] [facility] [place] [address] PCP - General Family Medicine 02/18/23 Silversmith Apprentice Relationship Specialty Start Date End Date Karma Timmons MD [address] [facility] [place] [address] PCP - General Family Medicine 02/18/23 Silversmith Apprentice Relationship Specialty Start Date End Date Karma Timmons MD [address] [facility] [place] [address] PCP - General Family Medicine 02/18/23 Silversmith Apprentice Relationship Specialty Start Date End Date Karma Timmons MD [address] [facility] [place] [address] PCP - General Family Medicine 02/18/23 Silversmith Apprentice Relationship Specialty Start Date End Date Karma Timmons MD [address] [facility] [place] [address] PCP - General Family Medicine 02/18/23 Silversmith Apprentice Relationship Specialty Start Date End Date Karma Timmons MD [address] [facility] [place] [address] PCP - General Family Medicine 02/18/23 Silversmith Apprentice Relationship Specialty Start Date End Date Karma Timmons MD [address] [facility] [place] [address] PCP - General Family Medicine 02/18/23 Silversmith Apprentice Relationship Specialty Start Date End Date Karma Timmons MD [address] [facility] [place] [address] PCP - General Family Medicine 02/18/23 Silversmith Apprentice Relationship Specialty Start Date End Date Karma Timmons MD [address] [facility] [place] [address] PCP - General Family Medicine 02/18/23 Reason for Visit (unrecogniz ed section and content) Reason Comments Hospital Follow-up Patient presents tod keira for ER follow up from [facility]. Patient was in ER on 04/06/24. Patient states that she went to the ER to make sure that she wasn't having an ectopic . Patient is currently 4 weeks . Patient was having pain in lower left abdomen. Reason Comments Initial Visit Reason Comments Care INFORMATION SOURCE (unrecogn ized section and content) DATE CREATED AUTHOR 01/28/2025 [facility] FOR RECORDS PERTAINING TO PATIENTS WHO ARE [...] BE BASED ON THE PRIMARY CLINICAL RECORDS. [employer] provides no warranty or guarantee of the accuracy or completeness of information in this document.
--- NOTE | 2025-04-03 15:06 | PC.NURSE ---
pt c/o all over chest pain on and off for the last 3 days pt also adds this comes while driving her car not with excursion. appellate court clerk in place.
[2025-04-03 15:11] LABS: Hematocrit 39.8 % (36.0-48.0); Hemoglobin 12.8 g/dL (12.0-16.0); Immature Granulocytes Abs Auto 0.02 10^3/uL (0.00-0.03); Immature Granulocytes Pct Auto 0.3 % (0.0-0.5); Lymphocytes Absolute Auto 1.9 10^3/uL (1.2-3.8); Mean Corpuscular HGB Conc 32.2 g/dL (29.9-35.2); Mean Corpuscular Hemoglobin 26.2 pg (26.7-34.0); Mean Corpuscular Volume 81.6 fL (81.0-99.0); Platelet Count 323 10^3/uL (150-450); Red Blood Count 4.88 10^6/uL (4.20-5.40); White Blood Count 7.1 10^3/uL (4.0-11.0)
[2025-04-03] MEDS: 0.9 % SODIUM CHLORIDE 500 ML IV (15:26)
[2025-04-03 15:32] LABS: Alanine Aminotransferase 21 U/L (14-59); Albumin Globulin Ratio 0.9; Albumin Level 3.7 g/dL (3.4-5.0); Alkaline Phosphatase 125 U/L (46-116); Anion Gap 13.1; Aspartate Amino Transferase 12 U/L (15-37); Blood Urea Nitrogen 12.0 mg/dL (7.0-18.0); Calcium 9.4 mg/dL (8.5-10.1); Carbon Dioxide 26.0 mmol/L (21.0-32.0); Chloride 106 mmol/L (98-107); Estimated GFR (African America >60 (>=60 mL/min/1.73m^2); Estimated GFR (Non-African Ame >60 (>=60 mL/min/1.73m^2); Globulin 4.2 g/dL; Glucose 91 mg/dL (74-106); Potassium 4.1 mmol/L (3.5-5.1); Sodium 141 mmol/L (136-145); Total Protein 7.9 g/dL (6.4-8.2)
[2025-04-03 15:34] LABS: NT Pro B Type Natriuretic Pept 18.0 pg/mL (<=450.0)
== END 2025-04-03 16:52 | disposition home or self-care (01) ==
PROVIDERS: Nurse Practitioner Family; Emergency Provider Student in an Organized Health Care Education/Training Program; Family Provider Family Medicine; PCP Family Medicine
DX: R00.2 Palpitations (principal); R06.00 Dyspnea, unspecified
CPT/HCPCS: 36415; 71275; 80053; 83880; 84484; 84703; 85025; 93005; 99285; Q9967

== ENCOUNTER 2025-05-15 15:18 | Emergency (ER) | payer OTHER, SELFPAY ==
--- OUTSIDE RECORDS SUMMARY | 2025-05-01 14:00 | XMS_ITS | Encounter Summary ---
Author Organization [facility] Address [address] [place] [address] Care Team Providers Care Decorative Engraver Name Role Phone Karma Timmons MD Primary Care Provider [phone] Reason for Referral * Behavioral Health - Outpatient (Routine) - Authorized Specialty Diagnoses / Procedures Referred By Elly t Referred To Contact Behavioral Health Diagnoses Anxiety, generalized Procedures OR OFFICE/OUTPATIENT NEW HIGH MDM 60 MINUTES Adrianna Kim CNM [address] [place] [address] Phone: tel: fax: Moises Lindo LPC Referral ID Status Reason Start Date Expiration Date Visits Requested Visits Authorized [id number] Authorized Specialty Services Required 05/01/2025 10/28/2025 1 1 Reason for Visit * Reason Comments Follow-up Encounter Details Date Type Department Care Team (Late st Contact Info) Description 05/01/2025 2:00 PM EDT Office Visit [facility] [address] [place] [id number] Adrianna Kim CNM [address] [place] [address] Unwanted fertility (Primary Dx); Anxiety, generalized Social History Tobacco Use Types Packs/Day Years [...] on file documented as of this encounter Last Filed Vital Signs Vital Sign Reading Time Taken Comments Blood Pressure 110/70 05/01/2025 2:16 PM EDT Pulse - - Temperature - - Respiratory Rate - - Oxygen Saturation - - Inhaled Oxygen Concentration - - Weight 85.7 kg (189 lb) 05/01/2025 2:16 PM EDT Height - - Body Mass Index 33.48 04/11/2024 10:56 AM EDT documented in this encounter Plan of Treatment Upcoming Encounters Date Type Department Care Team (Late st Contact Info) Description 05/28/2025 2:30 PM EDT Social Work [facility] [address] [place] [address] Moises Lindo LPC 06/13/2025 2:00 PM EST Office Visit [facility] OBE[facility] [address] [place] [address] Adrianna Kim, GULSHANM [address] [place] [address] Scheduled Referrals Name Type Priority Associated Diagnoses Orde r Schedule Ambulatory referral to Behavioral Health Outpatient Referral Routine Anxiety, generalized Expected: 05/01/2025 (Approximate), Expires: 10/29/2025 documented as of this encounter Visit Diagnoses Diagnosis Unwanted fertility- Primary Anxiety, generalized documented in this encounter Additional Health Concerns Assessment Noted Time PHQ-9 Depression Total Score: 14 024 10:00 AM EDT documented as of this encounter Care Teams Decorative Engraver Relationship Specialty Start Date End Date Karma Timmons MD [address] [place], [place] [id number] PCP - General Family Medicine 02/18/23 documented as of this encounter
[2025-05-15] VITALS (9 sets, daily range): BP systolic 134; BP diastolic 83; PULSE 70–84; TEMP 36.8; O2SAT 97–98; BMI 31.9
--- OUTSIDE RECORDS SUMMARY | 2025-05-15 15:29 | XMS_ITS | Encounter Summary ---
Author Organization [facility] Address [address] [place] [address] Care Team Providers Care Chemical Production Technician Name Role Phone Karma Timmons MD Primary Care Provider [phone] Encounter Details Date Type Department Care Team (Late Contact Info) Description 03/11/2023 Abstract [facility] [address] [place] [id number] Filiberto Brunson DO [address] [place] [address] Social History Tobacco Use Types Packs/Day Years [...] Department Care Team (Late Contact Info) Description 05/28/2025 2:30 PM EDT Social Work [facility] [address] [place] [address] Moises Lindo LPC 06/13/2025 2:00 PM EST Office Visit [facility] [address] [place] [address] Adrianna Kim, GULSHAN [address] [place] [address] documented as of this encounter Visit Diagnoses Not on filedocumented in this encounter Care Teams Chemical Production Technician Relationship Specialty Start Date End Date Karma Timmons MD [address] [place], [place] [id number] PCP - General Family Medicine 02/18/23 documented as of this encounter
--- OUTSIDE RECORDS SUMMARY | 2025-05-15 15:29 | XMS_ITS | Encounter Summary ---
Author Organization [facility] Address [address] [place] [address] Care Team Providers Care Asphalt Tamper Name Role Phone Karma Timmons MD Primary Care Provider [phone] Encounter Details Date Type Department Care Team (Late Contact Info) Description 12/14/2024 Results Follow-Up [facility] [address] [place] [address] Adrianna Kim, CN [address] [place], [place] [id number] [facility] UA (CLEAN/CATCH) GRANULATOR MACHINE OPERATOR/MICRO IF IND. Social History Tobacco Use Types [...] [facility] [address] [facility] [address] [place] [address] Moises Lindo LPC 06/13/2025 2:00 PM EST Office Visit [facility] [address] [place] [address] Adrianna Kim, CN [address] [place] [address] documented as of this encounter Visit Diagnoses Not on filedocumented in this encounter Additional Health Concerns Assessment Noted Time PHQ-9 Depression Total Score: 14 024 10:00 AM EDT documented as of this encounter Care Teams Asphalt Tamper Relationship Specialty Start Date End Date Karma Timmons MD [address] [place] [address] PCP - General Family Medicine 02/18/23 documented as of this encounter
--- OUTSIDE RECORDS SUMMARY | 2025-05-15 15:29 | XMS_ITS | Encounter Summary ---
Author Organization [facility] Address [address] [place] [address] Care Team Providers Care Dog Food Dough Mixer Name Role Phone Karma Timmons MD Primary Care Provider [phone] Encounter Details Date Type Department Care Team (Latest Contact Info) Description 12/11/2024 Results Follow-Up [facility] [address] [place] [address] Adrianna Kim, CN [address] [place], [place] [phone] OB follow up transabdominal approach Social History [...] Behavioral Health [address] [place] [address] Moises Lindo LPC 06/13/2025 2:00 PM EST Office Visit [facility] [address] [place] [address] Adrianna Kim CNM [address] [place] [address] documented as of this encounter Visit Diagnoses Not on filedocumented in this encounter Additional Health Concerns Assessment Noted Time PHQ-9 Depression Total Score: 14 01/24/ 024 10:00 AM EDT documented as of this encounter Care Teams Dog Food Dough Mixer Relationship Specialty Start Date End Date Karma Timmons MD [address] [place], [place] [address] PCP - General Family Medicine 02/18/23 documented as of this encounter
--- OUTSIDE RECORDS SUMMARY | 2025-05-15 15:29 | XMS_ITS | Encounter Summary ---
Author Organization [facility] Address [address] [place] [address] Care Team Providers Care Resistance Brazer Name Role Phone Karma Timmons MD Primary Care Provider [phone] Encounter Details Date Type Department Care Team (Late Contact Info) Description 03/05/2023 Abstract [facility] [address] [place] [address] Karma Timmons MD [address] [place], [place] [id number] Social History Tobacco Use Types Packs/Day Years [...] Behavioral Health [address] [place] [phone] Moises Lindo LPC 06/13/2025 2:00 PM EST Office Visit [facility] [address] [place] [address] Adrianna Kim CNM [address] [place], [place] [id number] documented as of this encounter Visit Diagnoses Not on filedocumented in this encounter Care Teams Resistance Brazer Relationship Specialty Start Date End Date Karma Timmons MD [address] [place] [address] PCP - General Family Medicine 02/18/23 documented as of this encounter
--- OUTSIDE RECORDS SUMMARY | 2025-05-15 15:29 | XMS_ITS | Encounter Summary ---
Author Organization [facility] Address [address] [place] [address] Care Team Providers Care Aircraft Painter Name Role Phone Karma Timmons MD Primary Care Provider [phone] Encounter Details Date Type Department Care Team ([facility] Contact Info) Description 04/13/2023 Abstract [facility] [address] [place] [address] Karma Timmons MD [address] [place], [place] [phone] Social History Tobacco Use Types Packs/Day Years [...] Behavioral Health [address] [place] [phone] Moises Lindo LPC 06/13/2025 2:00 PM EST Office Visit [facility] [address] [place] [address] Adrianna Kim, GULSHANM [address] [place], [place] [phone] documented as of this encounter Visit Diagnoses Not on filedocumented in this encounter Care Teams Aircraft Painter Relationship Specialty Start Date End Date Karma Timmons MD [address] [place] [address] PCP - General Family Medicine 02/18/23 documented as of this encounter
--- OUTSIDE RECORDS SUMMARY | 2025-05-15 15:29 | XMS_ITS | Encounter Summary ---
Author Organization [facility] Address [address] [place] [address] Care Team Providers Care Mail Carrier Name Role Phone Laura Canales MD Primary Care Provider [phone] Encounter Details Date Type Department Care Team (Late st Contact Info) Description 08/10/2024 Clinisync Result Encounter [facility] External Department Unsolicited Tiago Kim CNM [address] [place], [place] [phone] Social History Tobacco Use Types Packs/Day Years [...] Social Work [facility] [address] [facility] [address] [place] [address] Moises Lindo LPC 06/13/2025 2:00 PM EST Office Visit [facility] [address] [place] [address] Tiago Kim CNM [address] [place], [place] [phone] documented as of this encounter Procedures Procedure Name Priority Date/Time Associated Diagnosis Comments US OB ANATOMY 08/10/2024 7:19 AM EST documented in this encounter Results * US OB ANATOMY (08/10/2024 7:19 AM EST) Anatomical Region Laterality Modality Other 08/10/2024 7:19 AM EST Narrative 08/10/2024 7:21 AM EST The [address] [address] Ultrasound Report Signed Patient: NANI ARENAS MR#: [id number] : 2005 Acct:[id number] Age/Sex: 19 / F ADM Date: 08/09/24 Loc: US Attending Dr: TIAGO KIM APRN, CNM Ordering Physician: TIAGO KIM APRN, CNM Date of Service: 08/09/24 Procedure(s): US OB anatomy Accession Number(s): [id number] cc: LAURA CANALES ; TIAGO KIM APRN, CNM The [address] [address] Patient Name: NANI ARENAS MRN: [id number] date: 2005 Sex: F Assigned Patient Location: US Current Patient Location: Accession/Order Number: [id number] Exam Date: 08/09/2024 19:25 Report Date: 08/10/2024 [...] Dictated By: Lisa Ramsey M.D. Signed By: 08/10/2421 DD/ 8 TD/TT: Gravure Printing Machinist: Procedure Note Radiology, Radiologist, - 08/10/[address] [address] Ultrasound Report Signed Patient: NANI ARENAS RMR#: [id number] : 2005Acct:[id number] Age/Sex: 19 / FADM Date: 08/09/24 Loc: US Attending Dr: TIAGO KIM APRN, CNM Ordering Physician: TIAGO KIM APRN, CNM Date of Service: 08/09/24 Procedure(s): US OB anatomy Accession Number(s): [id number] cc: LAURA CANALES ; TIAGO KIM APRN, CNM The [address] [address] Patient Name: NANI ARENAS MRN: [facility]:[id number] date: 2005 Sex: F Assigned Patient Location: US Current Patient Location: Accession/Order Number: [id number] Exam Date: 08/09/2024 19:25 Report Date: 08/10/2024 [...] 07:19 Dictated By: Lisa Ramsey M.D. Signed By:08/10/2421 DD/ 8 TD/TT: [employer] Printing Machinist: us Tiago Kim CNM [facility] Final Resu lt documented in this encounter Visit Diagnoses Not on filedocumented in this encounter Additional Health Concerns Assessment Noted Time PHQ-9 Depression Total Score: 14 024 10:00 AM EDT documented as of this encounter Care Teams Mail Carrier Relationship Specialty Start Date End Date Laura Canales MD [address] [place] [address] PCP - General Family Medicine 02/18/23 documented as of this encounter
--- OUTSIDE RECORDS SUMMARY | 2025-05-15 15:29 | XMS_ITS | Encounter Summary ---
Author Organization [facility] Address [address] [place] [address] Care Team Providers Care Back Hoe Operator Name Role Phone Karma Timmons MD Primary Care Provider [phone] Encounter Details Date Type Department Care Team (Late Contact Info) Description 05/01/2025 Bamboo flowsheet [facility] [address] [place] [address] Adrianna Kim CN [address] [place], [place] [phone] Social History Tobacco Use Types Packs/Day Years [...] Behavioral Health [address] [place] [address] Moises Lindo LPC 06/13/2025 2:00 PM EST Office Visit [facility] [address] [place] [address] Adrianna Kim CNM [address] [place] [address] documented as of this encounter Visit Diagnoses Not on filedocumented in this encounter Additional Health Concerns Assessment Noted Time PHQ-9 Depression Total Score: 14 024 10:00 AM EDT documented as of this encounter Care Teams Back Hoe Operator Relationship Specialty Start Date End Date Karma Timmons MD [address] [place], [place] [phone] PCP - General Family Medicine 02/18/23 documented as of this encounter
--- OUTSIDE RECORDS SUMMARY | 2025-05-15 15:29 | XMS_ITS | Clinical Summary ---
Author Organization [facility] Healthcare Address [address] [place] [address] Care Team Providers Care Wheat Farmer Name Role Phone Karma Timmons MD Primary Care Provider [phone] Allergies Active Allergy Reactions Criticality Noted Date Comments [employer] Extract 10/15/2020 Medications ferrous sulfate 325 (65 Fe) MG tablet Take 325 mg by mouth in the morning. Take with meals. Active norethindrone (Micronor) 0.35 MG tabletIndication s:Unwanted fertility Take 1 tablet (0.35 mg) by mouth Daily 90 tablet 3 5 Active norgestimate-eth inyl estradiol (Sprintec 28) 0.25-35 MG-MCG tabletIndication s:Unwanted fertility Take 1 tablet by mouth Daily 90 tablet 2 5 07/30/20 25 Active sertraline (Zoloft) 50 MG tabletIndication s:Anxiety, generalized Take 0.5 tablets (25 mg) by mouth Daily 15 tablet 5 05/31/20 25 Active docusate sodium (Colace) 100 MG capsule Take 100 mg by mouth in the morning and 100 mg before bedtime. 05/01/20 25 Discontinu ed(Therapy completed) Active Problems Problem Noted Date Diagnosed Date Anxiety 12/21/2023 Chronic cluster headache, not intractable 2023 Menorrhagia with regular cycle 12/21/2023 Migraine without aura and wi thout status migrainosus, not intractable 12/21/2023 Tachycardia 12/21/2023 PTSD (post-traumatic stress disorder) 03/29/2023 Encounters Date Type Department Care Team Description 05/01/2025 2:00 PM EDT Office Visit [facility] [address] [place] [address] Adrianna Kim CNM Unwanted fertility (Primary Dx); Anxiety, generalized 05/01/2025 Bamboo flowsheet [facility] [address] [place] [address] Adrianna Kim CNM from Last 3 Months Immunizations Immunization Administration [...] Pressure 110/70 05/01/2025 2:16 PM EDT Pulse 88 04/11/2024 10:56 AM EDT Temperature - - Respiratory Rate 18 04/11/2024 10:56 AM EDT Oxygen Saturation 100% 04/11/2024 10:56 AM EDT Inhaled Oxygen Concentration - - Weight 85.7 kg (189 lb) 05/01/2025 2:16 PM EDT Height 160 cm (5' 3 ) 04/11/2024 10:56 AM EDT Body Mass Index 33.48 04/11/2024 10:56 AM EDT Plan of Treatment Upcoming Encounters Date Type Department Care Team (Late st Contact Info) Description 05/28/2025 2:30 PM EDT Social Work [facility] [address] [place] [address] DennyMoises white LPC 06/13/2025 2:00 PM EST Office Visit [facility] [address] [place] [address] Adrianna Kim CNM [address] [place], [place] [phone] Health Maintenance Due Date Last Done Comments Influenza Vaccine (#1) 2025 Insurance [facility] Care Teams Wheat Farmer Relationship Specialty Start Date End Date Karma Timmons MD [address] [place] [address] PCP - General Family Medicine 02/18/23
--- OUTSIDE RECORDS SUMMARY | 2025-05-15 15:29 | XMS_ITS | Encounter Summary ---
Author Organization [facility] Address [address] [place] [address] Care Team Providers Care Water Rights Specialist Name Role Phone Karma Timmons MD Primary Care Provider [phone] Encounter Details Date Type Department Care Team ([facility] Contact Info) Description 05/28/2023 Abstract [facility] [address] [place] [address] Karma Timmons MD [address] [place], [place] [address] Social History Tobacco Use Types Packs/Day Years [...] Upcoming Encounters Date Type Department Care Team ([facility] Contact Info) Description 05/28/2025 2:30 PM EDT Social Work [facility] [address] [place] [address] Moises Lindo LPC 06/13/2025 2:00 PM EST Office Visit [facility] [address] [place] [address] Adrianna Kim, GULSHANM [address] [place], [place] [address] documented as of this encounter Visit Diagnoses Not on filedocumented in this encounter Care Teams Water Rights Specialist Relationship Specialty Start Date End Date Karma Timmons MD [address] [place] [address] PCP - General Family Medicine 02/18/23 documented as of this encounter
--- OUTSIDE RECORDS SUMMARY | 2025-05-15 15:29 | XMS_ITS | Clinical Summary ---
Author Organization [facility] Address [id number] [place] [address] Care Team Providers Care Senior Ui Developer Name Role Phone Nevaeh Ruiz CASINO PORTER-QUALITY MANAGEMENT NURSE Primary Care Provider [phone] Allergies Active Allergy Reactions Criticality Noted Date Comments [place] 10/15/2020 Medications acetaminophen (TylenoL) 325 mg tablet [...] MEDICAID [employer] WORK[employer] COMPENSATION Care Teams Senior Ui Developer Relationship Specialty Start Date End Date Nevaeh Ruiz, CASINO PORTER-QUALITY MANAGEMENT NURSE PCP - General Nurse Practitioner 10/15/20
--- OUTSIDE RECORDS SUMMARY | 2025-05-15 15:29 | XMS_ITS | Encounter Summary ---
Author Organization [facility] Address [address] [place] [address] Care Team Providers Care Management And Budget Analyst Name Role Phone Karma Timmons MD Primary Care Provider Encounter Details Date Type Department Care Team (Late st Contact Info) Description 12/14/2024 Results Follow-Up [facility] [address] [place] [address] Adrianna Kim, CN [address] [place], [place] [phone] US OB limited 1+ fetuses Social History [...] [facility] [address] [facility] [address] [place] [address] Moises Lindo LPC 06/13/2025 2:00 PM EST Office Visit [facility] [address] [place] [address] Adrianna Kim CNM [address] [place] [address] documented as of this encounter Visit Diagnoses Not on filedocumented in this encounter Additional Health Concerns Assessment Noted Time PHQ-9 Depression Total Score: 14 024 10:00 AM EDT documented as of this encounter Care Teams Management And Budget Analyst Relationship Specialty Start Date End Date Karma Timmons MD [address] [place] [address] PCP - General Family Medicine 02/18/23 documented as of this encounter
--- OUTSIDE RECORDS SUMMARY | 2025-05-15 15:29 | XMS_ITS | Encounter Summary ---
Author Organization [facility] Address [address] [place] [address] Care Team Providers Care Production Estimator Name Role Phone Karma Timmons MD Primary Care Provider [phone] Encounter Details Date Type Department Care Team ([facility] Contact Info) Description 05/28/2023 Abstract [facility] [address] [place] [address] Karma Timmons MD [address] [place], [place] [address] Social History Tobacco Use Types Packs/Day Years [...] Upcoming Encounters Date Type Department Care Team ([facility] Contact Info) Description 05/28/2025 2:30 PM EDT Social Work [facility] [address] [place] [address] Moises Lindo LPC 06/13/2025 2:00 PM EST Office Visit [facility] [address] [place] [address] Adrianna Kim, GULSHANM [address] [place], [place] [address] documented as of this encounter Visit Diagnoses Not on filedocumented in this encounter Care Teams Production Estimator Relationship Specialty Start Date End Date Karma Timmons MD [address] [place] [address] PCP - General Family Medicine 02/18/23 documented as of this encounter
--- OUTSIDE RECORDS SUMMARY | 2025-05-15 15:29 | XMS_ITS | Encounter Summary ---
Author Organization [facility] Address [address] [place] [address] Care Team Providers Care Direct Care Supervisor Name Role Phone Karma Timmons MD Primary Care Provider [phone] Encounter Details Date Type Department Care Team (Late Contact Info) Description 12/26/2024 Results Follow-Up [facility] [address] [place] [address] Adrianna Kim, [facility] [address] [place], [place] [phone] POCT Urinalysis dipstick, Urine culture Social History [...] Behavioral Health [address] [place] [address] Moises Lindo LPC 06/13/2025 2:00 PM EST Office Visit [facility] [address] [place] [address] Adrianna Kim CNM [address] [place] [address] documented as of this encounter Visit Diagnoses Not on filedocumented in this encounter Additional Health Concerns Assessment Noted Time PHQ-9 Depression Total Score: 14 01/24/ 024 10:00 AM EDT documented as of this encounter Care Teams Direct Care Supervisor Relationship Specialty Start Date End Date Karma Timmons MD [address] [place] [address] PCP - General Family Medicine 02/18/23 documented as of this encounter
--- OUTSIDE RECORDS SUMMARY | 2025-05-15 15:34 | XMS_ITS | CCD ---
Author Organization [facility] Care Team Providers Care Journeyman Molder Name Role Phone Iian SAUL, Karma Jain Primary Care Provider [phone] FLORO, TIAGO L Attending Unavailable FLORO, TIAGO [...] Date of Onset Reaction(s) Facility (20 sources) [place] Propensity to adverse reactions [facility] Medications [...] Active docusate sodium 100 mg oral capsule (5 sources) take 1 capsule by mouth in the morning docusate sodium (Colace) 100 MG capsule Take 100 mg by mouth in the morning and 100 mg before bedtime. Active ferrous sulfate 325 mg oral tablet (5 sources) take 1 tablet by mouth at mealtime ferrous sulfate 325 (65 Fe) MG tablet Take 325 mg by mouth in the morning. Take with meals. Active norethindrone 0.35 mg oral tablet (3 sources) Start: 01-23-2025 End: 04-23-2025 take 1 tablet by mouth once daily norethindrone (Micronor) 0.35 MG tablet Indications: Unwanted fertility Take 1 tablet (0.35 mg) by mouth Daily 90 tablet 3 01/23/2025 Active Vit-Fe Fumarate-FA ( Vitamins) 27-0.8 MG [...] 12-21-2023 12-21-2023 Chronic Other conditions (2 sources) [id number] at regardless of gestation period; Translations: [Other [...] WITH AUTO DIFFon BASOPHILS ABSOLUTE AUTO 0 [facility] Basophils/100 WBC (Bld) 0.2 % 0.2 - 2.0 % [facility] Eosinophils/100 WBC (Bld) 0.2 % Low 0.9 - 7.0 % [facility] Erythrocyte distribution width (RBC) [Ratio] 15.5 % High 11.0 - 15.0 % [facility] Hematocrit (Bld) [Volume fraction] 29.4 % Low 36.0 - 48.0 % [facility] Healthcar e Hemoglobin (Bld) [Mass/Vol] 9.7 g/dL Low 12.0 - 16.0 g/dL [facility] IMMATURE GRANULOCYTES ABS AUTO 0.1 High [facility] Immature granulocytes/100 WBC (Bld) 0.6 % High 0.0 - 0.5 % [facility] Interpretation and review of laboratory results Abnormal [facility] LYMPHOCYTES ABSOLUTE AUTO 1.5 [facility] Lymphocytes/100 WBC (Bld) 8.9 % Low 20.5 - 60.0 % [facility] MCH (RBC) [Entitic mass] 25.9 pg Low 26.7 - 34.0 pg [facility] MCHC (RBC) [Mass/Vol] 33 g/dL 29.9 - 35.2 g/dL [facility] MCV (RBC) [Entitic vol] 78.4 fL Low 81.0 - 99.0 fL [facility] MONOCYTES ABSOLUTE AUTO 1 High [facility] Monocytes/100 WBC (Bld) 5.9 % 1.7 - 12.0 % [facility] NEUTROPHILS ABSOLUTE AUTO 14 High [facility] Neutrophils/100 WBC (Bld) 84.2 % High 43.0 - 75.0 % [facility] Platelet mean volume (Bld) [Entitic vol] 9.9 fL 9.5 - 13.5 fL [facility] EO # 0 [facility] PLT 299 [facility] RBC 3.75 Low [facility] WBC 16.6 High [facility] UA (CLEAN/CATCH) FUR CUTTING MACHINE OPERATOR/RICKY RO IF IND.on 12-14-2024 BILIRUBIN URINE Negative NEGATIVE [facility] BLOOD URINE Negative NEGATIVE [facility] Clarity (U) CLEAR CLEAR [facility] Color (U) LT. YELLOW YELLOW [facility] GLUCOSE URINE UA Negative NEGATIVE mg/dL [facility] Interpretation and review of laboratory results Abnormal [facility] Ketones Ql (U) Negative NEGATIVE mg/dL [facility] Leukocyte esterase Test strip Ql (U) Negative NEGATIVE [facility] NITRITE URINE Negative NEGATIVE [facility] pH (U) 6.0 [pH] 5.0 - 9.0 [facility] PROTEIN URINE Negative NEG/TRACE mg/dL [facility] SPECIFIC GRAVITY URINE <=1.005 Abnormal 1.005 - 1.025 [facility] URINE MICROSCOPIC INDICATED NO [facility] UROBILINOGEN URINE 0.2 EU/dL 0.2 - 1.0 EU/dL [facility] [place] [place] [address] Ultrasound Report Signed Patient: NANI CHOI MR#: [id number] : 2005 Acct:[id number] Age/Sex: 19 / F ADM Date: Loc: [facility] 255-[address]: TIAGO KIM APRN, CNM Ordering Physician: TIAGO KIM APRN, CNM Date of Service: 12/14/24 Procedure(s): US OB limited Accession Number(s): [id number] cc: KARMA TIMMONS ; TIAGO KIM APRN, CNM [place] [id number] Patient Name: NANI CHOI MRN: [id number] date: 2005 Sex: F Assigned Patient Location: [facility] Current Patient Location: [facility] Accession/Order Number: [id number] Exam Date: 12/14/2024 14:51 Report Date: 12/14/2024 14:52 At the request of: TIAGO KIM APRN, CNM Procedure: US OB limited Limited obstetrical ultrasound HISTORY: Assessment of position prior to delivery The fetus is in cephalic presentation with longitudinal lie. The heart rate 148 bpm. US/US OB limited IMPRESSION: Cephalic presentation of fetus. Impression dictated by: Cody Joseph M.D. 12/14/2024 2:52 PM Dictation Location: [id number]-[id number] Electronically authenticated by: [id number] Y Date: 12/14/2024 14:52 Dictated By: Cody Joseph D.O. Signed By: 12/14/245 DD/ 51 TD/TT: Medical Device Sales Representative: [facility] Radiology, Radiologist, MD - 12/14/2024 [place] [address] Ultrasound Report Signed Patient: NANI CHOI MR#: [id number] : 2005 Acct:[id number] Age/Sex: 19 / F ADM Date: Loc: [facility] 255-[address]: TIAGO KIM APRN, CNM Ordering Physician: TIAGO KIM APRN, CNM Date of Service: 12/14/24 Procedure(s): US OB limited Accession Number(s): [id number] cc: KARMA TIMMONS ; TIAGO KIM APRN, CNM [facility] [place] [id number] Patient Name: NANI CHOI MRN: [facility]:[id number] date: 2005 Sex: F Assigned Patient Location: [facility] Current Patient Location: [facility] Accession/Order Number: [id number] Exam Date: 12/14/2024 14:51 Report Date: 12/14/2024 14:52 At the request of: TIAGO KIM APRN, CNM Procedure: US OB limited Limited obstetrical ultrasound HISTORY: Assessment of position prior to delivery The fetus is in cephalic presentation with longitudinal lie. The heart rate 148 bpm. US/US OB limited IMPRESSION: Cephalic presentation of fetus. Impression dictated by: Cody Joseph M.D. 12/14/2024 2:52 PM Dictation Location: RADIO-PC-23 Electronically authenticated by: [id number] Y Date: 12/14/2024 14:52 Dictated By: Cody Joseph D.O. Signed By: 12/14/241454 DD/ 51 TD/TT: Medical Device Sales Representative: [facility] Radiology Study observation (narrative) [facility] US for pregnancyOrdered By: Radiologist Radiology on 12-14-2024 [facility] App [employer] e Work Phone: US OB FOLLOW UP [...] 3112 gm / 6 lbs, 13 oz (9850-0149 gm) [place] Normal: 3540 gm (8361-7994 gm) [place] Wt%: 18% for 39.6 wks [...] Grade 3 anterior placenta. Dictated and transcribed 12/08/24/dpgordy rodríguez [facility] sent results to ordering physician. This [...] 1448 gm / 3 lbs, 3 oz (4471-8031 gm) [place] Normal: 1641 gm (6944-7365 gm) [place] Wt%: 18% for 30.4 wks Age by LMP: 30 w 3 d OZZIE by LMP: 12/11/24 Gestation: Single Position: Cephalic Placental Location: Anterior Placental Grade: 2 Somatic Movement: Yes IMPRESSION: Single live intrauterine gestation in cephalic position estimated at 29 weeks 5 days. This is approximately 5 days behind provided clinical dates which is within biometric variation. Dictated and transcribed 10/06/24/dpd This report has been electronically signed and approved by the interpreting radiologist. Normal Not Available Vital Signs Date Time Vital Sign Value Performing Clinician Kamille morales 01-23-2025 14:07-0400 Body mass index (BMI) [Ratio] 31.18 kg/m2 Tiago [facility] Work Phone: [facility] 01-23-2025 14:07-0400 Body weight 79.83 kg Tiago [facility] Work Phone: [facility] 01-23-2025 14:07-0400 Diastolic blood pressure 80 mm[Hg] Tiago [facility] Work Phone: [facility] 01-23-2025 14:07-0400 Systolic blood pressure 120 mm[Hg] Tiago [facility] Work Phone: [facility] 12-26-2024 11:32-0400 Body mass index (BMI) [Ratio] 32.06 kg/m2 Tiago [facility] Work Phone: [facility] 12-26-2024 11:32-0400 Body weight 82.1 kg Tiago Floro CNM Work Phone: [facility] 12-26-2024 11:32-0400 Diastolic blood pressure 80 mm[Hg] Tiago Floro CNM Work Phone: [facility] 12-26-2024 11:32-0400 Systolic blood pressure 120 mm[Hg] Tiago Floro CNM Work Phone: [facility] 12-05-2024 16:38-0400 Body mass index (BMI) [Ratio] 35.43 kg/m2 Tiago Floro CNM Work Phone: [facility] 12-05-2024 16:38-0400 Body weight 90.72 kg Tiago Floro CNM Work Phone: [facility] 12-05-2024 16:38-0400 Diastolic blood pressure 80 mm[Hg] Tiago Floro CNM Work Phone: [facility] 12-05-2024 16:38-0400 Systolic blood pressure 120 mm[Hg] Tiago Floro CNM Work Phone: [facility] 11-29-2024 16:29-0400 Body mass index (BMI) [Ratio] 35.43 kg/m2 Tiago Floro CNM Work Phone: [facility] 11-29-2024 16:29-0400 Body weight 90.72 kg Tiago Floro CNM Work Phone: [facility] 11-29-2024 16:29-0400 Diastolic blood pressure 70 mm[Hg] Tiago Floro CNM Work Phone: [facility] 11-29-2024 16:29-0400 Systolic blood pressure 120 mm[Hg] Tiago Floro CNM Work Phone: [facility] 11-22-2024 16:15-0400 Body mass index (BMI) [Ratio] 34.37 kg/m2 Tiago Floro CNM Work Phone: [facility] 11-22-2024 16:15-0400 Body weight 88 kg Tiago Floro CNM Work Phone: [facility] 11-22-2024 16:15-0400 Diastolic blood pressure 80 mm[Hg] Tiago Floro CNM Work Phone: [facility] 11-22-2024 16:15-0400 Systolic blood pressure 120 mm[Hg] Tiago Floro CNM Work Phone: [facility] 11-15-2024 16:31-0400 Body mass index (BMI) [Ratio] 34.54 kg/m2 Tiago Floro CNM Work Phone: [facility] 11-15-2024 16:31-0400 Body weight 88.45 kg Tiago Floro CNM Work Phone: [facility] 11-15-2024 16:31-0400 Diastolic blood pressure 80 mm[Hg] Tiago Floro CNM Work Phone: [facility] 11-15-2024 16:31-0400 Systolic blood pressure 120 mm[Hg] Tiago Floro CNM Work Phone: [facility] 11-08-2024 15:44-0400 Body mass index (BMI) [Ratio] 34.37 kg/m2 Tiago Floro CNM Work Phone: [facility] 11-08-2024 15:44-0400 Body weight 88 kg Tiago Floro CNM Work Phone: [facility] 11-08-2024 15:44-0400 Diastolic blood pressure 72 mm[Hg] Tiago Floro CNM Work Phone: [facility] 11-08-2024 15:44-0400 Systolic blood pressure 110 mm[Hg] Tiago Floro CNM Work Phone: [facility] 10-23-2024 17:03-0400 Body mass index (BMI) [Ratio] 33.48 kg/m2 Tiago Floro CNM Work Phone: [facility] 10-23-2024 17:03-0400 Body weight 85.73 kg Tiago Floro CNM Work Phone: [facility] 10-23-2024 17:03-0400 Diastolic blood pressure 80 mm[Hg] Tiago Floro CNM Work Phone: [facility] 10-23-2024 17:03-0400 Systolic blood pressure 118 mm[Hg] Tiago Floro CNM Work Phone: [facility] 08-29-2024 16:07-0500 Body mass index (BMI) [Ratio] 30.82 kg/m2 Tiago Floro CNM Work Phone: [facility] 08-29-2024 16:07-0500 Body weight 78.93 kg Tiago Floro CNM Work Phone: [facility] 08-29-2024 16:07-0500 Diastolic blood pressure 70 mm[Hg] Tiago Floro CNM Work Phone: [facility] 08-29-2024 16:07-0500 Systolic blood pressure 120 mm[Hg] Tiago Floro CNM Work Phone: [facility] 07-31-2024 18:16-0500 Body mass index (BMI) [Ratio] 30.29 kg/m2 Tiago Floro CNM Work Phone: [facility] 07-31-2024 18:16-0500 Body weight 77.56 kg Tiago Floro CNM Work Phone: [facility] 07-31-2024 18:16-0500 Diastolic blood pressure 80 mm[Hg] Tiago Floro CNM Work Phone: [facility] 07-31-2024 18:16-0500 Systolic blood pressure 120 mm[Hg] Tiago Floro CNM Work Phone: [facility] 05-29-2024 16:07-0400 Body mass index (BMI) [Ratio] 28.52 kg/m2 Tiago Floro CNM Work Phone: [facility] 05-29-2024 16:07-0400 Body weight 73.03 kg Tiago Kim CNM Work Phone: [facility] 05-29-2024 16:07-0400 Diastolic blood pressure 70 mm[Hg] Tiago Lewiso CNM Work Phone: [facility] 05-29-2024 16:07-0400 Systolic blood pressure 112 mm[Hg] Tiago Kim CNM Work Phone: [facility] 05-01-2024 13:43-0400 Body mass index (BMI) [Ratio] 28.87 kg/m2 Tiago Kim CNM Work Phone: [facility] 05-01-2024 13:43-0400 Body weight 73.94 kg Tiago Kim CNM Work Phone: [facility] 04-11-2024 10:56-0400 Body height 160 cm Karma Timmons MD Work Phone: [facility] 04-11-2024 10:56-0400 Body mass index (BMI) [Ratio] 28.87 kg/m2 Karma Timmons MD Work Phone: [facility] 04-11-2024 10:56-0400 Body weight 73.94 kg Karma Timmons MD Work Phone: [facility] 04-11-2024 10:56-0400 Diastolic blood pressure 70 mm[Hg] Karma Timmons MD Work Phone: [facility] 04-11-2024 10:56-0400 Heart rate 88 /min Karma Timmons MD Work Phone: [facility] 04-11-2024 10:56-0400 Respiratory rate 18 /min Karma Timmons MD Work Phone: [facility] 04-11-2024 10:56-0400 SaO2% (BldA) [Mass fraction] 100 % Karma Timmons MD Work Phone: [facility] 04-11-2024 10:56-0400 Systolic blood pressure 122 mm[Hg] Karma Timmons MD Work Phone: [facility] Encounters Encounter Date Encounter Type Care Provider Facility Start: 05-01-2025 End: 05-01-2025 ambulatory TIAGO L FLORO Not Available Start: 05-01-2025 End: 05-01-2025 Bamboo flowsheet Tiago L Floro CNM Work Phone: [facility] Start: 05-01-2025 End: 05-01-2025 Bamboo flowsheet Tiago L Floro CNM Work Phone: [facility] Start: 01-23-2025 End: 01-23-2025 ambulatory TIAGO L FLORO Not Available Start: 01-23-2025 End: 01-23-2025 care visit Tiago L Floro CNM Work Phone: [facility] Comment on above: Unwanted fertility ( Primary Dx); care following vaginal delivery ([facility]) Start: 12-26-2024 End: 12-26-2024 ambulatory TIAGO L FLORO Not Available Start: 12-26-2024 End: 12-26-2024 care visit Tiago L Floro CNM Work Phone: [facility] Comment on above: Acute cystitis witho ut hematuria (Primary Dx) Start: 12-15-2024 End: 12-15-2024 [facility] Result Encounter Tiago L Floro CNM Work Phone: [facility] Unsolicited Start: 12-15-2024 End: 12-15-2024 [facility] Result Encounter Tiago L Floro CNM Work Phone: [facility] Unsolicited Start: 12-14-2024 End: 12-14-2024 [facility] Result Encounter Tiago L Floro CNM Work Phone: [facility] Unsolicited Start: 12-14-2024 End: 12-14-2024 [facility] Result Encounter Tiago L Floro CNM Work Phone: [facility] Unsolicited Start: 12-11-2024 End: 12-11-2024 ambulatory TIAGO L FLORO Not Available Start: 12-08-2024 End: 12-08-2024 ambulatory TIAGO L FLORO Not Available Start: 12-05-2024 End: 12-05-2024 ambulatory TIAGO L FLORO Not Available Start: 12-05-2024 End: 12-05-2024 Subsequent care visit Tiago Cinthia Lewiso CNM Work Phone: [facility] Comment on above: Large for dates (Sade karma Dx); Encounter for care of first , third trimester Start: 12-05-2024 End: 12-05-2024 Bamboo flowsheet Tiago L Debbieo CNM Work Phone: [facility] Start: 12-05-2024 End: 12-05-2024 Bamboo flowsheet Tiago L Floro CNM Work Phone: [facility] Start: 11-29-2024 End: 11-29-2024 Subsequent care visit Tiago Cinthia Lewiso CNM Work [...] 11-22-2024 End: 11-22-2024 Subsequent care visit Tiago Cinthia Lewiso CNM Work [...] Phone: [facility] Start: 08-15-2024 End: 01-14-2025 Telephone encounter Melinda Hernandes [employer] INTERPRETIVE SPECIALIST [facility] Start: 07-31-2024 End: 07-31-2024 [...] Start: 05-29-2024 End: 05-29-2024 Bamboo flowsheet Tiago Kim CNM Work Phone: [facility] Start: 05-01-2024 End: 05-01-2024 Bamboo flowsheet Tiagorobert Kim CNM Work Phone: [facility] Start: 05-01-2024 End: 05-01-2024 Bamboo flowsheet Tiago Kim CNM Work Phone: [facility] Start: 05-01-2024 End: 05-01-2024 Initial care visit Tiago Kim CNM Work Phone: [facility] Comment on above: GA: 8w0d Start: 04-11-2024 End: 04-11-2024 Bamboo flowsheet Karma Timmons MD Work Phone: [facility] Start: 04-11-2024 End: 04-11-2024 Bamboo flowsheet Karma Timmons MD Work Phone: [facility] Start: 04-11-2024 End: 04-11-2024 Office outpatient visit 15 minutes Karma Timmons MD Work Phone: [facility] Comment on above: Threatened in early (Primary Dx) Procedures Date Procedure Procedure Detail Performing Clinician Start: 12-15-2024 ALL CBC WITH AUTO DIFF Tiago GAFFNEYM Work Phone: Start: 12-14-2024 Us uterus limited 1/> fetuses Tiago Kim CNM Work Phone: Start: 12-14-2024 [facility] UA (CLEAN/CATCH) FUR CUTTING MACHINE OPERATOR/MICRO IF IND. Tiago Lewiso CNM Work Phone: Plan of Treatment Date Care Activity Detail Author Start: 05-01-2025 End: 05-01-2025 Patient encounter procedure 05/01/2025 2:00 PM EDT Office Visit [facility] [address] [place] [address] Tiago Kim CNM [address] [facility] [place] [address] [facility] Start: 04-02-2025 [facility] Start: 01-29-2025 Influenza vaccination Influenza Vacc ine (#1) [facility] Comment on above: Postponed from 04/02 (Patient Refused) Start: 01-23-2025 End: 01-23-2025 ambulatory 01/23/2025 2:00 PM EDT Visit [facility] [address] [facility] [address] Tiago Kim, CNM [address] [facility] [place] [address] [facility] Start: 12-14-2024 End: 12-14-2024 Patient encounter procedure 12/14/2024 3:30 PM EDT Routine [facility] [address] [facility] [place] [address] Tiago Kim, CNM [address] [facility] [place] [place] [address] [facility] Start: 12-14-2024 End: 12-14-2024 Professional / ancillary services management 12/14/2024 3:00 PM EDT Ancillary Procedure [facility] [address] [place] [id number] [facility] Start: 12-11-2024 End: 12-11-2024 Patient encounter procedure 12/11/2024 4:30 PM EDT Routine [facility] [address] [facility] [place] [address] Tiago Kim, CNM [address] [facility] [place] [place] [address] [facility] Start: 12-08-2024 End: 12-08-2024 Professional / ancillary services management 12/08/2024 9:30 AM EDT Ancillary Procedure [facility] [address] [id number] [facility] Start: 12-05-2024 End: 12-05-2024 Patient encounter procedure 12/05/2024 4:30 PM EDT Routine [facility] [address] [place] [phone] Tiago Kim CNM [address] [place] [address] [facility] Start: 12-05-2024 End: 12-05-2025 [...] PM EDT Routine [facility] [address] [place] [phone] Tiago Kim, VICKEY [address] [place] [address] [facility] Start: 11-15-2024 End: 11-15-2025 STREPTOCCOUS, GROUP B CULTURE STREPTOCCOUS, GROUP B CULTURE Lab Routine screening for streptococcus B Expected: 11/15/2024 (Approximate), Expires: 11/15/2025 [facility] Work Phone: Comment on above: Expected: 11/15/2024 (Approximate), Expires: 11/15/2025 Start: 11-07-2024 End: 11-07-2024 Patient encounter procedure 11/07/2024 4:30 PM EDT Routine [facility] [address] [facility] [address] Judy Tiago L, CNM [address] [facility] [place] [place] [address] [facility] Start: 10-23-2024 End: 10-23-2024 Patient encounter procedure 10/23/2024 4:45 PM EDT Routine [facility] [address] [facility] [id number] DebbiemicTiago, CNM [address] [facility] [place] [place] [address] [facility] Start: 09-21-2024 End: 09-21-2024 Patient encounter procedure 09/21/2024 2:30 PM EST Routine [facility] [address] [facility] [phone] Marilyn Kimrobert Vicente, CNM [address] [facility] [place] [address] [facility] Start: 08-29-2024 End: 08-29-2024 [...] 05/22/2024 9:30 AM EDT Office Visit [facility] [address] [place] [id number] Mckenzie Hong, SHEET METAL ASSEMBLER AND RIVETER-FUR CUTTING MACHINE OPERATOR [address] [facility] [address] [place] [address] [facility] Start: 05-01-2024 End: 05-01-2025 Bacteria identified in Urine by Culture Urine culture Microbiology Routine Amenorrhea examination or test, positive result 8 weeks gestation of Expected: 05/01/2024 (Approximate), Expires: 05/01/2025 [facility] Comment on above: Expected: 05/01/2024 (Approximate), Expires: 05/01/2025 Start: 05-01-2024 End: 05-01-2025 DRUG TOX MONITORIGN 6 W/ CONF,URINE DRUG TOX MONITORIGN 6 W/ CONF,URINE Lab Routine Amenorrhea examination or test, positive result 8 weeks gestation of Expected: 05/01/2024 (Approximate), Expires: 05/01/2025 [facility] Comment on above: Expected: 05/01/2024 (Approximate), Expires: 05/01/2025 Start: 05-01-2024 End: 05-01-2025 Neisseria gonorrhoeae DNA [Presence] in Cervical mucus by PAULINE with probe detection C. trachomatis / N. gonorrhoeae, DNA probe Pathology and Cytology Routine Amenorrhea examination or test, positive result 8 weeks gestation of Expected: 05/01/2024 (Approximate), Expires: 05/01/2025 [facility] Comment on above: Expected: 05/01/2024 (Approximate), Expires: 05/01/2025 Start: 05-01-2024 End: 05-01-2024 Professional / ancillary services management 05/01/2024 2:00 PM EDT Ancillary Procedure [facility] [address] [facility] [address] [place] [address] [facility] Start: 05-01-2024 End: 05-01-2025 TSH W/REFLEX TO FT4 TSH W/REFLEX TO FT4 Lab Routine Amenorrhea examination or test, positive result 8 weeks gestation of Expected: 05/01/2024 (Approximate), Expires: 05/01/2025 [facility] Comment on above: Expected: 05/01/2024 (Approximate), Expires: 05/01/2025 Start: 05-01-2024 End: 05-01-2025 URINALYSIS MICROSCOPIC URINALYSIS MICROSCOPIC Lab Routine Amenorrhea examination or test, positive result 8 weeks gestation of Expected: 05/01/2024 (Approximate), Expires: 05/01/2025 [facility] Comment on above: Expected: 05/01/2024 (Approximate), Expires: 05/01/2025 Start: 05-01-2024 End: 05-01-2024 ambulatory [facility] Comment on above: Arrived Start: 04-11-2024 End: 04-11-2025 HCG, quantitative, HCG, quantitative, Lab Routine Threatened in early Expected: 04/11/2024 (Approximate), Expires: 04/11/2025 [facility] Work Phone: Comment on above: Expected: 04/11/2024 (Approximate), Expires: 04/11/2025 Start: 04-02-2024 Influenza vaccination Influenza Vacc ine (#1) [facility] ABO/Rh ABO/Rh Lab Routi ne Amenorrhea examination or test, positive result 8 weeks gestation of Ordered: 05/01/2024 [facility] Comment on above: Ordered: 05/01/2024 Antibody screen Antibody screen Lab Routine Amenorrhea examination or test, positive result 8 weeks gestation of Ordered: 05/01/2024 [facility] Comment on above: Ordered: 05/01/2024 CBC panel - Blood by Automated count CBC Lab Routine Amenorrhea examination or test, positive result 8 weeks gestation of Ordered: 05/01/2024 [facility] Comment on above: Ordered: 05/01/2024 Hemoglobin A1c/Hemoglobin.total in Blood Hemoglobin A1c Lab Routine Amenorrhea examination or test, positive result 8 weeks gestation of Ordered: 05/01/2024 [facility] Comment on above: Ordered: 05/01/2024 Hepatitis B virus surface Ag [Presence] in Serum or Plasma by Immunoassay Hepatitis B surface antigen Lab Routine Amenorrhea examination or test, positive result 8 weeks gestation of Ordered: 05/01/2024 [facility] Work Phone: Comment on above: Ordered: 05/01/2024 Hepatitis C virus Ab [Presence] in Serum or Plasma by Immunoassay Hepatitis C antibody Lab Routine Amenorrhea examination or test, positive result 8 weeks gestation of Ordered: 05/01/2024 [facility] Comment on above: Ordered: 05/01/2024 HIV-1/HIV-2 antigen/antibody combination immunoassay HIV-1 and HIV-2 antibodies Lab Routine Amenorrhea examination or test, positive result 8 weeks gestation of Ordered: 05/01/2024 [facility] Comment on above: Ordered: 05/01/2024 Reagin Ab [Presence] in Serum by [facility] Lab Routine Amenorrhea examination or test, positive result 8 weeks gestation of Ordered: 05/01/2024 [facility] Comment on above: Ordered: 05/01/2024 Rubella antibody, IgG Rubella an tibody, IgG Lab Routine Amenorrhea examination or test, positive result 8 weeks gestation of Ordered: 05/01/2024 [facility] Comment on above: Ordered: 05/01/2024 Immunizations Immunization Date Immunization Notes Care Provider Fa [facility] 03-10-2021 meningococcal oligosaccharide (groups A, C, Y and W-135) diphtheria toxoid conjugate vaccine (MCV4O) Karma Timmons MD Work Phone: [facility] 03-23-2016 meningococcal oligosaccharide (groups A, C, Y and W-135) diphtheria toxoid conjugate vaccine (MCV4O) Karma Timmons MD Work Phone: [facility] 03-23-2016 tetanus toxoid, redu lu diphtheria toxoid, and acellular pertussis vaccine, adsorbed Karma Timmons MD Work Phone: [facility] 03-23-2016 varicella virus vaccine Karma Timmons MD Work Phone: [facility] 04-18-2009 diphtheria, tetanus toxoids and acellular pertussis vaccine Karma Timmons MD Work Phone: [facility] 03-23-2008 measles, mumps and r ubella virus vaccine Karma Timmons MD Work Phone: [facility] 03-23-2008 poliovirus vaccine, inactivated Karma Timmons MD Work Phone: [facility] 07-20-2005 diphtheria, tetanus toxoids and acellular pertussis vaccine Karma Timmons MD Work Phone: [facility] 07-20-2005 measles, mumps and r ubella virus vaccine Karma Timmons MD Work Phone: [facility] 07-20-2005 poliovirus vaccine, inactivated Karma Timmons MD Work Phone: [facility] 07-03-2004 pneumococcal conjuga te vaccine, 7 valent Karma Timmons MD Work Phone: [facility] 07-03-2004 varicella virus vaccine Karma Timmons MD Work Phone: [facility] 02-15-2004 diphtheria, tetanus toxoids and acellular pertussis vaccine Karma Timmons MD Work Phone: [facility] 02-15-2004 pneumococcal conjuga te vaccine, 7 valent Karma Timmons MD Work Phone: [facility] 2003 DTaP-hepatitis B and poliovirus vaccine Karma Timmons MD Work Phone: [facility] 2003 pneumococcal conjuga te vaccine, 7 valent Karma Timmons MD Work Phone: [facility] 2003 DTaP-hepatitis B and poliovirus vaccine Karma Timmons MD Work Phone: [facility] 2003 pneumococcal conjuga te vaccine, 7 valent Karma Timmons MD Work Phone: [facility] 2003 hepatitis B vaccine, pediatric or pediatric/adolescent dosage Karma Timmons MD Work Phone: [facility] Payers Date Payer Category Payer Medicaid [employer] [place] [id number] 2022-Present [address] [place] [address] [id number] 2022 Private Health Insurance [id number] 2022 Private Health Insurance [id number] 2003 Unknown [id number] 2.16.840.1.461815.3.579. 2.1259 2003 Unknown [id number] 2.16.840.1.359341.3.579. 2.1259 2003 Unknown [id number] 2.16.840.1.166921.3.579. 2.1259 2003 Unknown [id number] 2.16.840.1.500514.3.579. 2.125 2003 Unknown [id number] 2.16.840.1.077283.3.579. 2.1258 2003 Unknown [id number] 2.16.840.1.910621.3.579. 2.125 2003 Unknown [id number] 2.16.840.1.877164.3.579. 2.125 2003 Unknown [id number] 2.16.840.1.041143.3.579. 2.125 2003 Unknown [id number] 2.16.840.1.123201.3.579. 2.1258 2003 Unknown [id number] 2.16.840.1.151809.3.579. 2.9 2003 Unknown [id number] 2.16.840.1.598568.3.579. 2.125 2003 Unknown [id number] 2.16.840.1.606056.3.579. 2.125 2003 Unknown [id number] 2.16.840.1.572496.3.579. 2.1258 2003 Unknown [id number] 2.16.840.1.636545.3.579. 2.125 2003 Unknown [id number] 2.16.840.1.685158.3.579. 2.1259 2003 Unknown [id number] 2.16.840.1.228210.3.579. 2.1259 2003 Unknown [id number] 2.16.840.1.530129.3.579. 2.1259 Social History Date Type Detail Facility Start: [facility]18[facility]23 [facility] Start: 03-18-2023 [...] Sex assigned at Not on file [facility] Clinical Notes 04-11-2024 to 01-23-2025 Tiago Kim CNM - 01/23/2025 2:00 PM EDGrant Kim CNM - 12/26/2024 11:30 AM Hermila Kim CNM - 12/05/2024 4:30 PM EDGrant Kim CNM - 11/29/2024 4:30 PM EDT [...] encounter. normal exam documented in this encounter [facility] 12-26-2024 History of Presen t illness Narrative [...] encounter. normal exam documented in this encounter [facility] 12-05-2024 History of Presen t illness Narrative [...] a routine visit. documented in this encounter [facility] 11-29-2024 History of Presen t illness Narrative [...] a routine visit. documented in this encounter [facility] 11-22-2024 History of Presen t illness Narrative [...] a routine visit. documented in this encounter [facility] 11-15-2024 History of Presen t illness Narrative [...] a routine visit. documented in this encounter [facility] 11-08-2024 History of Presen t illness Narrative [...] goes away. She states she works at [employer] and it happens when she's lifting crates, [...] a routine visit. documented in this encounter [facility] 10-23-2024 History of Presen t illness Narrative [...] a routine visit. documented in this encounter [facility] 08-29-2024 History of Presen t illness Narrative [...] all orders for this visit: Anxiety, generalized (CMS/HCC) Encounter for supervision of other normal , second trimester Continue vitamin. Labs reviewed. Rhogam GTT at 28 weeks Follow up in 2 weeks for a routine visit. documented in this encounter [facility] 08-15-2024 Telephone encount er Note 10% co pay with unlimited visits after deductible is met Deductible is 1000/2000 and 0 is met Out of pocket 2500/5000 and 0 is met Pt will callback to schedule [facility] 08-15-2024 Miscellaneous Notes Formattin g of this note might be different from the original. 10% co pay with unlimited visits after deductible is met Deductible is 1000/2000 and 0 is met Out of pocket 2500/5000 and 0 is met Pt will callback to schedule documented in this encounter [facility] 07-31-2024 History of Presen t illness Narrative [...] a routine visit. documented in this encounter [facility] 07-28-2024 Telephone encount er Note Ignacia Galloway called - a fax that was sent today didn't go over correctly - it needs re-sent . I didn't see anything recent or any notes as to what it was or I would have . Ty [facility] 07-28-2024 Miscellaneous Notes Formattin g of this note might be different from the original. Ignacia Galloway called - a fax that was sent today didn't go over correctly - it needs re-sent . I didn't see anything recent or any notes as to what it was or I would have . Ty documented in this encounter [facility] 05-29-2024 History of Presen t illness Narrative [...] a routine visit. documented in this encounter [facility] 05-01-2024 History of Presen t illness Narrative [...] also given office phone number and [facility] number to call in case of an emergency or after hours needs. PVU and all questions answered. We did discuss place of delivery. Patient should plan to go to [facility] for all services unless an emergency and they need to go to the closest ER. We can make other arrangements possibly if patient would like to deliver at another facility but I did explain I am now at [place] 100% of the time and would like to do all deliveries there. documented in this encounter [facility] 04-11-2024 History of Presen t illness Narrative Nani Choi is a 18 y.o. female presents with chief complaint of Hospital Follow-up (Patient presents today for ER follow up from [facility]. Patient was in ER on 04/06/24. [...] Flowsheet Row Office Visit from 04/11/2024 in [facility] with Karma Timmons MD Hospital Information Discharged To: Home Setting Discharge Hospital [facility] Discharge Date 04/06/24 Engagement Call Start [...] tablet, Oral, Daily ALLERGIES: Allergies Allergen Reactions [place] Extract SURGICAL HISTORY: Past Surgical History: Procedure [...] in 3 weeks documented in this encounter [facility] Healthcare Evaluation note Diagnosis 12 weeks gestation of - Primary examination or test, positive result [facility] Diagnosis Threatened in early - Primary [facility] Diagnosis Amenorrhea Absence of menstruation examination or test, positive result 8 weeks gestation of [facility] Diagnosis Anxiety, generalized ([facility])- Primary Encounter for supervision of other normal , second trimester [facility] Diagnosis Anxiety, generalized ([facility])- Primary Encounter for supervision of other normal [...] Unwanted fertility- Primary care following vaginal delivery ([facility]) [facility] N[facility] Maternity Services (Routine) - Closed Specialty Diagnoses / Procedures Referred By Contac t Referred To Contact Obstetrics and Gynecology Diagnoses examination or test, positive result 8 weeks gestation of Procedures [place] OFFICE/OUTPATIENT NEW HIGH MDM 60 MINUTES Anjelica Kimmason Vicente, CNM [address] [place] [address] Phone: tel: fax: Tiago Kim Cinthia, CNM [address] [place] [address] Phone: tel: fax: Referral ID Status Reason Start Date Expiration Date V isits Requested Visits Authorized [id number] Closed Specialty Services Required 05/01/2024 10/28/2024 1 1 [facility] Reason for Referral Specialty Diagnoses / Procedures Referred By Elly t Referred To Contact Obstetrics and Gynecology Diagnoses examination or test, positive result 8 weeks gestation of Procedures [place] OFFICE/OUTPATIENT NEW HIGH MDM 60 MINUTES Anjelica Kimmason Vicente, CNM [address] [place] [address] Debbiemic Tiago L, GULSHAN [address] [facility] [place] [place] [address] Referral ID Status Reason Start Date Expiration Date Visits Requested Visits Authorized [id number] Pending Review Specialty Services Required 05/01/2024 10/28/2024 1 1 Summary Purpose Family History No Family History Records Found Advance Directives No Advanced Directives Records Found Additional Source Comments Care Teams (unrecognized sec tion and content) Journeyman Molder Relationship Specialty Start Date End Date Karma Timmons MD [address] [facility] [place] [address] PCP - General Family Medicine 02/18/23 Journeyman Molder Relationship Specialty Start Date End Date Karma Timmons MD [address] [facility] [place] [address] PCP - General Family Medicine 02/18/23 Journeyman Molder Relationship Specialty Start Date End Date Karma Timmons MD [address] [facility] [place] [address] PCP - General Family Medicine 02/18/23 Journeyman Molder Relationship Specialty Start Date End Date Karma Timmons MD [address] [facility] [place] [address] PCP - General Family Medicine 02/18/23 Journeyman Molder Relationship Specialty Start Date End Date Karma Timmons MD [address] [facility] [place] [address] PCP - General Family Medicine 02/18/23 Journeyman Molder Relationship Specialty Start Date End Date Karma Timmons MD [address] [facility] [place] [address] PCP - General Family Medicine 02/18/23 Journeyman Molder Relationship Specialty Start Date End Date Karma Timmons MD [address] [facility] [place] [address] PCP - General Family Medicine 02/18/23 Journeyman Molder Relationship Specialty Start Date End Date Karma Timmons MD [address] [facility] [place] [address] PCP - General Family Medicine 02/18/23 Journeyman Molder Relationship Specialty Start Date End Date Karma Timmons MD [address] [facility] [place] [address] PCP - General Family Medicine 02/18/23 Journeyman Molder Relationship Specialty Start Date End Date Karma Timmons MD [address] [facility] [place] [address] PCP - General Family Medicine 02/18/23 Journeyman Molder Relationship Specialty Start Date End Date Karma Timmons MD [address] [facility] [place] [address] PCP - General Family Medicine 02/18/23 Journeyman Molder Relationship Specialty Start Date End Date Karma Timmons MD [address] [place] [address] PCP - General Family Medicine 02/18/23 Journeyman Molder Relationship Specialty Start Date End Date Karma Timmons MD [address] [place] [address] PCP - General Family Medicine 02/18/23 Journeyman Molder Relationship Specialty Start Date End Date Karma Timmons MD [address] [place] [address] PCP - General Family Medicine 02/18/23 Reason for Visit (unrecogniz ed section and content) Reason Comments Hospital Follow-up Patient [facility] for [facility] follow up from [facility]. Patient was in ER on 04/06/24. Patient states that she went to the ER to make sure that she wasn't having an ectopic . Patient is currently 4 weeks . Patient was having pain in lower left abdomen. Reason Comments Initial Visit Reason Comments Care INFORMATION SOURCE (unrecogn ized section and content) DATE CREATED AUTHOR 05/07/2025 [facility] FOR RECORDS PERTAINING TO PATIENTS [...] BE BASED ON THE PRIMARY CLINICAL RECORDS. [employer] provides no warranty or guarantee of the accuracy or completeness of information in this document.
--- NOTE | 2025-05-15 15:41 | ECG_ITS ---
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 Measurements Intervals [place] Rate: 74 P: 30 NC: 134 QRS: 80 QRSD: 88 T: 9 QT: 382 QTc: 409 Interpretive Statements 1100 Sinus rhythm 4068 Nonspecific Twave abnormality 9130 borderline ECG Compared to ECG 04/03/2025 14:41:49 No significant changes Electronically Signed On 05-15-2025 19:09:50 EDT by JOSE LEWIS M.D.
--- NOTE | 2025-05-15 15:41 | ED.GENADUL1 ---
HPI HPI - General Adult General Chief complaint: Chest Pain Stated complaint: FEELS LIKE THROAT IS CLOSING UP LAST COUPLE DAYS Time Seen by Provider: 05/15/25 15:29 Source: patient Mode of arrival: walk-in Limitations: no limitations History of Present Illness HPI narrative: Patient is a 19-year-old female that presents with complaints of 2 days of intermittent chest pain, shortness of breath, feeling that her throat is closing, and dizziness/lightheadedness. She does report a history of anxiety and did have reflux during her . She is 5 months now. She has been taking sertraline 25 mg daily for her anxiety for about a month now. She restarted this after she was seen here about a month ago for the same issues. She did stop taking the sertraline about a month prior to giving . She states that her symptoms today are worse than they were a month ago. She denies any fever, night sweats, chills, abdominal pain, or diarrhea. She states she was vomiting Wednesday when the symptoms started. She has not felt ill such as nasal congestion, headache, cough, or had any sick contacts. She does follow with Marilyn Kim her motion pictures cartoonist, this is who restarted her sertraline. She has not seen her PCP in a while. Related Data Home Medications ?Medication ?Instructions ?Recorded ?Confirmed norethindrone (contraceptive) 0.35 0.35 mg PO DAILY 05/15/25 05/15/25 mg tablet (Jencycla) sertraline 50 mg tablet 25 mg PO DAILY 05/15/25 05/15/25 Previous Rx's ?Medication ?Instructions ?Recorded acetaminophen 325 mg tablet 650 mg (2 x 325 mg) PO Q6H PRN 12/16/24 Mild Pain 28 days #120 tabs benzocaine 20 %-menthol 0.5 % 1 spray topical Q2H PRN Pain 28 12/16/24 topical aerosol (Dermoplast (with days #1 g menthol)) docusate sodium 100 mg capsule 100 mg PO BID 28 days #56 caps 12/16/24 ferrous sulfate 325 mg (65 mg 325 mg PO BID 28 days #56 tabs 12/16/24 iron) tablet glycerin-witch juliet 12.5 %-50 % 1 pad topical Q2H PRN Pain 28 days 12/16/24 topical pads (A.E.R. Witch Juliet) #90 ea ibuprofen 400 mg tablet 800 mg (2 x 400 mg) PO Q8H 28 days 12/16/24 #168 tabs lidocaine HCl 2 % mucosal solution 5 ml topical ONCE PRN Pain 28 days 12/16/24 #1 mL simethicone 80 mg chewable tablet 80 mg PO QID PRN Abdominal 12/16/24 (Gas Relief 80 (simethicone)) Distention 28 days #90 tabs famotidine 20 mg tablet (Pepcid) 20 mg PO DAILY #14 tabs 05/15/25 Allergies Allergy/AdvReac Type Severity Reaction Status Date / Time No Known Drug Allergies Allergy Verified 05/15/25 15:22 Opioid HPI Opioid Management Most Recent Opioid Data: Last Pain Scale 9 Today, 15:36 Ur Phencyclidine Scrn, (NEGATIVE) Negative 12/14/24, 10:12 Review of Systems ROS Status of ROS 10 or more systems reviewed and unremarkable except as noted in history and below [facility] Medical History (Updated 05/15/25 @ 17:15 by ANNMARIE Espinoza) Missed ab ?O02.1 - Missed (ICD-10) Family History (Updated 03/03/23 @ 12:43 by Coco Willis RN) Other Family history of COPD (chronic obstructive pulmonary disease) Family history of diabetes mellitus Social History Within the past year, how often did you have a drink containing alcohol: never Score interpretation: A score less than 3 is consistent with normal alcohol consumption. Smoking status: Never smoker Non-prescribed substance use: denies use Previous occupational history: [employer] Known occupational exposures/hazards: No Highest level of school completed/degree received: high school graduate Little interest or pleasure in doing things: not at all Feeling down, depressed, or hopeless: not at all Feel stressed/tense/nervous/anxious/difficulty sleeping: not at all Exam Narrative Exam Narrative: General: No distress, age-appropriate Skin: Warm, dry, no pallor. No rash. Head: Normocephalic, atraumatic. Neck: Supple, non-tender. Eye: Pupils are equal, round and EOMI. No scleral icterus. Ears, Nose, Mouth, and Throat: Airway is patent. No nasal mucosal hypertrophy. Oral mucosa is moist, no posterior oropharynx erythema, uvula is mid-line Cardiovascular: Regular Rate and Rhythm without murmur, gallop or rub. Respiratory: No accessory muscle use or respiratory distress. Lungs are clear to auscultation, no wheezing, rales or rhonchi Chest Wall: no tenderness Musculoskeletal: Full ROM of all extremities, no calf or popliteal tenderness GI: Abdomen is soft, non-distended, non tender to palpation. No masses appreciated. No rebound, guarding, or rigidity noted. Neurological: A&O x4. No cranial nerve dysfunction observed. No truncal ataxia. Moves all extremities. Sensation intact. Psychiatric: Cooperative and interactive. Normal mood and affect. Constitutional Vital Signs, click to edit/add: Last Vital Signs Temp 98.3 F 05/15/25 15:23 Pulse 74 05/15/25 16:30 Resp 19 05/15/25 16:30 BP 134/83 05/15/25 15:23 Pulse Ox 98 05/15/25 15:39 O2 Del Method Room Air 05/15/25 15:39 Documenting provider has reviewed patient's vital signs: yes Course Vital Signs Vital signs: Vital Signs Temperature 98.3 F 05/15/25 15:23 Pulse Rate 80 05/15/25 15:23 Respiratory Rate 16 05/15/25 15:23 Blood Pressure 134/83 05/15/25 15:23 Pulse Oximetry 97 05/15/25 15:23 Oxygen Delivery Method Room Air 05/15/25 15:23 Temperature 98.3 F 05/15/25 15:23 Pulse Rate 74 05/15/25 16:30 Respiratory Rate 19 05/15/25 16:30 Blood Pressure 134/83 05/15/25 15:23 Pulse Oximetry 98 05/15/25 15:39 Oxygen Delivery Method Room Air 05/15/25 15:39 Medical Decision Making MDM Narrative Medical decision making narrative: This is a 19-year-old female that presented to the emergency department with complaints of 2 days of intermittent chest pain, shortness of breath, feeling of throat closing, and dizziness. She did have some vomiting 2 days ago when the symptoms first started. She denies any preceding events. She is 5 months and just recently restarted her sertraline 25 mg daily for her anxiety. She was seen here a little over a month ago for the same issues, she reports they are worse now these past 2 days. Her workup in this emergency department at the beginning of April included a normal CBC, CMP, troponin, BNP, and CTA chest that was negative for PE. Arrival patient is in no distress, 98% O2 saturation on room air. Patient speaks in full sentences. Vitals are stable. CBC, BMP, TSH, UA hCG, and chest x-ray ordered. EKG on arrival is in normal sinus rhythm, no ST elevation or ischemic changes. Labs CBC: WBC 13.3, no concern for infection, possibly reactive, Hgb 13.1 no anemia BMP: Within normal limits TSH: Within normal limits Urine hCG negative Chest x-ray negative for acute cardio pulmonology pathology. No acute cardiopulmonary abnormalities identified. No indication for repeat imaging such as CTA at this time given negative prior scan and low clinical suspicion for PE based on Wells criteria, absence of hypoxia, and reassuring clinical picture. Symptoms likely related to anxiety exacerbation, possibly influenced by status and medication adjustment. No signs of serotonin syndrome or adverse reaction to sertraline. Patient remained hemodynamically stable and was discharged in improved condition with return precautions and recommendations to continue sertraline and follow up with her motion pictures cartoonist or PCP. Differential Diagnosis Differential Diagnosis: Anxiety, GERD, hormonal changes, PE, cardiac issues Lab Data Lab results reviewed: Yes I reviewed the patient's lab results Labs: Lab Results 05/15/25 05/15/25 Range/Units 15:55 16:18 WBC 13.3 H (4.0-11.0) 10^3/uL RBC 5.00 (4.20-5.40) 10^6/uL Hgb 13.1 (12.0-16.0) g/dL Hct 40.0 (36.0-48.0) % MCV 80.0 L (81.0-99.0) fL MCH 26.2 L (26.7-34.0) pg MCHC 32.8 (29.9-35.2) g/dL RDW 15.0 (11.0-15.0) % Plt Count 361 (150-450) 10^3/uL MPV 9.2 L (9.5-13.5) fL Neut % (Auto) 83.1 H (43.0-75.0) % Lymph % (Auto) 11.2 L (20.5-60.0) % [place] % (Auto) 4.5 (1.7-12.0) % Eos % (Auto) 0.4 L (0.9-7.0) % Baso % (Auto) 0.4 (0.2-2.0) % Neut # (Auto) 11.0 H (1.4-6.5) 10^3/uL Lymph # (Auto) 1.5 (1.2-3.8) 10^3/uL [place] # (Auto) 0.6 (0.3-0.8) 10^3/uL Eos # (Auto) 0.1 (0.0-0.7) 10^3/uL Baso # (Auto) 0.1 (0.0-0.1) 10^3/uL Abs Immat Gran (auto) 0.05 H (0.00-0.03) 10^3/uL Imm/Tot Granulo (auto) 0.4 (0.0-0.5) % Sodium 138 (136-145) mmol/L Potassium 4.2 (3.5-5.1) mmol/L Chloride 104 (98-107) mmol/L Carbon Dioxide 27.8 (21.0-32.0) mmol/L Anion Gap 10.4 BUN 11.0 (7.0-18.0) mg/dL Creatinine 0.75 (0.55-1.02) mg/dL Est GFR ( Amer) >60 (>=60 mL/min/1.73m^2) Est GFR (Non-Af Amer) >60 (>=60 mL/min/1.73m^2) BUN/Creatinine Ratio 14.7 Glucose 98 (74-106) mg/dL Calcium 9.4 (8.5-10.1) mg/dL TSH 0.923 (0.358-3.740) uIU/mL Urine HCG, Qual Negative (NEGATIVE) Imaging Data Chest x-ray: Attestation: I have reviewed the pertinent imaging results. Radiologist's impression: ITS Impressions Chest X-Ray 05/15/25 15:46 IMPRESSION: No acute cardiopulmonary pathology. Impression dictated by: Jose Paniagua M.D. 05/15/2025 4:57 PM Dictation Location: [facility] Electronically authenticated by: [id number] Y Date: 05/15/2025 16:57 ECG Data Attestation: ?I have reviewed the pertinent ECG results. Discharge Plan Discharge Chief Complaint: Chest Pain Clinical Impression: Chest pain, Anxiety Patient Disposition: Home, Self-Care Time of Disposition Decision: 17:14 Condition: Good Mode of Transportation: Private Vehicle Prescriptions / Home Meds: New famotidine [Pepcid] 20 mg tablet 20 mg PO DAILY Qty: 14 0RF No Action acetaminophen 325 mg Tablet 650 mg PO Q6H PRN (Reason: Mild Pain) 28 Days Qty: 120 0RF Dermoplast (with menthol) 20-0.5 % Aerosol 1 spray topical Q2H PRN (Reason: Pain) 28 Days Qty: 1 0RF ferrous sulfate 325 mg (65 mg iron) Tablet 325 mg PO BID 28 Days Qty: 56 3RF ibuprofen 400 mg Tablet 800 mg PO Q8H 28 Days Qty: 168 1RF docusate sodium 100 mg Capsule 100 mg PO BID 28 Days Qty: 56 3RF lidocaine HCl 2 % Solution 5 ml topical ONCE PRN (Reason: Pain) 28 Days Qty: 1 3RF simethicone [Gas Relief 80 (simethicone)] 80 mg Tablet,Chewable 80 mg PO QID PRN (Reason: Abdominal Distention) 28 Days Qty: 90 1RF A.E.R. Witch Juliet 12.5-50 % Pads, Medicated 1 pad topical Q2H PRN (Reason: Pain) 28 Days Qty: 90 2RF norethindrone (contraceptive) [Jencycla] 0.35 mg tablet 0.35 mg PO DAILY sertraline 50 mg tablet 25 mg PO DAILY Print Language: Andorran Instructions: Chest Pain (ED), Anxiety (ED) Additional Instructions: Return Precautions: Seek immediate medical attention if any of the following occur: Worsening chest pain Shortness of breath at rest or with minimal activity Palpitations, fainting, or new/worsening dizziness Persistent vomiting or inability to tolerate fluids Swelling in the legs or sudden weight gain Thoughts of self-harm or feeling unable to cope Referrals: LAURA CANALES [Primary Care Provider, Family Practice] - 1 week Discharge Date/Time: 05/15/25 17:27
--- NOTE | 2025-05-15 15:46 | XR_ITS ---
[address] [address] Patient Name: ABHILASH CHOI MRN: [id number] date: 2005 Sex: F Assigned Patient Location: ER Current Patient Location: ER Accession/Order Number: [id number] Exam Date: 05/15/2025 16:08 Report Date: 05/15/2025 16:57 At the request of: REBECA ANGUIANO Procedure: XR chest 1V XR chest 1V 05/15/2025 4:15 PM SIGNS AND SYMPTOMS: ^Chest pain, SOB PROTOCOL: Frontal radiograph of the chest COMPARISON: 04/03/2025 FINDINGS: The trachea is midline. The heart and mediastinal structures are within normal limits. The lung parenchyma is clear. The bony thorax is intact. XR/XR chest 1V IMPRESSION: No acute cardiopulmonary pathology. Impression dictated by: Jose Paniagua M.D. 05/15/2025 4:57 PM Dictation Location: [place] [address] Electronically authenticated by: [id number] Y Date: 05/15/2025 16:57
[2025-05-15 16:04] LABS: Hematocrit 40.0 % (36.0-48.0); Hemoglobin 13.1 g/dL (12.0-16.0); Immature Granulocytes Abs Auto 0.05 10^3/uL (0.00-0.03); Immature Granulocytes Pct Auto 0.4 % (0.0-0.5); Lymphocytes Absolute Auto 1.5 10^3/uL (1.2-3.8); Mean Corpuscular HGB Conc 32.8 g/dL (29.9-35.2); Mean Corpuscular Hemoglobin 26.2 pg (26.7-34.0); Mean Corpuscular Volume 80.0 fL (81.0-99.0); Platelet Count 361 10^3/uL (150-450); Red Blood Count 5.00 10^6/uL (4.20-5.40); White Blood Count 13.3 10^3/uL (4.0-11.0)
[2025-05-15 16:21] LABS: Anion Gap 10.4; Blood Urea Nitrogen 11.0 mg/dL (7.0-18.0); Calcium 9.4 mg/dL (8.5-10.1); Carbon Dioxide 27.8 mmol/L (21.0-32.0); Chloride 104 mmol/L (98-107); Estimated GFR (African America >60 (>=60 mL/min/1.73m^2); Estimated GFR (Non-African Ame >60 (>=60 mL/min/1.73m^2); Glucose 98 mg/dL (74-106); Potassium 4.2 mmol/L (3.5-5.1); Sodium 138 mmol/L (136-145)
[2025-05-15 16:26] LABS: HCG Qualitative Urine* NEGATIVE (NEGATIVE)
[2025-05-15 16:34] LABS: Thyroid Stimulating Hormone 0.923 uIU/mL (0.358-3.740)
== END 2025-05-15 17:27 | disposition home or self-care (01) ==
PROVIDERS: Physician Assistant; Emergency Provider Emergency Medicine; Family Provider Family Medicine; PCP Family Medicine
DX: R07.9 Chest pain, unspecified (principal); F41.9 Anxiety disorder, unspecified; Z79.899 Other long term (current) drug therapy
CPT/HCPCS: 36415; 71045; 80048; 84443; 84703; 85025; 93005; 99285